=== PATIENT | female | born 2000 | race Caucasian/White ===

== ENCOUNTER 2019-06-23 12:50 | Emergency (ER) | payer OTHER, SELFPAY ==
[2019-06-23] MEDS ORDERED: dexAMETHasone 10 MG/ML VIAL ONE (13:22)
[2019-06-23] MEDS ORDERED: IPRATROPIUM BROM 0.5MG/2.5ML ONE (13:23)
[2019-06-23] MEDS ORDERED: ALBUTEROL 2.5 MG/3 ML NEB SOL ONE (13:23)
[2019-06-23] MEDS ORDERED: ONDANSETRON 4 MG (ODT) TAB ONE (15:37)
--- NOTE | 2019-06-23 15:46 | EDPHYS ---
Physician Documentation [facility] Name: Shannon Mcduffie Age: 19 yrs Sex: Female : 2000 Arrival Date: 06/23/2019 Time: 12:52 Bed 4 Private MD: ED Physician Ean Betancourt HPI: 06/23 13:04 This 19 yrs old Female presents to ER via Ambulatory with complaints of Chest jmm Pain, Breathing Difficulty. 13:04 The patient presents to the emergency department with wheezing, Current therapy: jmm albuterol inhaler. Onset: The symptoms/episode began/occurred gradually, 2 day(s) ago. Modifying factors: The symptoms are alleviated by inhaler, the symptoms are aggravated by damp environment. Associated signs and symptoms: Pertinent positives: chest pain, Pertinent negatives: fever. The patient has experienced similar episodes in the past. This is a 19 year old female with a history of asthma that presents to the ED with complaints of cough, wheezing, chest pain worsening over the past 2 days. Denies fever or chills. . 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 - Social history:: Smoking status: . - Ebola Screening: : Patient denies travel to an Ebola-affected area in the 21 days before illness onset. ROS: 13:04 Constitutional: Negative for fever, chills, and weight loss. jmm 13:04 Abdomen/GI: Negative for abdominal pain, nausea, vomiting, diarrhea, and constipation, Back: Negative for injury and pain, Neuro: Negative for headache, weakness, numbness, tingling, and seizure. 13:04 Cardiovascular: Positive for chest pain, with cough. 13:04 Respiratory: Positive for wheezing. 13:04 All other systems are negative. Exam: 13:04 Constitutional: This is a well developed, well nourished patient who is awake, alert, jmm and in no acute distress. Head/Face: atraumatic. Eyes: EOMI, no conjunctival erythema appreciated ENT: Moist Mucus Membranes Neck: Trachea midline, Supple Chest/axilla: Normal chest wall appearance and motion. 13:04 Abdomen/GI: Non distended, soft Back: Normal ROM Skin: General appearance color normal MS/ Extremity: Moves all extremities, no obvious deformities appreciated, no edema noted to the lower extremities Neuro: Awake and alert, normal gait Psych: Behavior is normal, Mood is normal, Patient is cooperative and pleasant 13:04 Cardiovascular: Rate: tachycardic, Rhythm: regular. 13:04 Respiratory: the patient does not display signs of respiratory distress, Respirations: normal, Breath sounds: wheezing: that is moderate, is heard diffusely. Vital Signs: 12:57 BP 132 / 84; Pulse 111; Resp 26; Temp 98.2; Pulse Ox 99% ; Weight 65.77 kg; Height 5 sv ft. 0 in. (152.40 cm); 13:47 BP 124 / 76; Pulse 122; Resp 20; Pulse Ox 100% on Nebulizer Mask; tw2 14:50 BP 130 / 83; Pulse 108; Resp 19; Pulse Ox 100% on R/A; tw2 15:29 BP 125 / 66; Pulse 111; Resp 19; Pulse Ox 100% on R/A; tw2 12:57 Body Mass Index 28.32 (65.77 kg, 152.40 cm) sv MDM: 13:04 Patient medically screened. [facility] 15:44 Data reviewed: vital signs, nurses notes. Counseling: I had a detailed discussion with abel the patient and/or guardian regarding: the historical points, exam findings, and any diagnostic results supporting the discharge/admit diagnosis, lab results, the need for outpatient follow up, to return to the emergency department if symptoms worsen or persist or if there are any questions or concerns that arise at home. ED course: Patient is alert and non toxic in appearance in the ED. Patient states she feels much better. Decreased wheezing on auscultation. Patient was otherwise given strict return precautions. Patient understood and agrees with the plan of care. . 06/23 15:26 Order name: Vital Signs; Complete Time: 15:29 abel Administered Medications: 13:30 Not Given (ordered po): Decadron - Dexamethasone 10 mg IVP once tw2 13:30 CANCELLED (Duplicate Order): Decadron - Dexamethasone 10 mg IVP once tw2 13:31 Drug: DuoNeb (3:1) (2.5 mg - 0.5 mg) 3 ml Route: Nebulizer; tw2 15:34 Follow up: Response: No adverse reaction tw2 13:31 Drug: Decadron 10 mg Route: PO; tw2 15:34 Follow up: Response: No adverse reaction tw2 15:36 Drug: Zofran 4 mg Route: PO; tw2 15:52 Follow up: Response: No adverse reaction tw2 Disposition: 17:06 Co-signature as Attending Physician, Ean Betancourt MD. rn Disposition: 06/23/19 15:45 Discharged to Home. Impression: Unspecified asthma with (acute) exacerbation. - Condition is Stable. - Discharge Instructions: Bronchospasm, Adult. - Prescriptions for Prednisone 20 mg Oral Tablet - take 3 tablet by ORAL route once daily for 5 days; 15 tablet. Albuterol Sulfate 90 mcg/actuation - inhale 1-2 puff by INHALATION route every 4-6 hours; 1 Inhaler. - Medication Reconciliation Form, Thank You Letter, Antibiotic Education, Prescription Opioid Use, Work release form, Family Work Release form. - Follow up: Private Physician; When: 2 - 3 days; Reason: Recheck today's complaints, Continuance of care, Re-evaluation by your physician. Signatures: Dena Cameron RN RN Cl Root PA PA [facility] Ean Betancourt MD MD rn Wise, Tara, RN RN tw2 Corrections: (The following items were deleted from the chart) 13:30 13:30 Decadron - Dexamethasone 10 mg IVP once ordered. tw2 tw2 13:47 13:11 IV Saline Lock ordered. [facility] tw2 15:51 15:45 06/23/2019 15:45 Discharged to Home. Impression: Palpitations; Drug Abuse. [facility] Condition is Stable. Forms are Work release form, Family Work Release, Medication Reconciliation Form, Thank You Letter, Antibiotic Education, Prescription Opioid Use. Follow up: Private Physician; When: 2 - 3 days; Reason: Recheck today's complaints, Continuance of care, Re-evaluation by your physician. [facility] 15:52 15:44 ED course: Patient is alert and non toxic in appearance in the ED. Patient states jmm he feels much better. Advised to d/c cocaine use. Patient otherwise given strict return precautions. Patient understood and agrees with the plan of care. . [facility] 16:02 15:51 06/23/2019 15:45 Discharged to Home. Impression: Unspecified asthma with (acute) tw2 exacerbation. Condition is Stable. Discharge Instructions: Stimulant Use Disorder-Cocaine, Palpitations. Forms are Work release form, Family Work Release, Medication Reconciliation Form, Thank You Letter, Antibiotic Education, Prescription Opioid Use. Follow up: Private Physician; When: 2 - 3 days; Reason: Recheck today's complaints, Continuance of care, Re-evaluation by your physician. abel
--- NOTE | 2019-06-23 15:46 | ER ---
Nurse's Notes [facility] Name: Shannon Mcduffie Age: 19 yrs Sex: Female : 2000 Arrival Date: 06/23/2019 Time: 12:52 Bed 4 Private MD: Diagnosis: Unspecified asthma with (acute) exacerbation Presentation: 06/23 12:57 Presenting complaint: Patient states: SOB with wheezing x 2 days, inhalers are not sv helping. c/o chest pain. Transition of care: patient was not received from another setting of care. Onset of symptoms was June 21, 2019. Risk Assessment: Do you want to hurt yourself or someone else? Patient reports no desire to harm self or others. Care prior to arrival: None. 12:57 Method Of Arrival: Ambulatory sv 12:57 Acuity: CLAIRE 2 sv 12:59 Initial Sepsis Screen: Does the patient meet any 2 criteria? RR > 20 per min. HR > 90 tw2 bpm. Yes Does the patient have a suspected source of infection? Yes: Productive cough/pneumonia. 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 - Social history:: Smoking status: . - Ebola Screening: : Patient denies travel to an Ebola-affected area in the 21 days before illness onset. Screenin:58 Abuse screen: Denies threats or abuse. Nutritional screening: No deficits noted. tw2 Tuberculosis screening: No symptoms or risk factors identified. Fall Risk None identified. Assessment: 13:00 Pain: Pain does not radiate. Pain began 2-3 days ago. Cardiovascular: Reports chest tw2 pain. 13:07 General: Appears in no apparent distress. Behavior is calm, cooperative, appropriate tw2 for age. Neuro: Level of Consciousness is awake, alert, obeys commands, Oriented to person, place, time, situation. Cardiovascular: Heart tones S1 S2 Capillary refill < 3 seconds Patient's skin is warm and dry. Respiratory: Reports shortness of breath at rest on exertion cough that is pain with respiration Airway is patent Respiratory effort is even, unlabored, Respiratory pattern is regular, tachypnea Breath sounds with wheezes in left posterior upper lobe and left posterior lower lobe. GI: No signs and/or symptoms were reported involving the gastrointestinal system. Abdomen is flat, Bowel sounds present X 4 quads. : No signs and/or symptoms were reported regarding the genitourinary system. EENT: No signs and/or symptoms were reported regarding the EENT system. Derm: No signs and/or symptoms reported regarding the dermatologic system. Musculoskeletal: Range of motion: intact in all extremities. 13:47 Reassessment: Patient appears in no apparent distress at this time. Patient and/or tw2 family updated on plan of care and expected duration. Pain level reassessed. Patient is alert, oriented x 3, equal unlabored respirations, skin warm/dry/pink. 14:08 Reassessment: Patient appears in no apparent distress at this time. Patient and/or tw2 family updated on plan of care and expected duration. Pain level reassessed. Patient is alert, oriented x 3, equal unlabored respirations, skin warm/dry/pink. Patient states feeling better. 14:50 Reassessment: Patient appears in no apparent distress at this time. Patient and/or tw2 family updated on plan of care and expected duration. Pain level reassessed. Patient is alert, oriented x 3, equal unlabored respirations, skin warm/dry/pink. Patient states feeling better. Vital Signs: 12:57 BP 132 / 84; Pulse 111; Resp 26; Temp 98.2; Pulse Ox 99% ; Weight 65.77 kg; Height 5 sv ft. 0 in. (152.40 cm); 13:47 BP 124 / 76; Pulse 122; Resp 20; Pulse Ox 100% on Nebulizer Mask; tw2 14:50 BP 130 / 83; Pulse 108; Resp 19; Pulse Ox 100% on R/A; tw2 15:29 BP 125 / 66; Pulse 111; Resp 19; Pulse Ox 100% on R/A; tw2 12:57 Body Mass Index 28.32 (65.77 kg, 152.40 cm) sv ED Course: 12:52 Patient arrived in ED. as 12:57 Triage completed. sv 12:58 Arm band placed on. sv 12:59 Patient maintains SpO2 saturation greater than 95% on room air. tw2 13:00 Bed in low position. Call light in reach. cardiac monitor on. Pulse ox on. NIBP on. tw2 13:01 Verenice Young RN is Primary Nurse. tw2 13:02 [facility] 13:02 Ean Betancourt MD is Attending Physician. [facility] 13:12 EKG done, by ED staff, reviewed by Ean Betancourt MD. kj1 13:28 Missed attempt(s): 22 gauge in left antecubital area. Bleeding controlled, band aid tw2 applied, catheter tip intact. Missed attempt(s): 22 gauge in right antecubital area. per Tech. Patricia Bleeding controlled, band aid applied, catheter tip intact. 16:02 No provider procedures requiring assistance completed. Patient did not have IV access tw2 during this emergency room visit. Administered Medications: 13:30 Not Given (ordered po): Decadron - Dexamethasone 10 mg IVP once tw2 13:30 CANCELLED (Duplicate Order): Decadron - Dexamethasone 10 mg IVP once tw2 13:31 Drug: DuoNeb (3:1) (2.5 mg - 0.5 mg) 3 ml Route: Nebulizer; tw2 15:34 Follow up: Response: No adverse reaction tw2 13:31 Drug: Decadron 10 mg Route: PO; tw2 15:34 Follow up: Response: No adverse reaction tw2 15:36 Drug: Zofran 4 mg Route: PO; tw2 15:52 Follow up: Response: No adverse reaction tw2 Outcome: 15:45 Discharge ordered by MD. [facility] 16:02 Discharged to home ambulatory, with significant other. tw2 16:02 Condition: stable 16:02 Discharge instructions given to patient, significant other, Instructed on discharge instructions, follow up and referral plans. medication usage, Demonstrated understanding of instructions, follow-up care, medications, Prescriptions given X 2. 16:02 Patient left the ED. tw2 Signatures: Dena Cameron RN RN Cl Root PA PA Ginna Colon as Verenice Young RN RN tw2 Britney Garland [email or web address] Corrections: (The following items were deleted from the chart) 12:58 12:57 Temp 98.2F; sv sv
[2019-06-23 16:07] VITALS: TEMP 98.2
[2019-06-23 16:08] VITALS: O2SAT 100
[2019-06-23 16:11] VITALS: BP 125/66
--- NOTE | 2019-06-25 05:30 | EKG ---
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
== END 2019-06-23 16:02 | disposition home or self-care (01) ==
LOC: ER 12:50
DX: J45.901 Unspecified asthma with (acute) exacerbation (principal)
CPT/HCPCS: 93005; 94640; 99285; J1100

== ENCOUNTER 2022-06-30 22:39 | Emergency (ER) | payer SELFPAY ==
--- OUTSIDE RECORDS SUMMARY | 2022-06-30 22:43 | XMS REPORT | Continuity of Care Document ---
:2000 Author Organization [facility] t Address [address] [place] [address] Care Team Providers Name Role Phone LoKirilljoana Boo Primary Care Physician Alex Lo Attending Clinician Unavailable Gerard Attending Clinician Unavailable DIPTI NEAL Attending Clinician Unavailable Pippa Attending Clinician Unavailable Doctor Unassigned, [place] Attending Clinician Unavailable QUENTIN Attending Clinician Unavailable ROQUE JERNIGAN Attending Clinician Unavailable ROQUE JERNIGAN Attending Clinician Unavailable Roque Jernigan MD Attending Clinician Gerard Admitting Clinician Unavailable Pippa Admitting Clinician Unavailable QUNETIN Admitting Clinician Unavailable Payers Payer Name Policy Type Policy Number Effective Date Expiration Date S lakhwinder ALLIED BENEFIT [id number] [facility] [id number] 2016 [employer] 00:00:00 (MEDICAID HMO) ALLIED BENEFIT 53 [id number] [facility] Problems Condition Condition Condition Status Onset Resolution Last Treating Co mments Source Name Details Category Date Date Treatment Clinician Date 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 Anxiety 2-14 da and and 00:00: Medical depressive Depressive 00 Gr oup disorder Disorder Problem Active 2021-06 [facility] 2-14 da 00:00: Medical 00 Group History of History of Problem Active 2021-06 M [facility] pre-eclamp Pre-eclamp 2-14 da renetta renetta 00:00: Medical 00 Group Rubella Rubella Problem Active 2021-06 [place] non-immune Non-immune 2-14 da 00:00: Medical 00 Group Removal of Removal of Problem Active M [facility] intrauteri Intrauteri 7-19 da ne device ne Device 00:00: [facility] rachel 00 Group Menorrhagi Menorrhagi Problem Active M [facility] a a 6-07 da 00:00: Medical 00 Group IUD IUD Problem Active [place] contracept Contracept 6-07 da ion ion 00:00: Medical 00 Group Insertion Insertion Problem Active [place] of of 3-08 da intrauteri Intrauteri 00:00: Me dical ne ne 00 Group contracept Contracept thalia device thalia Device Sore Sore Problem Active [place] throat Throat 2-23 da symptom Symptom 00:00: Medical 00 Group Acute Acute Problem Active [place] cystitis Cystitis 2-23 da 00:00: Medical 00 Group Infection Infection Problem Active [place] of of 2-23 da 00:00: Medica l section Section 00 Group AND/OR AND/OR perineal Perineal wound Wound Leukocytes Leukocytes Problem Active M [facility] in urine in Urine 2-15 da 00:00: Medical 00 Group Candidiasi Candidiasi Problem Active M [facility] s of s of 2-15 da vagina Vagina 00:00: Medical 00 Group Problem Active 2017- M [facility] depression Depression 2-08 da 00:00: Medical 00 Group Episiotomy Episiotomy Problem Active [facility] infection Infection 2-08 da 00:00: Medical 00 Group Problem Active [facility] care Care 2-08 da 00:00: Medical 00 Group Mild Mild Problem Active [place] pre-eclamp Pre-eclamp 1-11 da renetta renetta 00:00: Medical 00 Group Back pain Back Pain Problem Active 2016-06 [facility] complicati Complicati 2-11 da ng ng 00:00: Medical 00 Grou p Problem Active 2016-06 [facility] screening Screening 1-13 da 00:00: Medical 00 Group Gastroesop Gastroesop Problem Active 2016-06 [facility] hageal hageal 0-16 da reflux Reflux 00:00: Medical disease Disease 00 Group without without esophagiti Esophagiti s s Asthma Asthma Problem Active [place] 8-21 da 00:00: Medical 00 Group RhD RhD Problem Active [place] negative Negative 8 da 00:00: Medical 00 Group [id number] PTSD Problem Common (post-trau Spirit matic [facility] stress [facility] disorder) [facility] [id number] Moderate Problem Comm on persistent Spirit asthma - [facility] without [facility] complicati [facility] Metallic Metallic Problem Commo n taste taste [facility] - [facility] [id number] Unable to Problem Comm on concentrat Spirit e - [facility] [id number] Migraine Problem Comm on without Spirit aura and - [facility] without [facility] migrainosu Medica l s, not Center intractabl e [id number] Other Problem Common chronic Spirit pain - [facility] [id number] Memory Problem Common change Spirit - [facility] No known No known Disease Unive rs active active ity of problems problems [place] [facility] Allergies, Adverse Reactions, Alerts This patient has no known allergies or adverse reactions. Social History Social Habit Start Date Stop Date Quantity Comments Source History of Tobacco Common [facility] - [facility] Use [facility] Sex Assigned At Common Sp aicha - [facility] Exposure to 2021-12-05 2021-12-15 Not sure [facility] SARS-CoV-2 (event) 00:00:00 08:32:00 [facility] Smoking Status Start Date Stop Date Source Tobacco smoking consumption [facility] Branch Never Smoker Common [facility] Medications Ordered Filled Start Stop Current Ordering Indication Dosage Frequency Signature Comments Components Source Medication Medication Date Date Medication? Clinician (SIG) Name Name Symbicort Symbicort 2021-06- No 2{puffs BID Symbicort 80-4.5 80-4.5 06-2816 } 80-4.5 MCG/ACT MCG/ACT 00:00: 00:00 MCG/ACT 00 :00 Symbicort Symbicort 2021-06- No 2{puffs BID Symbicort 80-4.5 80-4.5 06-2816 } 80-4.5 MCG/ACT MCG/ACT 00:00: 00:00 MCG/ACT 00 :00 busPIRone busPIRone 2021-06 No 1{table BID busPIRone HCl 10 MG HCl 10 MG 0-12 t} HCl 10 MG 00:00: 00 ProAir HFA ProAir HFA 2021-06 No 2{puffs ProAir HFA 108 (90 108 (90 0-12 _as_nee 108 (90 Base) Base) 00:00: ded} Base) MCG/ACT MCG/ACT 00 MCG/ACT Topiramate Topiramate 2021-06 No QD Topiramate 25 MG 25 MG 0-12 25 MG 00:00: 00 busPIRone busPIRone 2021-06 No 1{table BID busPIRone HCl 10 MG HCl 10 MG 0-12 t} HCl 10 MG 00:00: 00 ProAir HFA ProAir HFA 2021-06 No 2{puffs ProAir HFA 108 (90 108 (90 0-12 _as_nee 108 (90 Base) Base) 00:00: ded} Base) MCG/ACT MCG/ACT 00 MCG/ACT Topiramate Topiramate 2021-06 No QD Topiramate 25 MG 25 MG 0-12 25 MG 00:00: 00 Fluticasone Fluticasone No 1{puff} BID Fluticason -Salmeterol -Salmeterol 02-17 e-Salmeter 232-14 232-14 00:00: ol 232-14 MCG/ACT MCG/ACT 00 MCG/ACT buPROPion buPROPion No 1{table QD buPROPion HCl ER (SR) HCl ER (SR) 02-17 t_in_th HCl ER 150 MG 150 MG 00:00: e_morni (SR) 150 00 ng} MG Fluticasone Fluticasone No 1{puff} BID Fluticason -Salmeterol -Salmeterol 02-17 e-Salmeter 232-14 232-14 00:00: ol 232-14 MCG/ACT MCG/ACT 00 MCG/ACT buPROPion buPROPion 0 No 1{table QD buPROPion HCl ER (SR) HCl ER (SR) 02-17 t_in_th HCl ER 150 MG 150 MG 00:00: e_morni (SR) 150 00 ng} MG Fluticasone Fluticasone No 1{puff} BID Fluticason -Salmeterol -Salmeterol 02-17 e-Salmeter 232-14 232-14 00:00: ol 232-14 MCG/ACT MCG/ACT 00 MCG/ACT buPROPion buPROPion 0 No 1{table QD buPROPion HCl ER (SR) HCl ER (SR) 02-17 t_in_th HCl ER 150 MG 150 MG 00:00: e_morni (SR) 150 00 ng} MG Fluticasone Fluticasone No 1{puff} BID Fluticason -Salmeterol -Salmeterol 02-17 e-Salmeter 232-14 232-14 00:00: ol 232-14 MCG/ACT MCG/ACT 00 MCG/ACT buPROPion buPROPion 0 No 1{table QD buPROPion HCl ER (SR) HCl ER (SR) 02-17 t_in_th HCl ER 150 MG 150 MG 00:00: e_morni (SR) 150 00 ng} MG Fluticasone Fluticasone 0 No 1{puff} BID Fluticason -Salmeterol -Salmeterol 02-17 e-Salmeter 232-14 232-14 00:00: ol 232-14 MCG/ACT MCG/ACT 00 MCG/ACT buPROPion buPROPion 2021-0 No 1{table QD buPROPion HCl ER (SR) HCl ER (SR) 02-17 t_in_th HCl ER 150 MG 150 MG 00:00: e_morni (SR) 150 00 ng} MG Amitriptyli Amitriptyli No QD Amitriptyl ne HCl 25 ne HCl 25 8-08 ine HCl 25 MG MG 00:00: MG 00 Amitriptyli Amitriptyli No QD Amitriptyl ne HCl 25 ne HCl 25 8-08 ine HCl 25 MG MG 00:00: MG 00 Amitriptyli Amitriptyli No QD Amitriptyl ne HCl 25 ne HCl 25 8-08 ine HCl 25 MG MG 00:00: MG 00 Symbicort Symbicort 2021- No 2{puffs BID Symbicort 80-4.5 80-4.5 01-18 } 80-4.5 MCG/ACT MCG/ACT 00:00: 00:00 MCG/ACT 00 :00 Symbicort Symbicort 2021- No 2{puffs BID Symbicort 80-4.5 80-4.5 01-18 } 80-4.5 MCG/ACT MCG/ACT 00:00: 00:00 MCG/ACT 00 :00 Symbicort Symbicort 2021- No 2{puffs BID Symbicort 80-4.5 80-4.5 01-18 } 80-4.5 MCG/ACT MCG/ACT 00:00: 00:00 MCG/ACT 00 :00 rho,D, Yes rho(D) Univers immune 12-11 immune ity of globulin 09:23: globulin [place] 1,500 unit 31 1,500 unit Med ical (300 mcg) (300 mcg) [facility] syringe intramuscu lar syringe Inject 300 micrograms by intramuscu lar route. acetaminoph Yes Tylenol-Co Univers en-codeine 12-11 deine #3 ity o f (TYLENOL-CO 09:23: 300 mg-30 [place] DEINE #3) 31 mg tablet Medic al 300-30 mg Take 1 Branch tablet tablet every 6 hours by oral route. cephALEXin Yes cephalexin U nivers 500 mg 12-11 500 mg ity of capsule 09:23: capsule [address] Branch citalopram Yes citalopram U nivers 20 mg 12-11 20 mg ity of tablet 09:23: tablet [address] Ferrous Yes ferrous Univers Gluconate 12-11 gluconate ity o f 240 mg (27 09:23: 240 mg (27 [place] mg iron) 31 mg iron) Medical tablet tablet Branch Take 1 tablet every day by oral route. ibuprofen Yes ibuprofen Uni vers 800 mg 12-11 800 mg ity of tablet 09:23: tablet [place] [address] Take 1 Medical tablet 3 Branch times a day by oral route as needed. metoclopram Yes metoclopra Univers jim HCl 10 12-11 mide 10 mg ity of mg tablet 09:23: tablet [address] omeprazole Yes omeprazole U nivers 20 mg 12-11 20 mg ity of capsule 09:23: [place] [facility] Branch rho,D, Yes rho(D) Univers immune 12-11 immune ity of globulin 09:23: globulin [place] 1,500 unit 1,500 unit Med ical (300 mcg) (300 mcg) [facility] h syringe intramuscu lar syringe Inject 300 micrograms by intramuscu lar route. acetaminoph Yes Tylenol-Co Univers en-codeine 12-11 deine #3 ity o f (TYLENOL-CO 09:23: 300 mg-30 [place] DEINE #3) 31 mg tablet Medic al 300-30 mg Take 1 Branch tablet tablet every 6 hours by oral route. cephALEXin Yes cephalexin U nivers 500 mg 12-11 500 mg ity of capsule 09:23: capsule [address] citalopram Yes citalopram U nivers 20 mg 12-11 20 mg ity of tablet 09:23: tablet [address] Ferrous Yes ferrous Univers Gluconate 12-11 gluconate ity o f 240 mg (27 09:23: 240 mg (27 [place] mg iron) 31 mg iron) Medical tablet tablet Branch Take 1 tablet every day by oral route. ibuprofen Yes ibuprofen Uni vers 800 mg 12-11 800 mg ity of tablet 09:23: tablet [place] [address] Take 1 Medical tablet 3 Branch times a day by oral route as needed. metoclopram Yes metoclopra Univers jim HCl 10 12-11 mide 10 mg ity of mg tablet 09:23: tablet [place] [address] Medical Branch omeprazole Yes omeprazole U nivers 20 mg 12-11 20 mg ity of capsule 09:23: capsule,[place] [facility] Branch escitalopra Yes Ángel s m oxalate 6-20 ity of 10 mg 00:00: [place] tablet 00 Medical Branch escitalopra Yes Abbyer s m oxalate 6-20 ity of 10 mg 00:00: [place] tablet 00 [facility] Branch albuterol albuterol No albuterol [place] sulfate HFA sulfate HFA sulfate da 90 90 HFA 90 Medical mcg/actuati mcg/actuati mcg/actuat Group on aerosol on aerosol ion inhaler inhaler aerosol inhaler buspirone 5 buspirone 5 No 1 BID buspirone [place] mg tablet mg tablet 5 mg da Take 1 Take 1 tablet Medical tablet tablet Take 1 Group twice a day twice a day tablet by oral by oral twice a route. route. day by oral route. fluticasone fluticasone No fluticason [place] 232 232 e 232 da mcg-salmete mcg-salmete mcg-salmet Medical rol 14 rol 14 maria luisa 14 Group mcg/actuati mcg/actuati mcg/actuat on breath on breath ion breath activated activated activated powdr powdr powdr Symbicort Symbicort No Symbicort [place] 160 mcg-4.5 160 mcg-4.5 160 d a mcg/actuati mcg/actuati mcg-4.5 Medical on HFA on HFA mcg/actuat Group aerosol aerosol ion HFA inhaler inhaler aerosol inhaler Symbicort Symbicort No Symbicort [place] 80 mcg-4.5 80 mcg-4.5 80 mcg-4.5 da mcg/actuati mcg/actuati mcg/actuat Medical on HFA on HFA ion HFA Group aerosol aerosol aerosol inhaler inhaler inhaler albuterol albuterol No albuterol [place] sulfate HFA sulfate HFA sulfate da 90 90 HFA 90 Medical mcg/actuati mcg/actuati mcg/actuat Group on aerosol on aerosol ion inhaler inhaler aerosol inhaler buspirone 5 buspirone 5 No buspirone [place] mg tablet mg tablet 5 mg da Take 1 Take 1 tablet Medical tablet tablet Take 1 Group twice a day twice a day tablet by oral by oral twice a route. route. day by oral route. Wellbutrin Wellbutrin No 1 BID Wellbutrin [place] SR 150 mg SR 150 mg SR 150 mg da tablet, 12 tablet, 12 tablet, 12 Medical hr hr hr Group sustained-r sustained-r sustained- elease Take elease Take release 1 tablet 1 tablet Take 1 twice a day twice a day tablet by oral by oral twice a route as route as day by directed directed oral route for 30 for 30 as days. days. directed for 30 days. Tri-Lo-Spri Tri-Lo-Spri No 1{table QD Tri-Lo-Spr ntec ntec t} intec 0.18/0.215/ 0.18/0.215/ 0.18/0.215 0.25 MG-25 0.25 MG-25 /0.25 MCG MCG MG-25 MCG Spironolact Spironolact No 1{table QD Spironolac one 50 MG one 50 MG t} tone 50 MG Tri-Lo-Spri Tri-Lo-Spri No 1{table QD Tri-Lo-Spr ntec ntec t} intec 0.18/0.215/ 0.18/0.215/ 0.18/0.215 0.25 MG-25 0.25 MG-25 /0.25 MCG MCG MG-25 MCG Spironolact Spironolact No 1{table QD Spironolac one 50 MG one 50 MG t} tone 50 MG Tri-Lo-Spri Tri-Lo-Spri No 1{table QD Tri-Lo-Spr ntec ntec t} intec 0.18/0.215/ 0.18/0.215/ 0.18/0.215 0.25 MG-25 0.25 MG-25 /0.25 MCG MCG MG-25 MCG Spironolact Spironolact No 1{table QD Spironolac one 50 MG one 50 MG t} tone 50 MG Tri-Lo-Spri Tri-Lo-Spri No 1{table QD Tri-Lo-Spr ntec ntec t} intec 0.18/0.215/ 0.18/0.215/ 0.18/0.215 0.25 MG-25 0.25 MG-25 /0.25 MCG MCG MG-25 MCG Spironolact Spironolact No 1{table QD Spironolac one 50 MG one 50 MG t} tone 50 MG Tri-Lo-Spri Tri-Lo-Spri No 1{table QD Tri-Lo-Spr ntec ntec t} intec 0.18/0.215/ 0.18/0.215/ 0.18/0.215 0.25 MG-25 0.25 MG-25 /0.25 MCG MCG MG-25 MCG Spironolact Spironolact No 1{table QD Spironolac one 50 MG one 50 MG t} tone 50 MG Spironolact Spironolact No 1{table QD Spironolac one 50 MG one 50 MG t} tone 50 MG Tri-Lo-Spri Tri-Lo-Spri No 1{table QD Tri-Lo-Spr ntec ntec t} intec 0.18/0.215/ 0.18/0.215/ 0.18/0.215 0.25 MG-25 0.25 MG-25 /0.25 MCG MCG MG-25 MCG Escitalopra Escitalopra No 1{table QD Escitalopr m Oxalate m Oxalate t} am Oxalate 10 MG 10 MG 10 MG Atomoxetine Atomoxetine No 1{capsu QD Atomoxetin HCl 40 MG HCl 40 MG le_in_t e HCl 40 he_morn MG ing} Spironolact Spironolact No 1{table QD Spironolac one 50 MG one 50 MG t} tone 50 MG Tri-Lo-Spri Tri-Lo-Spri No 1{table QD Tri-Lo-Spr ntec ntec t} intec 0.18/0.215/ 0.18/0.215/ 0.18/0.215 0.25 MG-25 0.25 MG-25 /0.25 MCG MCG MG-25 MCG Atomoxetine Atomoxetine No 1{capsu QD Atomoxetin HCl 80 MG HCl 80 MG le_in_t e HCl 80 he_morn MG ing} Spironolact Spironolact No 1{table QD Spironolac one 50 MG one 50 MG t} tone 50 MG Tri-Lo-Spri Tri-Lo-Spri No 1{table QD Tri-Lo-Spr ntec ntec t} intec 0.18/0.215/ 0.18/0.215/ 0.18/0.215 0.25 MG-25 0.25 MG-25 /0.25 MCG MCG MG-25 MCG Atomoxetine Atomoxetine No 1{capsu QD Atomoxetin HCl 80 MG HCl 80 MG le_in_t e HCl 80 he_morn MG ing} Spironolact Spironolact No 1{table QD Spironolac one 50 MG one 50 MG t} tone 50 MG Tri-Lo-Spri Tri-Lo-Spri No 1{table QD Tri-Lo-Spr ntec ntec t} intec 0.18/0.215/ 0.18/0.215/ 0.18/0.215 0.25 MG-25 0.25 MG-25 /0.25 MCG MCG MG-25 MCG Atomoxetine Atomoxetine No 1{capsu QD Atomoxetin HCl 80 MG HCl 80 MG le_in_t e HCl 80 he_morn MG ing} Spironolact Spironolact No 1{table QD Spironolac one 50 MG one 50 MG t} tone 50 MG Atomoxetine Atomoxetine No 1{capsu QD Atomoxetin HCl 80 MG HCl 80 MG le_in_t e HCl 80 he_morn MG ing} Tri-Lo-Spri Tri-Lo-Spri No 1{table QD Tri-Lo-Spr ntec ntec t} intec 0.18/0.215/ 0.18/0.215/ 0.18/0.215 0.25 MG-25 0.25 MG-25 /0.25 MCG MCG MG-25 MCG Amitriptyli Amitriptyli No 1{table QD Amitriptyl ne HCl 25 ne HCl 25 t_at_be ine HCl 25 MG MG dtime} MG Spironolact Spironolact No 1{table QD Spironolac one 50 MG one 50 MG t} tone 50 MG Atomoxetine Atomoxetine No 1{capsu QD Atomoxetin HCl 80 MG HCl 80 MG le_in_t e HCl 80 he_morn MG ing} Tri-Lo-Spri Tri-Lo-Spri No 1{table QD Tri-Lo-Spr ntec ntec t} intec 0.18/0.215/ 0.18/0.215/ 0.18/0.215 0.25 MG-25 0.25 MG-25 /0.25 MCG MCG MG-25 MCG Amitriptyli Amitriptyli No 1{table QD Amitriptyl ne HCl 25 ne HCl 25 t_at_be ine HCl 25 MG MG dtime} MG Spironolact Spironolact No 1{table QD Spironolac one 50 MG one 50 MG t} tone 50 MG Atomoxetine Atomoxetine No 1{capsu QD Atomoxetin HCl 80 MG HCl 80 MG le_in_t e HCl 80 he_morn MG ing} Tri-Lo-Spri Tri-Lo-Spri No 1{table QD Tri-Lo-Spr ntec ntec t} intec 0.18/0.215/ 0.18/0.215/ 0.18/0.215 0.25 MG-25 0.25 MG-25 /0.25 MCG MCG MG-25 MCG Amitriptyli Amitriptyli No 1{table QD Amitriptyl ne HCl 25 ne HCl 25 t_at_be ine HCl 25 MG MG dtime} MG Spironolact Spironolact No 1{table QD Spironolac one 50 MG one 50 MG t} tone 50 MG Tri-Lo-Spri Tri-Lo-Spri No 1{table QD Tri-Lo-Spr ntec ntec t} intec 0.18/0.215/ 0.18/0.215/ 0.18/0.215 0.25 MG-25 0.25 MG-25 /0.25 MCG MCG MG-25 MCG Atomoxetine Atomoxetine No 1{capsu QD Atomoxetin HCl 80 MG HCl 80 MG le_in_t e HCl 80 he_morn MG ing} Fluticasone Fluticasone No 1{puff} BID Fluticason -Salmeterol -Salmeterol e-Salmeter 232-14 232-14 ol 232-14 MCG/ACT MCG/ACT MCG/ACT ProAir HFA ProAir HFA No 2{puffs ProAir HFA 108 (90 108 (90 _as_nee 108 (90 Base) Base) ded} Base) MCG/ACT MCG/ACT MCG/ACT Tri-Lo-Spri Tri-Lo-Spri No 1{table QD Tri-Lo-Spr ntec ntec t} intec 0.18/0.215/ 0.18/0.215/ 0.18/0.215 0.25 MG-25 0.25 MG-25 /0.25 MCG MCG MG-25 MCG Spironolact Spironolact No 1{table QD Spironolac one 50 MG one 50 MG t} tone 50 MG ProAir HFA ProAir HFA No 2{puffs ProAir HFA 108 (90 108 (90 _as_nee 108 (90 Base) Base) ded} Base) MCG/ACT MCG/ACT MCG/ACT Tri-Lo-Spri Tri-Lo-Spri No 1{table QD Tri-Lo-Spr ntec ntec t} intec 0.18/0.215/ 0.18/0.215/ 0.18/0.215 0.25 MG-25 0.25 MG-25 /0.25 MCG MCG MG-25 MCG Spironolact Spironolact No 1{table QD Spironolac one 50 MG one 50 MG t} tone 50 MG Spironolact Spironolact No 1{table QD Spironolac one 50 MG one 50 MG t} tone 50 MG Atomoxetine Atomoxetine No 1{capsu QD Atomoxetin HCl 80 MG HCl 80 MG le_in_t e HCl 80 he_morn MG ing} Tri-Lo-Spri Tri-Lo-Spri No 1{table QD Tri-Lo-Spr ntec ntec t} intec 0.18/0.215/ 0.18/0.215/ 0.18/0.215 0.25 MG-25 0.25 MG-25 /0.25 MCG MCG MG-25 MCG Amitriptyli Amitriptyli No 1{table QD Amitriptyl ne HCl 25 ne HCl 25 t_at_be ine HCl 25 MG MG dtime} MG Spironolact Spironolact No 1{table QD Spironolac one 50 MG one 50 MG t} tone 50 MG Atomoxetine Atomoxetine No 1{capsu QD Atomoxetin HCl 80 MG HCl 80 MG le_in_t e HCl 80 he_morn MG ing} Tri-Lo-Spri Tri-Lo-Spri No 1{table QD Tri-Lo-Spr ntec ntec t} intec 0.18/0.215/ 0.18/0.215/ 0.18/0.215 0.25 MG-25 0.25 MG-25 /0.25 MCG MCG MG-25 MCG Amitriptyli Amitriptyli No 1{table QD Amitriptyl ne HCl 25 ne HCl 25 t_at_be ine HCl 25 MG MG dtime} MG Spironolact Spironolact No 1{table QD Spironolac one 50 MG one 50 MG t} tone 50 MG Tri-Lo-Spri Tri-Lo-Spri No 1{table QD Tri-Lo-Spr ntec ntec t} intec 0.18/0.215/ 0.18/0.215/ 0.18/0.215 0.25 MG-25 0.25 MG-25 /0.25 MCG MCG MG-25 MCG Atomoxetine Atomoxetine No 1{capsu QD Atomoxetin HCl 80 MG HCl 80 MG le_in_t e HCl 80 he_morn MG ing} Fluticasone Fluticasone No 1{puff} BID Fluticason -Salmeterol -Salmeterol e-Salmeter 232-14 232-14 ol 232-14 MCG/ACT MCG/ACT MCG/ACT Tri-Lo-Spri Tri-Lo-Spri No 1{table QD Tri-Lo-Spr ntec ntec t} intec 0.18/0.215/ 0.18/0.215/ 0.18/0.215 0.25 MG-25 0.25 MG-25 /0.25 MCG MCG MG-25 MCG Spironolact Spironolact No 1{table QD Spironolac one 50 MG one 50 MG t} tone 50 MG Vital Signs Vital Name Observation Time Observation Value Comments Source BP Systolic 2022-06-23 00:00:00 120 mm[Hg] [facility] Body Weight 2022-06-23 00:00:00 151.5 [lb_av] [facility] BP Diastolic 2022-06-23 00:00:00 87 mm[Hg] [facility] Height 2022-06-23 00:00:00 60 [in_i] [facility] BMI (Body Mass 2022-06-23 00:00:00 29.6 kg/m2 [facility]) Group BP Diastolic 2022-05-26 00:00:00 75 mm[Hg] [facility] Height 2022-05-26 00:00:00 60 [facility] BMI (Body Mass 2022-05-26 00:00:00 29.9 kg/m2 [facility] Index) Group BP Systolic 2022-05-26 00:00:00 122 mm[Hg] [facility] Body Weight 2022-05-26 00:00:00 153.1 [lb_av[facility] height 2022-04-28 14:00:00 61 [in_i] [facility] weight 2022-04-28 14:00:00 151 [lb_av] [facility] temperature 2022-04-28 14:00:00 97.5 [degF] [facility] bmi 2022-04-28 14:00:00 28.53 kg/m2 [facility] oximetry 2022-04-28 14:00:00 100 % [facility] respiratory rate 2022-04-28 14:00:00 18 /min Comm on [facility] blood pressure 2022-04-28 14:00:00 134 mm[Hg] Common [facility] - systolic [facility] blood pressure 2022-04-28 14:00:00 81 mm[Hg] Common [facility] - diastolic [facility] height 2022-03-24 15:50:00 61 [in_i] Common [facility] weight 2022-03-24 15:50:00 150.7 [lb_av] [facility] temperature 2022-03-24 15:50:00 97.2 [degF] [facility] bmi 2022-03-24 15:50:00 28.47 kg/m2 [facility] oximetry 2022-03-24 15:50:00 99 % Common [facility] respiratory rate 2022-03-24 15:50:00 18 /min Comm on [facility] blood pressure 2022-03-24 15:50:00 117 mm[Hg] Common [facility] - systolic [facility] blood pressure 2022-03-24 15:50:00 71 mm[Hg] Common [facility] - diastolic [facility] height 2022-02-17 16:00:00 61 [in_i] Common [facility] weight 2022-02-17 16:00:00 148.1 [lb_av] [facility] temperature 2022-02-17 16:00:00 97.9 [degF] [facility] bmi 2022-02-17 16:00:00 27.98 kg/m2 [facility] oximetry 2022-02-17 16:00:00 96 % [facility] respiratory rate 2022-02-17 16:00:00 17 /min Comm on [facility] blood pressure 2022-02-17 16:00:00 121 mm[Hg] [facility] systolic [facility] blood pressure 2022-02-17 16:00:00 67 mm[Hg] Common [facility] - diastolic [facility] height 2022-01-18 16:10:00 61 [in_i] [facility] weight 2022-01-18 16:10:00 143.4 [lb_av] [facility] temperature 2022-01-18 16:10:00 97.9 [degF] Common [facility] bmi 2022-01-18 16:10:00 27.09 kg/m2 [facility] oximetry 2022-01-18 16:10:00 100 % Common [facility] respiratory rate 2022-01-18 16:10:00 18 /min Comm on [facility] blood pressure 2022-01-18 16:10:00 129 mm[Hg] Common [facility] - systolic [facility] blood pressure 2022-01-18 16:10:00 71 mm[Hg] Common [facility] - diastolic [facility] height 2021-12-21 13:50:00 61 [in_i] Common [facility] weight 2021-12-21 13:50:00 138 [lb_av] Common [facility] temperature 2021-12-21 13:50:00 98.0 [degF] [facility] bmi 2021-12-21 13:50:00 26.07 kg/m2 [facility] oximetry 2021-12-21 13:50:00 100 % [facility] respiratory rate 2021-12-21 13:50:00 16 /min Comm on [facility] - [facility] blood pressure 2021-12-21 13:50:00 121 mm[Hg] Common [facility] - systolic [facility] blood pressure 2021-12-21 13:50:00 74 mm[Hg] Common [facility] - diastolic [facility] Systolic blood 2021-12-11 14:27:00 120 mm[Hg] Univer sity of pressure [facility] Diastolic blood 2021-12-11 14:27:00 83 mm[Hg] Unive rsity of pressure [facility] Heart rate 2021-12-11 14:27:00 76 /min [facility] Body height 2021-12-11 14:27:00 152.4 cm [facility] Body weight 2021-12-11 14:27:00 63.957 kg [facility] BMI 2021-12-11 14:27:00 27.54 kg/m2 [facility] Oxygen saturation in 2021-12-11 14:27:00 98 /min [facility] Arterial blood by [facility] Pulse oximetry Branch blood pressure 2021-11-12 13:40:00 58 mm[Hg] [facility] - diastolic [facility] height 2021-11-12 13:40:00 60 [in_i] [facility] weight 2021-11-12 13:40:00 141.4 [lb_av] [facility] temperature 2021-11-12 13:40:00 98.1 [degF] [facility] bmi 2021-11-12 13:40:00 27.61 kg/m2 [facility] oximetry 2021-11-12 13:40:00 100 % [facility] respiratory rate 2021-11-12 13:40:00 18 /min Comm on [facility] blood pressure 2021-11-12 13:40:00 121 mm[Hg] [facility] systolic [facility] Procedures Procedure Date / Time Performed Performing Clinician [facility] e US, obstetric, 2022-06-23 00:00:00 [facility] US, obstetric, 2022-05-26 00:00:00 [facility] EXTERNAL PROVIDER 2022-01-19 05:01:00 Doctor Unassigned, No [facility] RECORDS Name Medical Branch Plan of Care Planned Activity Planned Date Details Comments Source Diagnostic Test 2022-06-23 urinalysis, dipstick Luis valadez [facility] Pending 00:00:00 [code = urinalysis, Group dipstick] Diagnostic Test 2022-06-23 aneuploidy risk, Ismael hernandez [facility] Pending 00:00:00 chromosome specific Group circulating cell free (ccf) DNA, maternal serum [code = aneuploidy risk, chromosome specific circulating cell free (ccf) DNA, maternal serum] Diagnostic Test 2022-06-23 genetic screen, Melida [facility] Pending 00:00:00 unspecified specimen Group [code = genetic screen, unspecified specimen] Future Appointment 2022-07-21 [facility] 11:15:00 [address] [facility] [address]; , [place] [address] Future Appointment 2022-07-21 [facility] [address] [facility] 11:00:00 [facility] [address]; , [place] [address] Instructions [facility] Group Encounters Start End Encounter Admission Attending Care Care Encounter Source Date/Time Date/Time Type Type Clinicians Facility Department ID 2021-12-18 Outpatient WINSOME Lo [facility] [id number] Common 14:13:01 [facility] 2021-11-12 Outpatient WINSOME Lo [facility] [id number] Common 13:07:03 [facility] 2022-06-23 2022-06-23 Outpatient White_M MMG MMG [id number] [place] 00:00:00 00:00:00 0111 Medical [facility] 2022-06-23 2022-06-23 Rabia MM [place] - [id number] M at[place]or 00:00:00 00:00:00 Aziza Hermosillo MD: [address] [place] [address] , Ph. [phone] 2022-06-17 2022-06-17 Outpatient White_M MMG MMG [id number] [place] 00:00:00 00:00:00 0105 Medical Group 2022-05-26 2022-05-26 Outpatient [facility] [id number] [place] 10:55:00 10:55:00 DIPTI [id number] [facility] 2022-05-26 2022-05-26 Outpatient White_M MMG MMG [id number] [place] 00:00:00 00:00:00 1214 Medical Group 2022-05-26 2022-05-26 Dipti [facility] [place] - [id number] M at[place]or 00:00:00 00:00:00 Discovery Kayla Neal-BC: Medical Medical [address] [place] [address], [place] [address] , Ph. [phone] 2022-04-30 2022-04-30 ([facility]) [facility] [id number] Co mmon 00:00:00 00:00:00 [facility] 2022-04-28 2022-04-28 OFFICE STLMLC STLMLC [id number] Co mmon 00:00:00 00:00:00 VISIT Spirit ESTAB PT - CHI LEVEL 4 [facility] 2022-04-26 2022-04-26 Outpatient Shield MMG MMG [id number] [place] 00:00:00 00:00:00 1114 [facility] 2022-03-24 2022-03-24 OFFICE STLMLC STLMLC [id number] Co mmon 00:00:00 00:00:00 VISIT Spirit ESTAB PT - CHI LEVEL [address] [place] [address] 2022-03-04 2022-03-04 (WEB) STLMLC STLMLC [id number] Co mmon 00:00:00 00:00:00 [facility] 2022-03-04 2022-03-04 (WEB) STLMLC STLMLC [id number] Co mmon 00:00:00 00:00:00 [facility] 2022-02-17 2022-02-17 OFFICE STLMLC STLMLC [id number] Co mmon 00:00:00 00:00:00 VISIT Spirit ESTAB PT - CHI LEVEL [address] [place] [address] 2022-02-11 2022-02-11 (WEB) STLMLC STLMLC [id number] Co mmon 00:00:00 00:00:00 [facility] 2022-01-20 2022-01-20 (WEB) STLMLC STLMLC [id number] Co mmon 00:00:00 00:00:00 [facility] 2022-01-19 2022-01-19 Orders Doctor ROSALINA [id number] Univers 00:00:00 00:00:00 Only Unassigned, MARGO [id number] ity of [place] [facility] [id number] Toby as [phone] [facility] rachel 009 Branch 2022-01-18 2022-01-18 OFFICE STLMLC STLMLC [id number] Co mmon 00:00:00 00:00:00 VISIT Spirit ESTAB PT - CHI LEVEL 4 [facility] 2022-01-07 2022-01-07 Outpatient WILFRED CORDERO [facility] [id number] [place] 00:00:00 00:00:00 SSA 0728 da [facility] 2021-12-21 2021-12-21 [facility] [id number] Co mmon 00:00:00 00:00:00 VISIT Darrin ARGUELLES PT - CHI LEVEL 4 [facility] 2021-12-15 2021-12-15 Outpatient ROQUE KRAFT [facility] [id number] Univers 08:40:00 09:22:31 ROQUE JERNIGAN [facility] 2021-12-15 2021-12-15 Office Rere [facility] [id number] Univers 08:40:00 09:22:31 Visit [facility] [id number] ity [facility] [id number] Toby as SAMUEL?BLEA [phone] [address] OFFICE [facility] 2021-12-15 2021-12-15 Outpatient ROQUE KRAFT [facility] [id number] Univers 08:40:00 09:22:31 ROQUE JERNIGAN [facility] 2021-12-11 2021-12-11 Office Rere MOTRISTIN [id number] Univers 09:00:00 09:40:00 Visit [facility] [id number] ity leonides [place] [id number] Toby as SAMUEL?BLEA [phone] [address] MEDICAL OFFICE BUILDING 2021-12-11 2021-12-11 Outpatient ROQUE KRAFT [facility] [id number] Univers 09:00:00 09:00:00 ROQUE JERNIGAN rashaad [facility] 2021-12-11 2021-12-11 Outpatient ROQUE KRAFT [facility] [id number] Univers 09:00:00 09:00:00 ROQUE JERNIGAN [facility] 2021-12-11 2021-12-11 Orders Doctor ROSALINA [id number] Univers 00:00:00 00:00:00 Only Unassigned, MARGO [id number] ity of [place] [facility] [id number] Toby as [phone] [place] [address] Branch 2021-11-16 2021-11-16 (WEB) STLMLC STLMLC [id number] Co mmon 00:00:00 00:00:00 [facility] 2021-11-13 2021-11-13 (WEB) STLMLC STLMLC [id number] Co mmon 00:00:00 00:00:00 [facility] 2021-11-13 2021-11-13 (WEB) STLMLC STLMLC [id number] Co mmon 00:00:00 00:00:00 [facility] 2021-11-13 2021-11-13 (WEB) STLMLC STLMLC [id number] Co mmon 00:00:00 00:00:00 [facility] 2021-11-13 2021-11-13 (WEB) STLMLC STLMLC [id number] Co mmon 00:00:00 00:00:00 [facility] 2021-11-12 2021-11-12 OFFICE STLMLC STLMLC [id number] Co mmon 00:00:00 00:00:00 VISIT NEW [facility] it PT LEVEL 3 [facility] 2020-04-30 2020-04-30 Outpatient Shield MMG [facility] [id number] [place] 02:24:00 02:24:00 1118 [facility] Results Test Description Test Time Test Comments Results Result Comments Source Urinalysis macro (dipstick) panel - Urine 2022-06-23 15:10:2 2 Test Item Value Reference Range Interpretation Comme nts Leukocytes (test code = Leukocytes) Trace Nitrite (test code = Nitrite) negative Urobilinogen (test code = Urobilinogen) .2 Protein (test code = Protein) Negative pH (test code = pH) 7.0 Blood (test code = Blood) Negative Specific [place] (test code = Specific [place]) 1.025 Ketone (test code = Ketone) Negative Bilirubin (test code = Bilirubin) Negative Glucose (test code = Glucose) Negative Appearance (test code = Appearance) Clear Color (test code = Color) Yellow [facility],urine pres id [id number] 08:42:00 Test Item Value Reference Range Interpretation Comments culture,urine (test scant skin christina code = culture,urine) present. pathogen not present at 2 days. [facility]/NG/TV + reflex HR [id number] 00:00:00 Test Item Value Reference Range Interpretation Comments TP reflex HPV ASCUS,CT/NG/TV (test normal code = TP reflex HPV ASCUS,CT/NG/TV) CT/NG (test code = CT/NG) normal trichomonas vaginalis addon - swab normal (test code = trichomonas vaginalis addon - swab) [facility] pres id [id number] 09:20:00 Test Item Value Reference Range Interpretation Comments culture,urine (test no growth after 1 day code = culture,urine) [facility] virus surface Ag [Presence] in Serum 2022-05-27 08:15:00 Test Item Value Reference Range Interpretation Comments .hepatitis B surface antigen (test negative negative code = .hepatitis B surface antigen) [facility] Ab [Presence] in Serum by [id number] 13:50:00 Test Item Value Reference Range Interpretation Comments RPR (test code = RPR) nonreactive nonreactive [facility]+2 Ab [Presence] in [id number] 12:43:00 Test Item Value Reference Range Interpretation Comments HIV P24 Ag (test code = HIV P24 non-reactive nonreactive Ag) HIV-1/2 Ab (test code = HIV-1/2 non-reactive nonreactive Ab) [facility] ([facility]-house)2022-05-26 12:43:00 Test Item Value Reference Range Interpretation Comments HIV P24 Ag (test code = HIV P24 non-reactive nonreactive Ag) HIV-1/2 Ab (test code = HIV-1/2 non-reactive nonreactive Ab) [facility] virus Ab [Titer] in [id number] 12:21:00 Test Item Value Reference Range Interpretation Comments rubella IgG (test code = rubella 7.49 IU/mL IgG) [facility] HospitalDrugs identified in Urine by Screen [id number] 11:55:00 Test Item Value Reference Range Interpretation Comments amphetamines screen urine (test code negative negative = amphetamines screen urine) barbiturates, urine quant. (test negative negative code = barbiturates, urine quant.) benzodiazepines screen urine (test negative negative code = benzodiazepines screen urine) cannabinoids (test code = negative negative cannabinoids) cocaine (test code = cocaine) negative negative opiates (test code = opiates) negative negative phencyclidine (test code = negative negative phencyclidine) methadone (test code = methadone) negative negative propoxyphene (test code = negative negative propoxyphene) oxycodone (test code = oxycodone) negative negative drug screen note (test code = drug . screen note) [place] [address] panel drug [id number] 11:41:00 Test Item Value Reference Range Interpretation Comments drug screen note (test code = drug . screen note) [facility] pres id [id number] 11:41:00 Test Item Value Reference Range Interpretation Comments culture,urine (test specimen has been code = culture,urine) received in lab and IS in progress. [place] [address] panel drug [id number] 11:41:00 Test Item Value Reference Range Interpretation Comments drug screen note (test code = drug . screen note) [facility] Hospitalcuure,urine pres id [id number] 11:41:00 Test Item Value Reference Range Interpretation Comments culture,urine (test specimen has been code = culture,urine) received in lab and IS in progress. [facility] W Auto Differential panel - [id number] 11:40:00 Test Item Value Reference Range Interpretation Comments white blood count (test code = 8.7 K/uL 4.0-11.5 white blood count) red blood count (test code = red 4.47 M/uL 3.80-5.20 blood count) hemoglobin (test code = 12.8 g/dL 10.5-15.7 hemoglobin) hematocrit (test code = 40.2 % 34.0-50.0 hematocrit) mean corpuscular volume (test code 89.9 fL 86.0-100.0 = mean corpuscular volume) mean corpuscular hemoglobin (test 28.6 pg 26.2-33.4 code = mean corpuscular hemoglobin) mean corpuscular HGB conc (test 31.8 g/dL 30.0-34.0 code = mean corpuscular HGB conc) red cell distribution width (test 12.1 % 12.0-15.5 code = red cell distribution width) platelet count (test code = 323 K/uL 165-450 platelet count) mean platelet volume (test code = 8.6 fL 9.4-12.6 L mean platelet volume) neutrophils % (test code = 68.0 % 44.4-80.1 neutrophils %) Ig% (test code = Ig%) 0.5 % 0.0-0.4 H lymphocyte% (test code = 21.6 % 10.0-50.0 lymphocyte%) mono % (test code = mono %) 6.9 % 3.6-12.0 eos % (test code = eos %) 2.5 % 0.0-5.4 basophil % (test code = basophil 0.5 % 0.1-1.2 %) absolute neutrophil count (test 5.90 K/uL 1.56-6.13 code = absolute neutrophil count) Ig# (test code = Ig#) 0.04 K/uL 0.00-0.03 H lymph # (test code = lymph #) 1.87 K/uL 1.18-3.74 mono # (test code = mono #) 0.60 K/uL 0.24-0.86 eos # (test code = eos #) 0.22 K/uL 0.04-0.36 basophil # (test code = basophil 0.04 K/uL 0.01-0.08 #) NRBC% (test code = NRBC%) 0 /100 WBC 0-0.2 NRBC# (test code = NRBC#) 0 K/uL [facility] HospitalUrinalysis macro (dipstick) panel - [id number] 09:33:13 Test Item Value Reference Range Interpretation Comments Leukocytes (test code = Small Leukocytes) Nitrite (test code = negative Nitrite) Urobilinogen (test code = .2 Urobilinogen) Protein (test code = Negative Protein) pH (test code = pH) 6.0 Blood (test code = Blood) Non-Hemolyzed: Trace Specific [place] (test 1.025 code = Specific [place]) Ketone (test code = Negative Ketone) Bilirubin (test code = Negative Bilirubin) Glucose (test code = Negative Glucose) Appearance (test code = Clear Appearance) Color (test code = Color) Yellow [facility] HospitalUrinalysis macro (dipstick) panel - [id number] 09:33:13 Test Item Value Reference Range Interpretation Comments Leukocytes (test code = Small Leukocytes) Nitrite (test code = negative Nitrite) Urobilinogen (test code = .2 Urobilinogen) Protein (test code = Negative Protein) pH (test code = pH) 6.0 Blood (test code = Blood) Non-Hemolyzed: Trace Specific [place] (test 1.025 code = Specific [place]) Ketone (test code = Negative Ketone) Bilirubin (test code = Negative Bilirubin) Glucose (test code = Negative Glucose) Appearance (test code = Clear Appearance) Color (test code = Color) Yellow [facility] Hospitalpregnancy test, [id number] 09:32:49 Test Item Value Reference Range Interpretation Comments Test (test code = positive Test) [facility] test, [id number] 09:32:49 Test Item Value Reference Range Interpretation Comments Test (test code = positive Test) [facility]
[2022-06-30 23:02] LABS: Urine Blood 1+ (Negative); Urine Glucose Negative (Negative); Urine Protein Trace (Negative); Urine Specific Gravity >=1.030 (1.005-1.030); Urine pH 5.5 (5.0-7.0)
[2022-06-30] MEDS ORDERED: NA CHLORIDE 0.9% 1,000 ML ONE (23:06)
[2022-06-30 23:56] LABS: SARS-COV-2 RT PCR POSITIVE (NEGATIVE)
[2022-06-30 23:59] LABS: Potassium 3.1 mmol/L (3.5-5.1)
[2022-07-01 00:01] LABS: Absolute Lymphocytes (CBC) 0.3 K/uL (0.7-4.9); Hematocrit 34.9 % (36.0-45.0); Lymphocytes % 5.6 % (15.3-44.8); MCV 87.9 fL (80-100); RBC Red Blood Cell Count 3.97 M/uL (3.86-4.86)
--- NOTE | 2022-07-01 00:20 | EDPHYS ---
Physician Documentation [facility] Name: Shannon Mcduffie Age: 22 yrs Sex: Female : 2000 Arrival Date: 06/30/2022 Time: 22:40 Bed 13 Private MD: ED Physician German Jolley HPI: 07/01 00:05 This 22 yrs old Female presents to ER via Ambulatory with complaints of [facility] Abdominal Cramping, Hip Pain, Vomiting, Fever. 00:05 The patient presents to the emergency department with malaise. The estimated [facility] gestational age is 133 weeks. course: care: private OB physician, Dr. varela. Associated signs and symptoms: The patient has no apparent associated signs or symptoms. The patient has not experienced similar symptoms in the past. 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 - Social history:: Smoking status: Patient denies any tobacco usage or history of. - Family history:: not pertinent. ROS: 07/01 00:05 Constitutional: Negative for fever, chills, and weight loss, Eyes: Negative for injury, juan pain, redness, and discharge, ENT: Negative for injury, pain, and discharge, Neck: Negative for injury, pain, and swelling, Cardiovascular: Negative for chest pain, palpitations, and edema, Respiratory: Negative for shortness of breath, cough, wheezing, and pleuritic chest pain, Abdomen/GI: Negative for abdominal pain, nausea, vomiting, diarrhea, and constipation, Back: Negative for injury and pain, : Negative for injury, bleeding, discharge, and swelling, Skin: Negative for injury, rash, and discoloration, Neuro: Negative for headache, weakness, numbness, tingling, and seizure, Psych: Negative for depression, anxiety, suicide ideation, homicidal ideation, and hallucinations, Allergy/Immunology: Negative for hives, rash, and allergies, Endocrine: Negative for neck swelling, polydipsia, polyuria, polyphagia, and marked weight changes, Hematologic/Lymphatic: Negative for swollen nodes, abnormal bleeding, and unusual bruising. MS/extremity: Positive for of the left hip and right hip. Exam: 00:05 Constitutional: This is a well developed, well nourished patient who is awake, alert, juan and in no acute distress. Head/Face: Normocephalic, atraumatic. Eyes: Pupils equal round and reactive to light, extra-ocular motions intact. Lids and lashes normal. Conjunctiva and sclera are non-icteric and not injected. Cornea within normal limits. Periorbital areas with no swelling, redness, or edema. ENT: Nares patent. No nasal discharge, no septal abnormalities noted. Tympanic membranes are normal and external auditory canals are clear. Oropharynx with no redness, swelling, or masses, exudates, or evidence of obstruction, uvula midline. Mucous membranes moist. Neck: Trachea midline, no thyromegaly or masses palpated, and no cervical lymphadenopathy. Supple, full range of motion without nuchal rigidity, or vertebral point tenderness. No Meningismus. Chest/axilla: Normal chest wall appearance and motion. Nontender with no deformity. No lesions are appreciated. Cardiovascular: Regular rate and rhythm with a normal S1 and S2. No gallops, murmurs, or rubs. Normal PMI, no JVD. No pulse deficits. Respiratory: Lungs have equal breath sounds bilaterally, clear to auscultation and percussion. No rales, rhonchi or wheezes noted. No increased work of breathing, no retractions or nasal flaring. Back: No spinal tenderness. No costovertebral tenderness. Full range of motion. Female : Normal external genitalia. Skin: Warm, dry with normal turgor. Normal color with no rashes, no lesions, and no evidence of cellulitis. MS/ Extremity: Pulses equal, no cyanosis. Neurovascular intact. Full, normal range of motion. Neuro: Awake and alert, GCS 15, oriented to person, place, time, and situation. Cranial nerves II-XII grossly intact. Motor strength 5/5 in all extremities. Sensory grossly intact. Cerebellar exam normal. Normal gait. Psych: Awake, alert, with orientation to person, place and time. Behavior, mood, and affect are within normal limits. 00:05 Abdomen/GI: Inspection: gravid appearance, is noted. Vital Signs: 06/30 22:41 BP 114 / 64; Pulse 104; Resp 16; Temp 98.6(O); Pulse Ox 99% ; Weight 68.04 kg; Height 5 kd3 ft. (152.40 cm); Pain 6/10; 07/01 00:15 BP 108 / 72; Pulse 114; Resp 16; Temp 99.1(O); Pulse Ox 100% on R/A; jb4 06/30 22:41 Body Mass Index 29.29 (68.04 kg, 152.40 cm) kd3 MDM: 06/30 22:51 Patient medically screened. juan 23:54 Patient medically screened. [facility] 07/01 00:13 Differential diagnosis: flu/covid. Data reviewed: vital signs, nurses notes, lab test juan result(s), radiologic studies, ultrasound. Consideration of Admission/Observation Patient was admitted/placed on observation. Escalation of care including admission/observation considered. I considered the following discharge prescriptions or medication management in the emergency department Medications were administered in the Emergency Department. See MAR. Test considered but Not performed: X-ray: cxr. Care significantly affected by the following chronic conditions: asthma. 06/30 22:54 Order name: Abo/rh Typing; Complete Time: 00:20 [facility] 06/30 22:54 Order name: Basic Metabolic Panel; Complete Time: 00:20 [facility] 06/30 22:54 Order name: CBC with Diff; Complete Time: 00:20 [facility] 06/30 22:54 Order name: Urine Culture [facility] 06/30 22:54 Order name: Blood Culture Adult (2) [facility] 06/30 22:57 Order name: Lactate w/ 2H reflex if indic.; Complete Time: 00:20 [facility] 06/30 22:54 Order name: IV Saline Lock; Complete Time: 23:23 [facility] 06/30 22:54 Order name: US Rp Exam Complete 06/30 22:54 Order name: US OB Limited [facility] 06/30 22:57 Order name: COVID-19/FLU A+B; Complete Time: 23:59 juan 06/30 23:02 Order name: Urine Dipstick-Ancillary; Complete Time: 23:59 EDMS 06/30 22:54 Order name: Labs collected and sent; Complete Time: 23:23 [facility] 06/30 22:54 Order name: NPO; Complete Time: 22:57 [facility] 06/30 22:54 Order name: Urine Dipstick-Ancillary (obtain specimen); Complete Time: 22:57 [facility] Administered Medications: 06/30 23:46 Drug: NS 0.9% 1000 ml Route: IV; Rate: 1 bolus; Site: left antecubital; jb4 07/01 00:41 Drug: Potassium Effervescent Tablet 50 mEq Route: PO; jb4 Disposition Summary: 07/01/22 00:19 Discharge Ordered Location: Home [facility] Problem: [facility] Symptoms: have improved juan Condition: Stable [facility] Diagnosis - 13 weeks gestation of juan - Coronavirus infection, unspecified juan - SARS-associated coronavirus as the cause of diseases classified elsewhere juan - Hypokalemia juan Followup: [facility] - With: Private Physician - When: 2 - 3 days - Reason: Recheck today's complaints, Continuance of care, Re-evaluation by your physician Discharge Instructions: - Discharge Summary Sheet [facility] - Potassium Content of Foods juan - Care juan - Upper Respiratory Infection, Adult juan - COVID-19 [facility] - 10 Things You Can Do to Manage Your COVID-19 Symptoms at Home - [facility] - COVID-19: Quarantine vs. Isolation - [facility] - Prevent the Spread of COVID-19 if You Are Sick - [facility] Forms: - Medication Reconciliation Form [facility] - Thank You Letter juan - Antibiotic Education juan - Prescription Opioid Use [facility] Prescriptions: - budesonide 180 mcg/actuation Inhalation aerosol powdr breath activated - inhale 2 puff by INHALATION route 2 times per day; 1 Pump; Refills: 0, Product juan Selection Permitted - Zithromax Z-Mikie 250 mg Oral Tablet - take 1 tablet by ORAL route as directed for 5 days Day 1 - take two (2) tablets [facility] one time. Day 2, 3, 4 , 5 take one (1) tablet once daily.; 6 tablet; Refills: 0, Product Selection Permitted Signatures: Dispatcher [employer] German Briceño MD MD cha Bryson, James, RN RN jb4 Maryan Holland RN RN kd3
--- NOTE | 2022-07-01 00:20 | ER ---
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 My hips also hurt that is dull and achy. the cramping and pain started around 4:30 this afternoon and I started vomiting this morning around 6:30. I am worried about pre term labor. Chief complaint:. Coronavirus screen: Vaccine status:. Coronavirus screen: Vaccine status: Patient reports being unvaccinated. Ebola Screen: No symptoms or risks identified at this time. Initial Sepsis Screen: Does the patient meet any 2 criteria? No. Patient's initial sepsis screen is negative. Does the patient have a suspected source of infection? No. Patient's initial sepsis screen is negative. Risk Assessment: Do you want to hurt yourself or someone else? Patient reports no desire to harm self or others. Onset of symptoms was June 30, 2022. 22:41 Method Of Arrival: Ambulatory kd3 22:41 Acuity: CLAIRE 3 kd3 Triage Assessment: 22:50 General: Appears in no apparent distress. Behavior is calm, cooperative. Pain: kd3 Complains of pain in left lower quadrant. Neuro: Level of Consciousness is awake, alert, obeys commands, Oriented to person, place, time, situation. Respiratory: Airway is patent Trachea midline Respiratory effort is even, unlabored, Respiratory pattern is regular, symmetrical. GI: Reports lower abdominal pain, nausea, vomiting. 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 - Social history:: Smoking status: Patient denies any tobacco usage or history of. - Family history:: not pertinent. Screenin/19 00:52 [facility] ED Fall Risk Assessment (Adult) History of falling in the last 3 months, jb4 including since admission No falls in past 3 months (0 pts) Confusion or Disorientation No (0 pts) Intoxicated or Sedated No (0 pts) Impaired Gait No (0 pts) Mobility Assist Device Used No (0 pt) Altered Elimination No (0 pt) Score/Fall Risk Level 0 - 2 = Low Risk Oriented to surroundings, Maintained a safe environment. Abuse screen: Denies threats or abuse. Nutritional screening: No deficits noted. Tuberculosis screening: No symptoms or risk factors identified. Assessment: 06/30 23:00 Reassessment: see triage note. jb4 07/01 00:15 Reassessment: Patient appears in no apparent distress at this time. Patient and/or jb4 family updated on plan of care and expected duration. Pain level reassessed. Patient is alert, oriented x 3, equal unlabored respirations, skin warm/dry/pink. 00:52 Reassessment: Patient appears in no apparent distress at this time. Patient and/or jb4 family updated on plan of care and expected duration. Pain level reassessed. Patient is alert, oriented x 3, equal unlabored respirations, skin warm/dry/pink. Vital Signs: 06/30 22:41 BP 114 / 64; Pulse 104; Resp 16; Temp 98.6(O); Pulse Ox 99% ; Weight 68.04 kg; Height 5 kd3 ft. (152.40 cm); Pain 6/10; 07/01 00:15 BP 108 / 72; Pulse 114; Resp 16; Temp 99.1(O); Pulse Ox 100% on R/A; jb4 06/30 22:41 Body Mass Index 29.29 (68.04 kg, 152.40 cm) kd3 ED Course: 06/30 22:40 Patient arrived in ED. ja2 22:50 Triage completed. kd3 22:50 German Jolley MD is Attending Physician. [facility] 22:50 Arm band placed on right wrist. kd3 22:56 Ramón Carter, RN is Primary Nurse. jb4 23:23 Inserted saline lock: 20 gauge in left antecubital area, using aseptic technique. Blood ds4 collected. 23:51 US Rp Exam Complete In Process Unspecified. EDMS 23:51 US OB Limited In Process Unspecified. EDMS 07/01 00:52 Patient has correct armband on for positive identification. Bed in low position. Call jb4 light in reach. Side rails up X 1. 00:52 No provider procedures requiring assistance completed. IV discontinued, intact, jb4 bleeding controlled, No redness/swelling at site. Pressure dressing applied. Administered Medications: 06/30 23:46 Drug: NS 0.9% 1000 ml Route: IV; Rate: 1 bolus; Site: left antecubital; jb4 07/01 00:41 Drug: Potassium Effervescent Tablet 50 mEq Route: PO; jb4 Medication: 00:52 VIS not applicable for this client. jb4 Outcome: 00:19 Discharge ordered by . [facility] 00:52 Discharged to home ambulatory. jb4 00:52 Condition: stable 00:52 Discharge instructions given to patient, Instructed on discharge instructions, follow up and referral plans. medication usage, Demonstrated understanding of instructions, follow-up care, medications, Prescriptions given X 3. 00:53 Patient left the ED. jb4 Signatures: Dispatcher [employer] [facility] German Jolley MD MD cha Swanson, Donovan ds4 Ramón Carter, RN RN jb4 Tawana Allen Kyli RN RN kd3
[2022-07-01] MEDS ORDERED: POTASSIUM 25 MEQ EFFERV TAB ONE (00:31)
[2022-07-01 01:49] VITALS: BP 108/72; TEMP 99.1; O2SAT 100
--- NOTE | 2022-07-01 10:02 | RAD REPORT ---
EXAM DESCRIPTION: US - OB Limited - 06/30/2022 11:49 pm CLINICAL HISTORY: 22 years Female ABD CRAMPING, COMPARISON: None. TECHNIQUE: Real-time, knox scale, and Doppler transabdominal sonographic imaging was performed to ev aluate the gravid uterus. Transvaginal images were acquired to better evaluate the fetus. FINDINGS: There is a single live intrauterine gestation in breech presentation with a heart ra te of 157 bpm. The placenta is fundal and anterior in position without placenta previa or sub-placent al collection. The cervix is closed, measuring 4.0 cm. Various biometric measurements reveal an estim ated gestational age of 13 weeks. There is a subjectively normal amount of amniotic fluid. The maternal left ovary is normal. The right ovary is not seen. IMPRESSION: Normal-appearing single live intrauterine gestation of approximately 13 weeks. 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 The interpreting radiologist is fully responsible for the content of the report.
--- NOTE | 2022-07-01 10:12 | RAD REPORT ---
EXAM DESCRIPTION: US - Renal Ultrasound-Complete - 06/30/2022 11:49 pm CLINICAL HISTORY: 22 years Female PAIN COMPARISON: No prior exams provided for comparison. TECHNIQUE: Real-time and knox scale sonographic imaging of the kidneys and urinary bladder was perfo rmed. FINDINGS: The right kidney measures 10.5 x 4.8 x 4.7 cm without visualized focal renal lesion, shado wing calculus, hydronephrosis, or perinephric fluid collection. The left kidney measures 10.5 x 5.4 x 4.3 cm without visualized focal renal lesion, shadowing calculu s, hydronephrosis, or perinephric fluid collection. The urinary bladder appears normal. Gravid uterus noted. IMPRESSION: Normal renal ultrasound. No hydronephrosis. 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 The interpreting radiologist is fully responsible for the content of the report.
== END 2022-07-01 00:53 | disposition home or self-care (01) ==
LOC: ER 22:39
DX: O98.511 Other viral diseases complicating pregnancy, first trimester (principal); U07.1 COVID-19; R50.9 Fever, unspecified; J45.909 Unspecified asthma, uncomplicated; F41.9 Anxiety disorder, unspecified; F32.A Depression, unspecified
CPT/HCPCS: 0240U; 36415; 76770; 76815; 80048; 81003; 83605; 85025; 86900; 86901; 87040; 87086; 87088; J7030

== ENCOUNTER 2024-07-24 10:47 | Emergency (ER) | payer OTHER ==
--- OUTSIDE RECORDS SUMMARY | 2024-07-24 10:53 | XMS REPORT | Continuity of Care Document ---
Author Name Unknown Address [address] [facility] [address] [place] [address] [facility] Address [address] [facility] [address] [place] [address] Care Team Providers Care Bean Weigher Name Role Phone Wally Alex M Primary Care Physician [phone] Alex Lo Attending Clinician Unavailable Val_Rajeev Attending Clinician Unavailable GC_GCBZW_Cresencioa_S Attending Clinician Unavaila ROSALBA Cardenas Attending Clinician Unavaila RA Wayne Attending Clinician UnavailDIPTI Faria Attending Clinician Unavailable Pippa Attending Clinician Unavailable Doctor Unassigned, Landa Attending Clinician U navailable STEVO_ANNELISE Attending Clinician Unavailable ROQUE JERNIGAN Attending Clinician Unavail able ROQUE JERNIGAN Attending Clinician Unavail able Roque Jernigan MD Attending Clinician QUINTIN DAVILA Attending Clinician Unavailable MARYAM ARNOLD Attending Clinician Unavailable JOSE E SIBLEY Attending Clinician Unavailable ANNELISE WHITESIDE Attending Clinician Unavailable White_M Admitting Clinician Unavailable GC_GCBZW_Kadiyala_S Admitting Clinician Unavaila ROSALBA Cardenas Admitting Clinician Unavaila edel Arnold Admitting Clinician Unavailable STEVO_ANNELISE Admitting Clinician Unavailable RA BARRIOS Admitting Clinician Unavailabl e Payers Payer Name Policy Type Policy Number Effective Date Expirati on Date Source [facility] (MEDICAID HMO) [id number] 2016 00:00:00 [facility] [id number] [employer] [id number] ALL[employer] [id number] [facility] Problems Condition Name Condition Details Condition Category Status Onset Date Resolution Date Last Treatment Date Treating Clinician Comments Source Mixed anxiety and depressive disorder Mixed Anxiety and Depressive Disorder Problem Active 2021-06 00:00: 00 [facility] History of pre-eclamp renetta History of Pre-eclamp renetta Problem Active 2021-06 00:00: 00 [facility] Rubella non-immune Rubella Non-immune Problem Active 2021-06 00:00: 00 [facility] Removal of intrauteri ne device Removal of Intrauteri ne Device Problem Active 12-29 00:00: 00 [facility] Menorrhagi a Menorrhagi a Problem Active 11-17 00:00: 00 [facility] Uses IUD (intrauter ine device) contracept ion Uses IUD (Intrauter ine Device) Contracept ion Problem Active 11-17 00:00: 00 [facility] Insertion of intrauteri ne contracept thalia device Insertion of Intrauteri ne Contracept thalia Device Problem Active 08 00:00: 00 [facility] Sore throat Sore Throat Problem Active 08-05 00:00: 00 [facility] Acute cystitis Acute Cystitis Problem Active 08-05 00:00: 00 [facility] Infection of section AND/OR perineal wound Infection of Section AND/OR Perineal Wound Problem Active 08-05 00:00: 00 [facility] Leukocytes in urine Leukocytes in Urine Problem Active 07-28 00:00: 00 [facility] Candidiasi s of vagina Candidiasi s of Vagina Problem Active 07-28 00:00: 00 [facility] depression Depression Problem Active 07-21 00:00: 00 [facility] Episiotomy infection Episiotomy Infection Problem Active 07-21 00:00: 00 [facility] care Care Problem Active 07-21 00:00: 00 [facility] Mild pre-eclamp renetta Mild Pre-eclamp renetta Problem Active 06-23 00:00: 00 [facility] Back pain complicati ng Back Pain Complicati ng Problem Active 2016-06 00:00: 00 [facility] screening Screening Problem Active 2016-06 00:00: 00 [facility] Gastroesop hageal reflux disease without esophagiti s Gastroesop hageal Reflux Disease without Esophagiti s Problem Active 2016-06 00:00: 00 [facility] Asthma Asthma Problem Active 01-31 00:00: 00 [facility] RhD negative RhD Negative Problem Active 01-31 00:00: 00 [facility] [id number] PTSD (post-trau matic stress disorder) Problem [facility] [id number] Moderate persistent asthma without complicati on Problem [facility] Metallic taste Metallic taste Problem [facility] [id number] Mood disorder Problem [facility] [id number] Bipolar [address] [facility] [id number] Unable to concentrat e Problem [facility] [id number] Migraine without aura and without status migrainosu s, not intractabl e Problem [facility] [id number] Other chronic pain Problem [facility] [id number] Memory change Problem [facility] No known active problems No known active problems Disease [facility] Social History Social Habit Start Date Stop Date Quantity Comments Source History of Tobacco Use [facility] Sex Assigned At [facility] Exposure to SARS-CoV-2 (event) 2021-12-05 00:00:00 2021-12-15 08:32:00 Not sure [facility] Smoking Status Start Date Stop Date Source Tobacco smoking consumption unknown [facility] Never Smoker [facility] Medications Ordered Medication Name Filled Medication Name Start Date Stop Date Current Medication? Ordering Clinician Indication Dosage Frequency Signature (SIG) Comments Components Source Albuterol Sulfate HFA 108 (90 Base) MCG/ACT Albuterol Sulfate HFA 108 (90 Base) MCG/ACT 2- 00:00: 00 No 2{puff_ as_need ed} QID Albuterol Sulfate HFA 108 (90 Base) MCG/ACT rho,D, immune globulin 1,500 unit (300 mcg) syringe 12-11 09:23: 31 Yes rho(D) immune globulin 1,500 unit (300 mcg) intramuscu lar syringe Inject 300 micrograms by intramuscu lar route. [facility] cephALEXin 500 mg capsule 12-11 09:23: 31 Yes cephalexin 500 mg capsule [facility] citalopram 20 mg tablet 12-11 09:23: 31 Yes citalopram 20 mg tablet [facility] Ferrous Gluconate 240 mg (27 mg iron) tablet 12-11 09:23: 31 Yes ferrous gluconate 240 mg (27 mg iron) tablet Take 1 tablet every day by oral route. [facility] ibuprofen 800 mg tablet 12-11 09:23: 31 Yes ibuprofen 800 mg tablet Take 1 tablet 3 times a day by oral route as needed. [facility] metoclopram jim HCl 10 mg tablet 12-11 09:23: 31 Yes metoclopra mide 10 mg tablet [facility] omeprazole 20 mg capsule 12-11 09:23: 31 Yes omeprazole 20 mg capsule,de layed release [facility] escitalopra m oxalate 10 mg tablet 11-30 00:00: 00 Yes [facility] Atomoxetine HCl 40 MG Atomoxetine HCl 40 MG No 1{joselin le_in_t he_ana m ing} QD Atomoxetin e HCl 40 MG albuterol sulfate HFA 90 mcg/actuati on aerosol inhaler albuterol sulfate HFA 90 mcg/actuati on aerosol inhaler No albuterol sulfate HFA 90 mcg/actuat ion aerosol inhaler [facility] buspirone 5 mg tablet Take 1 tablet twice a day by oral route. buspirone 5 mg tablet Take 1 tablet twice a day by oral route. No buspirone 5 mg tablet Take 1 tablet twice a day by oral route. [facility] propranolol 20 mg tablet Take 1 tablet twice a day by oral route as directed for 30 days. propranolol 20 mg tablet Take 1 tablet twice a day by oral route as directed for 30 days. No 1 BID propranolo l 20 mg tablet Take 1 tablet twice a day by oral route as directed for 30 days. [facility] Wellbutrin SR 150 mg tablet, 12 hr sustained-r elease Take 1 tablet twice a day by oral route as directed for 30 days. Wellbutrin SR 150 mg tablet, 12 hr sustained-r elease Take 1 tablet twice a day by oral route as directed for 30 days. No 1 BID Wellbutrin SR 150 mg tablet, 12 hr sustained- release Take 1 tablet twice a day by oral route as directed for 30 days. [facility] albuterol sulfate HFA 90 mcg/actuati on aerosol inhaler Inhale 2 puffs every 4 hours by inhalation route as needed. albuterol sulfate HFA 90 mcg/actuati on aerosol inhaler Inhale 2 puffs every 4 hours by inhalation route as needed. No 2puff(s ) Q4H albuterol sulfate HFA 90 mcg/actuat ion aerosol inhaler Inhale 2 puffs every 4 hours by inhalation route as needed. [facility] buspirone 5 mg tablet Take 1 tablet twice a day by oral route. buspirone 5 mg tablet Take 1 tablet twice a day by oral route. No buspirone 5 mg tablet Take 1 tablet twice a day by oral route. [facility] propranolol 20 mg tablet Take 1 tablet twice a day by oral route as directed for 30 days. propranolol 20 mg tablet Take 1 tablet twice a day by oral route as directed for 30 days. No propranolo l 20 mg tablet Take 1 tablet twice a day by oral route as directed for 30 days. [facility] Singulair 10 mg tablet Take 1 tablet every day by oral route as directed for 30 days. Singulair 10 mg tablet Take 1 tablet every day by oral route as directed for 30 days. No 1 Q1D Singulair 10 mg tablet Take 1 tablet every day by oral route as directed for [address] [facility] Symbicort 160 mcg-4.5 mcg/actuati on HFA aerosol inhaler Inhale 2 puffs twice a day by inhalation route as directed. Symbicort 160 mcg-4.5 mcg/actuati on HFA aerosol inhaler Inhale 2 puffs twice a day by inhalation route as directed. No 2puff(s ) BID Symbicort 160 mcg-4.5 mcg/actuat ion HFA aerosol inhaler Inhale 2 puffs twice a day by inhalation route as directed. [facility] Wellbutrin SR 150 mg tablet, 12 hr sustained-r elease Take 1 tablet twice a day by oral route as directed for 30 days. Wellbutrin SR 150 mg tablet, 12 hr sustained-r elease Take 1 tablet twice a day by oral route as directed for 30 days. No 1 BID Wellbutrin SR 150 mg tablet, 12 hr sustained- release Take 1 tablet twice a day by oral route as directed for 30 days. [facility] albuterol sulfate HFA 90 mcg/actuati on aerosol inhaler Inhale 2 puffs every 4 hours by inhalation route as needed. albuterol sulfate HFA 90 mcg/actuati on aerosol inhaler Inhale 2 puffs every 4 hours by inhalation route as needed. No albuterol sulfate HFA 90 mcg/actuat ion aerosol inhaler Inhale 2 puffs every 4 hours by inhalation route as needed. [facility] bupropion HCl SR 150 mg tablet,12 hr sustained-r elease Take 1 tablet twice a day by oral route as directed for 30 days. bupropion HCl SR 150 mg tablet,12 hr sustained-r elease Take 1 tablet twice a day by oral route as directed for 30 days. No bupropion HCl SR 150 mg tablet,12 hr sustained- release Take 1 tablet twice a day by oral route as directed for 30 days. [facility] buspirone 5 mg tablet Take 1 tablet twice a day by oral route. buspirone 5 mg tablet Take 1 tablet twice a day by oral route. No buspirone 5 mg tablet Take 1 tablet twice a day by oral route. [facility] montelukast 10 mg tablet Take 1 tablet every day by oral route as directed for 30 days. montelukast 10 mg tablet Take 1 tablet every day by oral route as directed for 30 days. No montelukas t 10 mg tablet Take 1 tablet every day by oral route as directed for 30 days. [facility] propranolol 20 mg tablet Take 1 tablet twice a day by oral route as directed for 30 days. propranolol 20 mg tablet Take 1 tablet twice a day by oral route as directed for 30 days. No propranolo l 20 mg tablet Take 1 tablet twice a day by oral route as directed for 30 days. [facility] Symbicort 160 mcg-4.5 mcg/actuati on HFA aerosol inhaler Inhale 2 puffs twice a day by inhalation route as directed. Symbicort 160 mcg-4.5 mcg/actuati on HFA aerosol inhaler Inhale 2 puffs twice a day by inhalation route as directed. No Symbicort 160 mcg-4.5 mcg/actuat ion HFA aerosol inhaler Inhale 2 puffs twice a day by inhalation route as directed. [facility] albuterol sulfate HFA 90 mcg/actuati on aerosol inhaler Inhale 2 puffs every 4 hours by inhalation route as needed. albuterol sulfate HFA 90 mcg/actuati on aerosol inhaler Inhale 2 puffs every 4 hours by inhalation route as needed. No albuterol sulfate HFA 90 mcg/actuat ion aerosol inhaler Inhale 2 puffs every 4 hours by inhalation route as needed. [facility] buspirone 5 mg tablet Take 1 tablet twice a day by oral route. buspirone 5 mg tablet Take 1 tablet twice a day by oral route. No buspirone 5 mg tablet Take 1 tablet twice a day by oral route. [facility] montelukast 10 mg tablet Take 1 tablet every day by oral route as directed for 30 days. montelukast 10 mg tablet Take 1 tablet every day by oral route as directed for 30 days. No montelukas t 10 mg tablet Take 1 tablet every day by oral route as directed for 30 days. [facility] propranolol 20 mg tablet Take 1 tablet twice a day by oral route as directed for 30 days. propranolol 20 mg tablet Take 1 tablet twice a day by oral route as directed for 30 days. No propranolo l 20 mg tablet Take 1 tablet twice a day by oral route as directed for [address] [facility] RhoGAM Ultra-Filte red PLUS 1,500 unit (300 mcg) intramuscul ar syringe Inject 1 unit by intramuscul ar route. RhoGAM Ultra-Filte red PLUS 1,500 unit (300 mcg) intramuscul ar syringe Inject 1 unit by intramuscul ar route. No 1unit(s ) RhoGAM Ultra-Filt ered PLUS 1,500 unit (300 mcg) intramuscu lar syringe Inject 1 unit by intramuscu lar route. [facility] Symbicort 160 mcg-4.5 mcg/actuati on HFA aerosol inhaler Inhale 2 puffs twice a day by inhalation route as directed. Symbicort 160 mcg-4.5 mcg/actuati on HFA aerosol inhaler Inhale 2 puffs twice a day by inhalation route as directed. No Symbicort 160 mcg-4.5 mcg/actuat ion HFA aerosol inhaler Inhale 2 puffs twice a day by inhalation route as directed. [facility] Wellbutrin SR 150 mg tablet, 12 hr sustained-r elease Take 1 tablet twice a day by oral route as directed for 30 days. Wellbutrin SR 150 mg tablet, 12 hr sustained-r elease Take 1 tablet twice a day by oral route as directed for 30 days. No 1 BID Wellbutrin SR 150 mg tablet, 12 hr sustained- release Take 1 tablet twice a day by oral route as directed for 30 days. [facility] albuterol sulfate HFA 90 mcg/actuati on aerosol inhaler Inhale 2 puffs every 4 hours by inhalation route as needed. albuterol sulfate HFA 90 mcg/actuati on aerosol inhaler Inhale 2 puffs every 4 hours by inhalation route as needed. No albuterol sulfate HFA 90 mcg/actuat ion aerosol inhaler Inhale 2 puffs every 4 hours by inhalation route as needed. [facility] bupropion HCl SR 150 mg tablet,12 hr sustained-r elease Take 1 tablet twice a day by oral route as directed for 30 days. bupropion HCl SR 150 mg tablet,12 hr sustained-r elease Take 1 tablet twice a day by oral route as directed for 30 days. No bupropion HCl SR 150 mg tablet,12 hr sustained- release Take 1 tablet twice a day by oral route as directed for 30 days. [facility] buspirone 5 mg tablet Take 1 tablet twice a day by oral route. buspirone 5 mg tablet Take 1 tablet twice a day by oral route. No buspirone 5 mg tablet Take 1 tablet twice a day by oral route. [facility] montelukast 10 mg tablet Take 1 tablet every day by oral route as directed for 30 days. montelukast 10 mg tablet Take 1 tablet every day by oral route as directed for 30 days. No montelukas t 10 mg tablet Take 1 tablet every day by oral route as directed for 30 days. [facility] propranolol 20 mg tablet Take 1 tablet twice a day by oral route as directed for 30 days. propranolol 20 mg tablet Take 1 tablet twice a day by oral route as directed for 30 days. No propranolo l 20 mg tablet Take 1 tablet twice a day by oral route as directed for 30 days. [facility] RhoGAM Ultra-Filte red PLUS 1,500 unit (300 mcg) intramuscul ar syringe Inject 1 unit by intramuscul ar route. RhoGAM Ultra-Filte red PLUS 1,500 unit (300 mcg) intramuscul ar syringe Inject 1 unit by intramuscul ar route. No 1unit(s ) RhoGAM Ultra-Filt ered PLUS 1,500 unit (300 mcg) intramuscu lar syringe Inject 1 unit by intramuscu lar route. [facility] Symbicort 160 mcg-4.5 mcg/actuati on HFA aerosol inhaler Inhale 2 puffs twice a day by inhalation route as directed. Symbicort 160 mcg-4.5 mcg/actuati on HFA aerosol inhaler Inhale 2 puffs twice a day by inhalation route as directed. No Symbicort 160 mcg-4.5 mcg/actuat ion HFA aerosol inhaler Inhale 2 puffs twice a day by inhalation route as directed. [facility] albuterol sulfate HFA 90 mcg/actuati on aerosol inhaler Inhale 2 puffs every 4 hours by inhalation route as needed. albuterol sulfate HFA 90 mcg/actuati on aerosol inhaler Inhale 2 puffs every 4 hours by inhalation route as needed. No albuterol sulfate HFA 90 mcg/actuat ion aerosol inhaler Inhale 2 puffs every 4 hours by inhalation route as needed. [facility] buspirone 5 mg tablet Take 1 tablet twice a day by oral route. buspirone 5 mg tablet Take 1 tablet twice a day by oral route. No buspirone 5 mg tablet Take 1 tablet twice a day by oral route. [facility] montelukast 10 mg tablet Take 1 tablet every day by oral route as directed for 30 days. montelukast 10 mg tablet Take 1 tablet every day by oral route as directed for 30 days. No montelukas t 10 mg tablet Take 1 tablet every day by oral route as directed for [address] [facility] omeprazole 40 mg capsule,del ayed release Take 1 capsule every day by oral route as directed for 30 days. omeprazole 40 mg capsule,del ayed release Take 1 capsule every day by oral route as directed for 30 days. No 1capsul e(s) Q1D omeprazole 40 mg capsule,de layed release Take 1 capsule every day by oral route as directed for 30 days. [facility] propranolol 20 mg tablet Take 1 tablet twice a day by oral route as directed for 30 days. propranolol 20 mg tablet Take 1 tablet twice a day by oral route as directed for 30 days. No propranolo l 20 mg tablet Take 1 tablet twice a day by oral route as directed for 30 days. [facility] RhoGAM Ultra-Filte red PLUS 1,500 unit (300 mcg) intramuscul ar syringe Inject 1 unit by intramuscul ar route. RhoGAM Ultra-Filte red PLUS 1,500 unit (300 mcg) intramuscul ar syringe Inject 1 unit by intramuscul ar route. No 1unit(s ) RhoGAM Ultra-Filt ered PLUS 1,500 unit (300 mcg) intramuscu lar syringe Inject 1 unit by intramuscu lar route. [facility] Symbicort 160 mcg-4.5 mcg/actuati on HFA aerosol inhaler Inhale 2 puffs twice a day by inhalation route as directed. Symbicort 160 mcg-4.5 mcg/actuati on HFA aerosol inhaler Inhale 2 puffs twice a day by inhalation route as directed. No Symbicort 160 mcg-4.5 mcg/actuat ion HFA aerosol inhaler Inhale 2 puffs twice a day by inhalation route as directed. [facility] Wellbutrin SR 150 mg tablet, 12 hr sustained-r elease Take 1 tablet twice a day by oral route as directed for 30 days. Wellbutrin SR 150 mg tablet, 12 hr sustained-r elease Take 1 tablet twice a day by oral route as directed for 30 days. No 1 BID Wellbutrin SR 150 mg tablet, 12 hr sustained- release Take 1 tablet twice a day by oral route as directed for 30 days. [facility] albuterol sulfate HFA 90 mcg/actuati on aerosol inhaler albuterol sulfate HFA 90 mcg/actuati on aerosol inhaler No albuterol sulfate HFA 90 mcg/actuat ion aerosol inhaler [facility] buspirone 5 mg tablet Take 1 tablet twice a day by oral route. buspirone 5 mg tablet Take 1 tablet twice a day by oral route. No 1 BID buspirone 5 mg tablet Take 1 tablet twice a day by oral route. [facility] fluticasone 232 mcg-salmete rol 14 mcg/actuati on breath activated powdr fluticasone 232 mcg-salmete rol 14 mcg/actuati on breath activated powdr No fluticason e 232 mcg-salmet maria luisa 14 mcg/actuat ion breath activated powdr [facility] albuterol sulfate HFA 90 mcg/actuati on aerosol inhaler Inhale 2 puffs every 4 hours by inhalation route as needed. albuterol sulfate HFA 90 mcg/actuati on aerosol inhaler Inhale 2 puffs every 4 hours by inhalation route as needed. No albuterol sulfate HFA 90 mcg/actuat ion aerosol inhaler Inhale 2 puffs every 4 hours by inhalation route as needed. [facility] bupropion HCl SR 150 mg tablet,12 hr sustained-r elease Take 1 tablet twice a day by oral route as directed for 30 days. bupropion HCl SR 150 mg tablet,12 hr sustained-r elease Take 1 tablet twice a day by oral route as directed for 30 days. No bupropion HCl SR 150 mg tablet,12 hr sustained- release Take 1 tablet twice a day by oral route as directed for 30 days. [facility] buspirone 5 mg tablet Take 1 tablet twice a day by oral route. buspirone 5 mg tablet Take 1 tablet twice a day by oral route. No buspirone 5 mg tablet Take 1 tablet twice a day by oral route. [facility] montelukast 10 mg tablet Take 1 tablet every day by oral route as directed for 30 days. montelukast 10 mg tablet Take 1 tablet every day by oral route as directed for 30 days. No montelukas t 10 mg tablet Take 1 tablet every day by oral route as directed for 30 days. [facility] omeprazole 40 mg capsule,del ayed release Take 1 capsule every day by oral route as directed for 30 days. omeprazole 40 mg capsule,del ayed release Take 1 capsule every day by oral route as directed for 30 days. No omeprazole 40 mg capsule,de layed release Take 1 capsule every day by oral route as directed for 30 days. [facility] propranolol 20 mg tablet Take 1 tablet twice a day by oral route as directed for 30 days. propranolol 20 mg tablet Take 1 tablet twice a day by oral route as directed for 30 days. No propranolo l 20 mg tablet Take 1 tablet twice a day by oral route as directed for 30 days. [facility] RhoGAM Ultra-Filte red PLUS 1,500 unit (300 mcg) intramuscul ar syringe Inject 1 unit by intramuscul ar route. RhoGAM Ultra-Filte red PLUS 1,500 unit (300 mcg) intramuscul ar syringe Inject 1 unit by intramuscul ar route. No 1unit(s ) RhoGAM Ultra-Filt ered PLUS 1,500 unit (300 mcg) intramuscu lar syringe Inject 1 unit by intramuscu lar route. [facility] Symbicort 160 mcg-4.5 mcg/actuati on HFA aerosol inhaler Symbicort 160 mcg-4.5 mcg/actuati on HFA aerosol inhaler No Symbicort 160 mcg-4.5 mcg/actuat ion HFA aerosol inhaler [facility] Symbicort 160 mcg-4.5 mcg/actuati on HFA aerosol inhaler Inhale 2 puffs twice a day by inhalation route as directed. Symbicort 160 mcg-4.5 mcg/actuati on HFA aerosol inhaler Inhale 2 puffs twice a day by inhalation route as directed. No Symbicort 160 mcg-4.5 mcg/actuat ion HFA aerosol inhaler Inhale 2 puffs twice a day by inhalation route as directed. [facility] Symbicort 80 mcg-4.5 mcg/actuati on HFA aerosol inhaler Symbicort 80 mcg-4.5 mcg/actuati on HFA aerosol inhaler No Symbicort 80 mcg-4.5 mcg/actuat ion HFA aerosol inhaler [facility] albuterol sulfate HFA 90 mcg/actuati on aerosol inhaler Inhale 2 puffs every 4 hours by inhalation route as needed. albuterol sulfate HFA 90 mcg/actuati on aerosol inhaler Inhale 2 puffs every 4 hours by inhalation route as needed. No albuterol sulfate HFA 90 mcg/actuat ion aerosol inhaler Inhale 2 puffs every 4 hours by inhalation route as needed. [facility] bupropion HCl SR 150 mg tablet,12 hr sustained-r elease Take 1 tablet twice a day by oral route as directed for 30 days. bupropion HCl SR 150 mg tablet,12 hr sustained-r elease Take 1 tablet twice a day by oral route as directed for 30 days. No bupropion HCl SR 150 mg tablet,12 hr sustained- release Take 1 tablet twice a day by oral route as directed for 30 days. [facility] buspirone 5 mg tablet Take 1 tablet twice a day by oral route. buspirone 5 mg tablet Take 1 tablet twice a day by oral route. No buspirone 5 mg tablet Take 1 tablet twice a day by oral route. [facility] montelukast 10 mg tablet Take 1 tablet every day by oral route as directed for 30 days. montelukast 10 mg tablet Take 1 tablet every day by oral route as directed for 30 days. No montelukas t 10 mg tablet Take 1 tablet every day by oral route as directed for [address] [facility] omeprazole 40 mg capsule,del ayed release Take 1 capsule every day by oral route as directed for 30 days. omeprazole 40 mg capsule,del ayed release Take 1 capsule every day by oral route as directed for 30 days. No omeprazole 40 mg capsule,de layed release Take 1 capsule every day by oral route as directed for [address] [facility] propranolol 20 mg tablet Take 1 tablet twice a day by oral route as directed for 30 days. propranolol 20 mg tablet Take 1 tablet twice a day by oral route as directed for 30 days. No propranolo l 20 mg tablet Take 1 tablet twice a day by oral route as directed for 30 days. [facility] RhoGAM Ultra-Filte red PLUS 1,500 unit (300 mcg) intramuscul ar syringe Inject 1 unit by intramuscul ar route. RhoGAM Ultra-Filte red PLUS 1,500 unit (300 mcg) intramuscul ar syringe Inject 1 unit by intramuscul ar route. No 1unit(s ) RhoGAM Ultra-Filt ered PLUS 1,500 unit (300 mcg) intramuscu lar syringe Inject 1 unit by intramuscu lar route. [facility] Symbicort 160 mcg-4.5 mcg/actuati on HFA aerosol inhaler Inhale 2 puffs twice a day by inhalation route as directed. Symbicort 160 mcg-4.5 mcg/actuati on HFA aerosol inhaler Inhale 2 puffs twice a day by inhalation route as directed. No Symbicort 160 mcg-4.5 mcg/actuat ion HFA aerosol inhaler Inhale 2 puffs twice a day by inhalation route as directed. [facility] acetaminoph en 300 mg-codeine 30 mg tablet PLEASE SEE ATTACHED FOR DETAILED DIRECTIONS acetaminoph en 300 mg-codeine 30 mg tablet PLEASE SEE ATTACHED FOR DETAILED DIRECTIONS No acetaminop hen 300 mg-codeine 30 mg tablet PLEASE SEE ATTACHED FOR DETAILED DIRECTIONS [facility] montelukast 10 mg tablet Take 1 tablet every day by oral route as directed for 30 days. montelukast 10 mg tablet Take 1 tablet every day by oral route as directed for 30 days. No montelukas t 10 mg tablet Take 1 tablet every day by oral route as directed for 30 days. [facility] propranolol 20 mg tablet Take 1 tablet twice a day by oral route as directed for 30 days. propranolol 20 mg tablet Take 1 tablet twice a day by oral route as directed for 30 days. No propranolo l 20 mg tablet Take 1 tablet twice a day by oral route as directed for [address] [facility] spironolact one 50 mg tablet Take 1 tablet every day by oral route for 30 days. spironolact one 50 mg tablet Take 1 tablet every day by oral route for 30 days. No 1 Q1D spironolac tone 50 mg tablet Take 1 tablet every day by oral route for 30 days. [facility] Tri-Sprinte c (28) 0.18 mg(7)/0.215 mg(7)/0.25 mg(7)-35 mcg tablet Take 1 tablet every day by oral route. Tri-Sprinte c (28) 0.18 mg(7)/0.215 mg(7)/0.25 mg(7)-35 mcg tablet Take 1 tablet every day by oral route. No 1 Q1D Tri-Sprint ec (28) 0.18 mg(7)/0.21 5 mg(7)/0.25 mg(7)-35 mcg tablet Take 1 tablet every day by oral route. [facility] acetaminoph en 300 mg-codeine 30 mg tablet PLEASE SEE ATTACHED FOR DETAILED DIRECTIONS acetaminoph en 300 mg-codeine 30 mg tablet PLEASE SEE ATTACHED FOR DETAILED DIRECTIONS No acetaminop hen 300 mg-codeine 30 mg tablet PLEASE SEE ATTACHED FOR DETAILED DIRECTIONS [facility] montelukast 10 mg tablet Take 1 tablet every day by oral route as directed for 30 days. montelukast 10 mg tablet Take 1 tablet every day by oral route as directed for 30 days. No montelukas t 10 mg tablet Take 1 tablet every day by oral route as directed for 30 days. [facility] norgestimat e-ethinyl estradiol 0.18 mg/0.215mg/ 0.25mg-35 mcg(28)tabl et TAKE 1 TABLET BY MOUTH EVERY DAY norgestimat e-ethinyl estradiol 0.18 mg/0.215mg/ 0.25mg-35 mcg(28)tabl et TAKE 1 TABLET BY MOUTH EVERY DAY No norgestima te-ethinyl estradiol 0.18 mg/0.215mg /0.25mg-35 mcg(28)tab let TAKE 1 TABLET BY MOUTH EVERY DAY [facility] propranolol 20 mg tablet Take 1 tablet twice a day by oral route as directed for 30 days. propranolol 20 mg tablet Take 1 tablet twice a day by oral route as directed for 30 days. No propranolo l 20 mg tablet Take 1 tablet twice a day by oral route as directed for 30 days. [facility] spironolact one 50 mg tablet TAKE 1 TABLET BY MOUTH EVERY DAY spironolact one 50 mg tablet TAKE 1 TABLET BY MOUTH EVERY DAY No spironolac tone 50 mg tablet TAKE 1 TABLET BY MOUTH EVERY DAY [facility] Symbicort 160 mcg-4.5 mcg/actuati on HFA aerosol inhaler Symbicort 160 mcg-4.5 mcg/actuati on HFA aerosol inhaler No Symbicort 160 mcg-4.5 mcg/actuat ion HFA aerosol inhaler [facility] acetaminoph en 300 mg-codeine 30 mg tablet PLEASE SEE ATTACHED FOR DETAILED DIRECTIONS acetaminoph en 300 mg-codeine 30 mg tablet PLEASE SEE ATTACHED FOR DETAILED DIRECTIONS No acetaminop hen 300 mg-codeine 30 mg tablet PLEASE SEE ATTACHED FOR DETAILED DIRECTIONS [facility] montelukast 10 mg tablet Take 1 tablet every day by oral route as directed for 30 days. montelukast 10 mg tablet Take 1 tablet every day by oral route as directed for 30 days. No montelukas t 10 mg tablet Take 1 tablet every day by oral route as directed for 30 days. [facility] phentermine 37.5 mg tablet Take 1 tablet every day by oral route for 30 days. phentermine 37.5 mg tablet Take 1 tablet every day by oral route for 30 days. No 1 Q1D phentermin e 37.5 mg tablet Take 1 tablet every day by oral route for 30 days. [facility] propranolol 20 mg tablet Take 1 tablet twice a day by oral route as directed for 30 days. propranolol 20 mg tablet Take 1 tablet twice a day by oral route as directed for 30 days. No propranolo l 20 mg tablet Take 1 tablet twice a day by oral route as directed for 30 days. [facility] spironolact one 50 mg tablet TAKE 1 TABLET BY MOUTH EVERY DAY spironolact one 50 mg tablet TAKE 1 TABLET BY MOUTH EVERY DAY No spironolac tone 50 mg tablet TAKE 1 TABLET BY MOUTH EVERY DAY [facility] Symbicort 160 mcg-4.5 mcg/actuati on HFA aerosol inhaler INHALE 2 PUFFS BY MOUTH TWICE A DAY Symbicort 160 mcg-4.5 mcg/actuati on HFA aerosol inhaler INHALE 2 PUFFS BY MOUTH TWICE A DAY No Symbicort 160 mcg-4.5 mcg/actuat ion HFA aerosol inhaler INHALE 2 PUFFS BY MOUTH TWICE A DAY [facility] Tri-Sprinte c (28) 0.18 mg(7)/0.215 mg(7)/0.25 mg(7)-35 mcg tablet Take 1 tablet every day by oral route. Tri-Sprinte c (28) 0.18 mg(7)/0.215 mg(7)/0.25 mg(7)-35 mcg tablet Take 1 tablet every day by oral route. No 1 Q1D Tri-Sprint ec (28) 0.18 mg(7)/0.21 5 mg(7)/0.25 mg(7)-35 mcg tablet Take 1 tablet every day by oral route. [facility] bupropion HCl SR 150 mg tablet,12 hr sustained-r elease TAKE 1 TABLET BY MOUTH TWICE DAILY DIRECTED bupropion HCl SR 150 mg tablet,12 hr sustained-r elease TAKE 1 TABLET BY MOUTH TWICE DAILY DIRECTED No bupropion HCl SR 150 mg tablet,12 hr sustained- release TAKE 1 TABLET BY MOUTH TWICE DAILY DIRECTED [facility] montelukast 10 mg tablet Take 1 tablet every day by oral route as directed for 30 days. montelukast 10 mg tablet Take 1 tablet every day by oral route as directed for 30 days. No montelukas t 10 mg tablet Take 1 tablet every day by oral route as directed for 30 days. [facility] norgestimat e-ethinyl estradiol 0.18 mg/0.215mg/ 0.25mg-35 mcg(28)tabl et TAKE 1 TABLET BY MOUTH EVERY DAY norgestimat e-ethinyl estradiol 0.18 mg/0.215mg/ 0.25mg-35 mcg(28)tabl et TAKE 1 TABLET BY MOUTH EVERY DAY No norgestima te-ethinyl estradiol 0.18 mg/0.215mg /0.25mg-35 mcg(28)tab let TAKE 1 TABLET BY MOUTH EVERY DAY [facility] phentermine 37.5 mg tablet TAKE 1 TABLET BY MOUTH EVERY DAY phentermine 37.5 mg tablet TAKE 1 TABLET BY MOUTH EVERY DAY No phentermin e 37.5 mg tablet TAKE 1 TABLET BY MOUTH EVERY DAY [facility] spironolact one 50 mg tablet TAKE 1 TABLET BY MOUTH EVERY DAY spironolact one 50 mg tablet TAKE 1 TABLET BY MOUTH EVERY DAY No spironolac tone 50 mg tablet TAKE 1 TABLET BY MOUTH EVERY DAY [facility] Symbicort 160 mcg-4.5 mcg/actuati on HFA aerosol inhaler INHALE 2 PUFFS BY MOUTH TWICE A DAY Symbicort 160 mcg-4.5 mcg/actuati on HFA aerosol inhaler INHALE 2 PUFFS BY MOUTH TWICE A DAY No Symbicort 160 mcg-4.5 mcg/actuat ion HFA aerosol inhaler INHALE 2 PUFFS BY MOUTH TWICE A DAY [facility] albuterol sulfate HFA 90 mcg/actuati on aerosol inhaler albuterol sulfate HFA 90 mcg/actuati on aerosol inhaler No albuterol sulfate HFA 90 mcg/actuat ion aerosol inhaler [facility] buspirone 5 mg tablet Take 1 tablet twice a day by oral route. buspirone 5 mg tablet Take 1 tablet twice a day by oral route. No buspirone 5 mg tablet Take 1 tablet twice a day by oral route. [facility] Wellbutrin SR 150 mg tablet, 12 hr sustained-r elease Take 1 tablet twice a day by oral route as directed for 30 days. Wellbutrin SR 150 mg tablet, 12 hr sustained-r elease Take 1 tablet twice a day by oral route as directed for 30 days. No 1 BID Wellbutrin SR 150 mg tablet, 12 hr sustained- release Take 1 tablet twice a day by oral route as directed for 30 days. [facility] Immunizations Ordered Immunization Name Filled Immunization Name Date Status Comments Source meningococcal MCV4P - ML meningococcal MCV4P - ML 2018-03-07 00:00:00 Completed [facility] meningococcal MCV4P - ML meningococcal MCV4P - ML 2018-03-07 00:00:00 Completed [facility] meningococcal MCV4P - ML meningococcal MCV4P - ML 2018-03-07 00:00:00 Completed [facility] meningococcal MCV4P - ML meningococcal MCV4P - ML 2018-03-07 00:00:00 Completed [facility] meningococcal MCV4P - ML meningococcal MCV4P - ML 2018-03-07 00:00:00 Completed [facility] meningococcal MCV4P - ML meningococcal MCV4P - ML 2018-03-07 00:00:00 Completed [facility] meningococcal MCV4P - ML meningococcal MCV4P - ML 2018-03-07 00:00:00 Completed [facility] meningococcal MCV4P - ML meningococcal MCV4P - ML 2018-03-07 00:00:00 Completed [facility] meningococcal MCV4P - ML meningococcal MCV4P - ML 2018-03-07 00:00:00 Completed [facility] meningococcal MCV4P - ML meningococcal MCV4P - ML 2018-03-07 00:00:00 Completed [facility] meningococcal MCV4P - ML meningococcal MCV4P - ML 2018-03-07 00:00:00 Completed [facility] meningococcal MCV4P - ML meningococcal MCV4P - ML 2015-12-17 00:00:00 Completed [facility] meningococcal MCV4P - ML meningococcal MCV4P - ML 2015-12-17 00:00:00 Completed [facility] meningococcal MCV4P - ML meningococcal MCV4P - ML 2015-12-17 00:00:00 Completed [facility] meningococcal MCV4P - ML meningococcal MCV4P - ML 2015-12-17 00:00:00 Completed [facility] meningococcal MCV4P - ML meningococcal MCV4P - ML 2015-12-17 00:00:00 Completed [facility] meningococcal MCV4P - ML meningococcal MCV4P - ML 2015-12-17 00:00:00 Completed [facility] meningococcal MCV4P - ML meningococcal MCV4P - ML 2015-12-17 00:00:00 Completed [facility] meningococcal MCV4P - ML meningococcal MCV4P - ML 2015-12-17 00:00:00 Completed [facility] meningococcal MCV4P - ML meningococcal MCV4P - ML 2015-12-17 00:00:00 Completed [facility] meningococcal MCV4P - ML meningococcal MCV4P - ML 2015-12-17 00:00:00 Completed [facility] meningococcal MCV4P - ML meningococcal MCV4P - ML 2015-12-17 00:00:00 Completed [facility] meningococcal MCV4P - ML meningococcal MCV4P - ML 2010-03-09 00:00:00 Completed [facility] Hep A, ped/adol, 2 dose - ML Hep A, ped/adol, 2 dose - ML 2010-03-09 00:00:00 Completed [facility] Tdap - ML Tdap - ML 2010-03-09 00:00:00 Completed [facility] meningococcal MCV4P - ML meningococcal MCV4P - ML 2010-03-09 00:00:00 Completed [facility] Hep A, ped/adol, 2 dose - ML Hep A, ped/adol, 2 dose - ML 2010-03-09 00:00:00 Completed [facility] Tdap - ML Tdap - ML 2010-03-09 00:00:00 Completed [facility] meningococcal MCV4P - ML meningococcal MCV4P - ML 2010-03-09 00:00:00 Completed [facility] Hep A, ped/adol, 2 dose - ML Hep A, ped/adol, 2 dose - ML 2010-03-09 00:00:00 Completed [facility] Tdap - ML Tdap - ML 2010-03-09 00:00:00 Completed [facility] meningococcal MCV4P - ML meningococcal MCV4P - ML 2010-03-09 00:00:00 Completed [facility] Hep A, ped/adol, 2 dose - ML Hep A, ped/adol, 2 dose - ML 2010-03-09 00:00:00 Completed [facility] Tdap - ML Tdap - ML 2010-03-09 00:00:00 Completed [facility] meningococcal MCV4P - ML meningococcal MCV4P - ML 2010-03-09 00:00:00 Completed [facility] Hep A, ped/adol, 2 dose - ML Hep A, ped/adol, 2 dose - ML 2010-03-09 00:00:00 Completed [facility] Tdap - ML Tdap - ML 2010-03-09 00:00:00 Completed [facility] meningococcal MCV4P - ML meningococcal MCV4P - ML 2010-03-09 00:00:00 Completed [facility] Hep A, ped/adol, 2 dose - ML Hep A, ped/adol, 2 dose - ML 2010-03-09 00:00:00 Completed [facility] Tdap - ML Tdap - ML 2010-03-09 00:00:00 Completed [facility] meningococcal MCV4P - ML meningococcal MCV4P - ML 2010-03-09 00:00:00 Completed [facility] Hep A, ped/adol, 2 dose - ML Hep A, ped/adol, 2 dose - ML 2010-03-09 00:00:00 Completed [facility] Tdap - ML Tdap - ML 2010-03-09 00:00:00 Completed [facility] meningococcal MCV4P - ML meningococcal MCV4P - ML 2010-03-09 00:00:00 Completed [facility] Hep A, ped/adol, 2 dose - ML Hep A, ped/adol, 2 dose - ML 2010-03-09 00:00:00 Completed [facility] Tdap - ML Tdap - ML 2010-03-09 00:00:00 Completed [facility] meningococcal MCV4P - ML meningococcal MCV4P - ML 2010-03-09 00:00:00 Completed [facility] Hep A, ped/adol, 2 dose - ML Hep A, ped/adol, 2 dose - ML 2010-03-09 00:00:00 Completed [facility] Tdap - ML Tdap - ML 2010-03-09 00:00:00 Completed [facility] meningococcal MCV4P - ML meningococcal MCV4P - ML 2010-03-09 00:00:00 Completed [facility] Hep A, ped/adol, 2 dose - ML Hep A, ped/adol, 2 dose - ML 2010-03-09 00:00:00 Completed [facility] Tdap - ML Tdap - ML 2010-03-09 00:00:00 Completed [facility] meningococcal MCV4P - ML meningococcal MCV4P - ML 2010-03-09 00:00:00 Completed [facility] Hep A, ped/adol, 2 dose - ML Hep A, ped/adol, 2 dose - ML 2010-03-09 00:00:00 Completed [facility] Tdap - ML Tdap - ML 2010-03-09 00:00:00 Completed [facility] Hep A, ped/adol, 2 dose - ML Hep A, ped/adol, 2 dose - ML 2008-11-18 00:00:00 Completed [facility] varicella - ML varicella - ML 2008-11-18 00:00:00 Completed [facility] Hep A, ped/adol, 2 dose - ML Hep A, ped/adol, 2 dose - ML 2008-11-18 00:00:00 Completed [facility] varicella - ML varicella - ML 2008-11-18 00:00:00 Completed [facility] Hep A, ped/adol, 2 dose - ML Hep A, ped/adol, 2 dose - ML 2008-11-18 00:00:00 Completed [facility] varicella - ML varicella - ML 2008-11-18 00:00:00 Completed [facility] Hep A, ped/adol, 2 dose - ML Hep A, ped/adol, 2 dose - ML 2008-11-18 00:00:00 Completed [facility] varicella - ML varicella - ML 2008-11-18 00:00:00 Completed [facility] Hep A, ped/adol, 2 dose - ML Hep A, ped/adol, 2 dose - ML 2008-11-18 00:00:00 Completed [facility] varicella - ML varicella - ML 2008-11-18 00:00:00 Completed [facility] Hep A, ped/adol, 2 dose - ML Hep A, ped/adol, 2 dose - ML 2008-11-18 00:00:00 Completed [facility] varicella - ML varicella - ML 2008-11-18 00:00:00 Completed [facility] Hep A, ped/adol, 2 dose - ML Hep A, ped/adol, 2 dose - ML 2008-11-18 00:00:00 Completed [facility] varicella - ML varicella - ML 2008-11-18 00:00:00 Completed [facility] Hep A, ped/adol, 2 dose - ML Hep A, ped/adol, 2 dose - ML 2008-11-18 00:00:00 Completed [facility] varicella - ML varicella - ML 2008-11-18 00:00:00 Completed [facility] Hep A, ped/adol, 2 dose - ML Hep A, ped/adol, 2 dose - ML 2008-11-18 00:00:00 Completed [facility] varicella - ML varicella - ML 2008-11-18 00:00:00 Completed [facility] Hep A, ped/adol, 2 dose - ML Hep A, ped/adol, 2 dose - ML 2008-11-18 00:00:00 Completed [facility] varicella - ML varicella - ML 2008-11-18 00:00:00 Completed [facility] Hep A, ped/adol, 2 dose - ML Hep A, ped/adol, 2 dose - ML 2008-11-18 00:00:00 Completed [facility] varicella - ML varicella - ML 2008-11-18 00:00:00 Completed [facility] varicella - ML varicella - ML 2000 00:00:00 Completed [facility] pneumococcal conjugate PCV 7 - ML pneumococcal conjugate PCV 7 - ML 2000 00:00:00 Completed [facility] varicella - ML varicella - ML 2000 00:00:00 Completed [facility] pneumococcal conjugate PCV 7 - ML pneumococcal conjugate PCV 7 - ML 2000 00:00:00 Completed [facility] varicella - ML varicella - ML 2000 00:00:00 Completed [facility] pneumococcal conjugate PCV 7 - ML pneumococcal conjugate PCV 7 - ML 2000 00:00:00 Completed [facility] varicella - ML varicella - ML 2000 00:00:00 Completed [facility] pneumococcal conjugate PCV 7 - ML pneumococcal conjugate PCV 7 - ML 2000 00:00:00 Completed [facility] varicella - ML varicella - ML 2000 00:00:00 Completed [facility] pneumococcal conjugate PCV 7 - ML pneumococcal conjugate PCV 7 - ML 2000 00:00:00 Completed [facility] varicella - ML varicella - ML 2000 00:00:00 Completed [facility] pneumococcal conjugate PCV 7 - ML pneumococcal conjugate PCV 7 - ML 2000 00:00:00 Completed [facility] varicella - ML varicella - ML 2000 00:00:00 Completed [facility] pneumococcal conjugate PCV 7 - ML pneumococcal conjugate PCV 7 - ML 2000 00:00:00 Completed [facility] varicella - ML varicella - ML 2000 00:00:00 Completed [facility] pneumococcal conjugate PCV 7 - ML pneumococcal conjugate PCV 7 - ML 2000 00:00:00 Completed [facility] varicella - ML varicella - ML 2000 00:00:00 Completed [facility] pneumococcal conjugate PCV 7 - ML pneumococcal conjugate PCV 7 - ML 2000 00:00:00 Completed [facility] varicella - ML varicella - ML 2000 00:00:00 Completed [facility] pneumococcal conjugate PCV 7 - ML pneumococcal conjugate PCV 7 - ML 2000 00:00:00 Completed [facility] varicella - ML varicella - ML 2000 00:00:00 Completed [facility] pneumococcal conjugate PCV 7 - ML pneumococcal conjugate PCV 7 - ML 2000 00:00:00 Completed [facility] meningococcal MCV4P - ML meningococcal MCV4P - ML Unknown Completed [facility] Hep A, ped/adol, 2 dose - ML Hep A, ped/adol, 2 dose - ML Unknown Completed [facility] Tdap - ML Tdap - ML Unknown Completed [facility] varicella - ML varicella - ML Unknown Completed [facility] pneumococcal conjugate PCV 7 - ML pneumococcal conjugate PCV 7 - ML Unknown Completed [facility] Vital Signs Vital Name Observation Time Observation Value Comments Merlin keane height 2023-06-20 16:20:00 61 [in_i] Commo n [facility] weight 2023-06-20 16:20:00 155 [lb_av] Comm on [facility] bmi 2023-06-20 16:20:00 29.28 kg/m2 Comm on [facility] BP Diastolic 2023-05-20 00:00:00 85 mm[Hg] [facility] Height 2023-05-20 00:00:00 60 [in_i] [facility] BP Systolic 2023-05-20 00:00:00 130 mm[Hg] [facility] BMI (Body Mass Index) 2023-05-20 00:00:00 31.2 kg/m2 [facility] Body Weight 2023-05-20 00:00:00 159.8 [lb_av] [facility] Diastolic 2023-02-18 00:00:00 84 mm[Hg] [facility] Height 2023-02-18 00:00:00 60 [in_i] [facility] Body Weight 2023-02-18 00:00:00 161 [lb_av] [facility] BP Systolic 2023-02-18 00:00:00 135 mm[Hg] [facility] BMI (Body Mass Index) 2023-02-18 00:00:00 31.4 kg/m2 [facility] BMI (Body Mass Index) 2023-01-19 00:00:00 31.2 kg/m2 [facility] Body Weight 2023-01-19 00:00:00 159.9 [lb_av] [facility] BP Systolic 2023-01-19 00:00:00 124 mm[Hg] [facility] BP Diastolic 2023-01-19 00:00:00 81 mm[Hg] [facility] Height 2023-01-19 00:00:00 60 [in_i] [facility] Body Weight 2022-12-22 00:00:00 174.4 [lb_av] [facility] BMI (Body Mass Index) 2022-12-22 00:00:00 34.1 kg/m2 [facility] BP Systolic 2022-12-22 00:00:00 134 mm[Hg] [facility] BP Diastolic 2022-12-22 00:00:00 85 mm[Hg] [facility] Height 2022-12-22 00:00:00 60 [in_i] [facility] BP Diastolic 2022-12-15 00:00:00 79 mm[Hg] [facility] Height 2022-12-15 00:00:00 60 [in_i] [facility] BMI (Body Mass Index) 2022-12-15 00:00:00 33.6 kg/m2 [facility] BP Systolic 2022-12-15 00:00:00 116 mm[Hg] [facility] Body Weight 2022-12-15 00:00:00 172 [lb_av] [facility] BP Diastolic 2022-12-08 00:00:00 84 mm[Hg] [facility] Height 2022-12-08 00:00:00 60 [in_i] [facility] BMI (Body Mass Index) 2022-12-08 00:00:00 33.5 kg/m2 [facility] BP Systolic 2022-12-08 00:00:00 125 mm[Hg] [facility] Body Weight 2022-12-08 00:00:00 171.7 [lb_av] [facility] BP Diastolic 2022-12-01 00:00:00 85 mm[Hg] [facility] Height 2022-12-01 00:00:00 60 [in_i] [facility] BMI (Body Mass Index) 2022-12-01 00:00:00 33.7 kg/m2 [facility] BP Systolic 2022-12-01 00:00:00 131 mm[Hg] [facility] Body Weight 2022-12-01 00:00:00 172.6 [lb_av] [facility] BP Diastolic 2022-11-10 00:00:00 76 mm[Hg] [facility] Height 2022-11-10 00:00:00 60 [in_i] [facility] BMI (Body Mass Index) 2022-11-10 00:00:00 32 kg/m2 [facility] BP Systolic 2022-11-10 00:00:00 121 mm[Hg] [facility] Body Weight 2022-11-10 00:00:00 164 [lb_av] [facility] BP Diastolic 2022-10-13 00:00:00 69 mm[Hg] [facility] Height 2022-10-13 00:00:00 60 [in_i] [facility] BMI (Body Mass Index) 2022-10-13 00:00:00 31.3 kg/m2 [facility] BP Systolic 2022-10-13 00:00:00 106 mm[Hg] [facility] Body Weight 2022-10-13 00:00:00 160.2 [lb_av] [facility] BP Diastolic 2022-09-15 00:00:00 73 mm[Hg] [facility] Height 2022-09-15 00:00:00 60 [in_i] [facility] BMI (Body Mass Index) 2022-09-15 00:00:00 30.8 kg/m2 [facility] BP Systolic 2022-09-15 00:00:00 113 mm[Hg] [facility] Body Weight 2022-09-15 00:00:00 157.9 [lb_av] [facility] BP Diastolic 2022-08-18 00:00:00 75 mm[Hg] [facility] Height 2022-08-18 00:00:00 60 [in_i] [facility] BMI (Body Mass Index) 2022-08-18 00:00:00 29.5 kg/m2 [facility] BP Systolic 2022-08-18 00:00:00 115 mm[Hg] [facility] Body Weight 2022-08-18 00:00:00 151 [lb_av] [facility] BP Diastolic 2022-07-21 00:00:00 76 mm[Hg] [facility] Height 2022-07-21 00:00:00 60 [in_i] [facility] BMI (Body Mass Index) 2022-07-21 00:00:00 28.4 kg/m2 [facility] BP Systolic 2022-07-21 00:00:00 129 mm[Hg] [facility] Body Weight 2022-07-21 00:00:00 145.5 [lb_av] [facility] BP Systolic 2022-06-23 00:00:00 120 mm[Hg] [facility] Body Weight 2022-06-23 00:00:00 151.5 [lb_av] [facility] BP Diastolic 2022-06-23 00:00:00 87 mm[Hg] [facility] Height 2022-06-23 00:00:00 60 [in_i] [facility] BMI (Body Mass Index) 2022-06-23 00:00:00 29.6 kg/m2 [facility] BP Diastolic 2022-05-26 00:00:00 75 mm[Hg] [facility] Height 2022-05-26 00:00:00 60 [in_i] [facility] BMI (Body Mass Index) 2022-05-26 00:00:00 29.9 kg/m2 [facility] BP Systolic 2022-05-26 00:00:00 122 mm[Hg] [facility] Body Weight 2022-05-26 00:00:00 153.1 [lb_av] [facility] height 2022-04-28 14:00:00 61 [in_i] [facility] weight 2022-04-28 14:00:00 151 [lb_av] Comm on [facility] temperature 2022-04-28 14:00:00 97.5 [degF] Com [facility] bmi 2022-04-28 14:00:00 28.53 kg/m2 Comm [facility] oximetry 2022-04-28 14:00:00 100 % Commo [facility] respiratory rate 2022-04-28 14:00:00 18 /min [facility] blood pressure systolic 2022-04-28 14:00:00 134 mm[Hg] [facility] blood pressure diastolic 2022-04-28 14:00:00 81 mm[Hg] Common [facility] height 2022-03-24 15:50:00 61 [in_i] Commo n [facility] weight 2022-03-24 15:50:00 150.7 [lb_av] Co mmon [facility] temperature 2022-03-24 15:50:00 97.2 [degF] Com [facility] bmi 2022-03-24 15:50:00 28.47 kg/m2 Comm on [facility] oximetry 2022-03-24 15:50:00 99 % Commo [facility] respiratory rate 2022-03-24 15:50:00 18 /min [facility] blood pressure systolic 2022-03-24 15:50:00 117 mm[Hg] [facility] blood pressure diastolic 2022-03-24 15:50:00 71 mm[Hg] [facility] height 2022-02-17 16:00:00 61 [in_i] Commo n [facility] weight 2022-02-17 16:00:00 148.1 [lb_av] Co m[facility] temperature 2022-02-17 16:00:00 97.9 [degF] Com mon [facility] bmi 2022-02-17 16:00:00 27.98 kg/m2 Comm [facility] oximetry 2022-02-17 16:00:00 96 % Commo n [facility] respiratory rate 2022-02-17 16:00:00 17 /min [facility] blood pressure systolic 2022-02-17 16:00:00 121 mm[Hg] [facility] blood pressure diastolic 2022-02-17 16:00:00 67 mm[Hg] [facility] height 2022-01-18 16:10:00 61 [in_i] Commo n [facility] weight 2022-01-18 16:10:00 143.4 [lb_av] [facility] mmon [facility] temperature 2022-01-18 16:10:00 97.9 [degF] Com [facility] bmi 2022-01-18 16:10:00 27.09 kg/m2 Comm [facility] oximetry 2022-01-18 16:10:00 100 % Commo n [facility] respiratory rate 2022-01-18 16:10:00 18 /min [facility] blood pressure systolic 2022-01-18 16:10:00 129 mm[Hg] [facility] blood pressure diastolic 2022-01-18 16:10:00 71 mm[Hg] [facility] height 2021-12-21 13:50:00 61 [in_i] Commo n [facility] weight 2021-12-21 13:50:00 138 [lb_av] Comm on [facility] temperature 2021-12-21 13:50:00 98.0 [degF] Com [facility] bmi 2021-12-21 13:50:00 26.07 kg/m2 Comm on [facility] oximetry 2021-12-21 13:50:00 100 % Commo n [facility] respiratory rate 2021-12-21 13:50:00 16 /min [facility] blood pressure systolic 2021-12-21 13:50:00 121 mm[Hg] [facility] blood pressure diastolic 2021-12-21 13:50:00 74 mm[Hg] [facility] Systolic blood pressure 2021-12-11 14:27:00 120 mm[Hg] [facility] Diastolic blood pressure 2021-12-11 14:27:00 83 mm[Hg] [facility] Heart rate 2021-12-11 14:27:00 76 /min [facility] Body height 2021-12-11 14:27:00 152.4 cm [facility] Body weight 2021-12-11 14:27:00 63.957 kg [facility] BMI 2021-12-11 14:27:00 27.54 kg/m2 [facility] Oxygen saturation in Arterial blood by Pulse oximetry 2021-12-11 14:27:00 98 /min [facility] blood pressure diastolic 2021-11-12 13:40:00 58 mm[Hg] [facility] height 2021-11-12 13:40:00 60 [in_i] Commo n [facility] weight 2021-11-12 13:40:00 141.4 [lb_av] Co mmon [facility] temperature 2021-11-12 13:40:00 98.1 [degF] Com mon [facility] bmi 2021-11-12 13:40:00 27.61 kg/m2 Comm on [facility] oximetry 2021-11-12 13:40:00 100 % Commo n [facility] respiratory rate 2021-11-12 13:40:00 18 /min [facility] blood pressure systolic 2021-11-12 13:40:00 121 mm[Hg] [facility] Procedures Procedure Date / Time Performed Performing Clinician Source US, obstetric, limited 2022-12-08 00:00:00 [facility] US, obstetric, limited 2022-11-10 00:00:00 [facility] ULTRASOUND REPEAT 2022-10-13 00:00:00 [facility] ULTRASOUND, UTERUS REAL TIME WITH IMAGE DOC, AND MATERNAL EVAL PLUS DETAILED ANATOMIC EXAMINATION, TRANSABDOMINAL APPROACH; SINGLE OR FIRST GESTATION 2022-07-21 00:00:00 [facility] US, obstetric, limited 2022-07-21 00:00:00 [facility] US, obstetric, limited 2022-06-23 00:00:00 [facility] US, obstetric, limited 2022-05-26 00:00:00 [facility] EXTERNAL PROVIDER RECORDS 2022-01-19 05:01:00 Do ctor Unassigned, Landa [facility] Plan of Care Planned Activity Planned Date Details Comments Source Diagnostic Test Pending 2023-02-18 00:00:00 urinalysis, dipstick [code = urinalysis, dipstick] [facility] Instructions [facility] Encounters Start Date/Time End Date/Time Encounter Type Admission Type Attending Clinicians Care Facility Care Department Encounter ID Source 2023-10-06 14:03:00 Outpatient Lo, [facility] [id number] [facility] 2023-07-21 11:19:00 Outpatient Lo, [facility] [id number] [facility] 2023-05-31 14:48:00 Outpatient Lo, [facility] [id number] [facility] 2021-12-18 14:13:01 Outpatient Lo, [facility] [id number] [facility] 2021-11-12 13:07:03 Outpatient Lo, [facility] [id number] [facility] 2023-12-22 00:00:00 2023-12-22 00:00:00 (WEB) STLMLC STLMLC [id number] [facility] 2023-10-06 00:00:00 2023-10-06 00:00:00 (TEL) STLMLC STLMLC [id number] [facility] 2023-08-27 00:00:00 2023-08-27 00:00:00 Outpatient White_M MMG MMG [id number] [facility] 2023-07-28 00:00:00 2023-07-28 00:00:00 (TEL) STLMLC STLMLC [id number] [facility] 2023-07-25 00:00:00 2023-07-25 00:00:00 (WEB) STLMLC STLMLC [id number] [facility] 2023-07-23 00:00:00 2023-07-23 00:00:00 Outpatient White_M MMG MMG [id number] [facility] 2023-07-14 00:00:00 2023-07-14 00:00:00 (TEL) STLMLC STLMLC [id number] [facility] 2023-06-29 00:00:00 2023-06-29 00:00:00 (WEB) STLMLC STLMLC [id number] [facility] 2023-06-20 00:00:00 2023-06-20 00:00:00 (WEB) STLMLC STLMLC [id number] [facility] 2023-06-20 00:00:00 2023-06-20 00:00:00 OFFICE VISIT ESTAB PT LEVEL 4 STLMLC STLMLC [id number] [facility] 2023-06-18 00:00:00 2023-06-18 00:00:00 Outpatient White_M MMG MMG [id number] [facility] 2023-06-10 00:00:00 2023-06-10 00:00:00 Outpatient White_M MMG MMG [id number] [facility] 2023-05-31 00:00:00 2023-05-31 00:00:00 (TEL) STLMLC STLMLC [id number] [facility] 2023-05-20 00:00:00 2023-05-20 00:00:00 Rosalba Gonzalez MD: [address], [address], [place] [address] , Ph. [phone] MMG [facility]in - OBGYN [id number] [facility] 2023-04-11 00:00:00 2023-04-11 00:00:00 Outpatient GC_GCBZW_Ka diyala_S PRIV PRIV [id number] [facility] 2023-04-10 00:00:00 2023-04-10 00:00:00 Outpatient GC_GCBZW_Ka diyala_S PRIV PRIV [id number] [facility] 2023-03-29 00:00:00 2023-03-29 00:00:00 Outpatient White_M MMG MMG [id number] [facility] 2023-02-18 00:00:00 2023-02-18 00:00:00 Outpatient White_M MMG MMG [id number] [facility] 2023-02-18 00:00:00 2023-02-18 00:00:00 Outpatient White_M MMG MMG [id number] [facility] 2023-02-18 00:00:00 2023-02-18 00:00:00 Rosalba Gonzalez MD: [address], [address], [place] [address] , Ph. [phone] MMG [facility] - OBGYN [id number] [facility] 2023-02-02 00:00:00 2023-02-02 00:00:00 Outpatient White_M MMG MMG [id number] [facility] 2023-01-20 00:00:00 2023-01-20 00:00:00 Outpatient White_M MMG MMG [id number] [facility] 2023-01-19 00:00:00 2023-01-19 00:00:00 Outpatient White_M MMG MMG [id number] [facility] 2023-01-19 00:00:00 2023-01-19 00:00:00 Rosalba Gonzalez MD: [address], [address], [place] [address] , Ph. [phone] MM[facility] [id number] [facility] 2023-01-13 00:00:00 2023-01-13 00:00:00 Outpatient White_M MMG MMG [id number] [facility] 2022-12-30 00:00:00 2022-12-30 00:00:00 Outpatient White_M MMG MMG [id number] [facility] 2022-12-27 23:56:00 2022-12-29 10:25:00 Inpatient ROSALBA [facility] [id number] [facility] 2022-12-22 00:00:00 2022-12-22 00:00:00 Outpatient White_M MMG MMG [id number] [facility] 2022-12-22 00:00:00 2022-12-22 00:00:00 Rosalba Gonzalez MD: [address], [address], [place] [address] , Ph. [phone] MM[facility] [id number] [facility] 2022-12-16 21:33:00 2022-12-16 23:25:00 Emergency ER RA BARRIOS [facility] [id number] [facility] 2022-12-15 15:09:00 2022-12-15 16:45:00 Emergency ER ROSALBA GONZALEZ [facility] [id number] [facility] 2022-12-15 00:00:00 2022-12-15 00:00:00 Outpatient White_M MMG MMG [id number] [facility] 2022-12-15 00:00:00 2022-12-15 00:00:00 Rosalba Gonzalez MD: [address], [address], [place] [address] , Ph. [phone] [facility] [id number] [facility] 2022-12-09 00:00:00 2022-12-09 00:00:00 Outpatient White_M MMG MMG [id number] [facility] 2022-12-08 00:00:00 2022-12-08 00:00:00 Rosalba Gonzalez MD: [address], [address], [place] [address] , Ph. [phone] [facility] [id number] 2022-12-01 00:00:00 2022-12-01 00:00:00 Outpatient White_M MMG MMG [id number] [facility] 2022-12-01 00:00:00 2022-12-01 00:00:00 Outpatient White_M MMG MMG [id number] [facility] 2022-12-01 00:00:00 2022-12-01 00:00:00 Rosalba Gonzalez MD: [address], [address], [place] [address] , Ph. [phone] [facility] [id number] [facility] 2022-11-10 15:05:00 2022-11-10 15:05:00 Outpatient DIPTI POSEY [facility] [id number] [facility] 2022-11-10 00:00:00 2022-11-10 00:00:00 Outpatient White_M MMG MMG [id number] [facility] 2022-11-10 00:00:00 2022-11-10 00:00:00 [facility] [address], [place] [address] , Ph. [phone] MMG [facility] [id number] [facility] 2022-11-04 00:00:00 2022-11-04 00:00:00 Outpatient White_M MMG MMG [id number] [facility] 2022-10-13 09:09:00 2022-10-13 09:09:00 Outpatient DIPTI POSEY [facility] [id number] [facility] 2022-10-13 00:00:00 2022-10-13 00:00:00 Dipti Neal [facility]: [address], [place] [address] , Ph. [phone] MMG [facility] [id number] [facility] 2022-10-12 00:00:00 2022-10-12 00:00:00 Outpatient White_M MMG MMG [id number] [facility] 2022-10-01 00:00:00 2022-10-01 00:00:00 Outpatient White_M MMG MMG [id number] [facility] 2022-09-24 00:00:00 2022-09-24 00:00:00 Outpatient White_M MMG MMG [id number] [facility] 2022-09-15 00:00:00 2022-09-15 00:00:00 Outpatient White_M MMG MMG [id number] [facility] 2022-09-15 00:00:00 2022-09-15 00:00:00 Outpatient White_M MMG MMG [id number] [facility] 2022-09-15 00:00:00 2022-09-15 00:00:00 Rosalba Gonzalez MD: [address], [address], [place] [address] , Ph. [phone] [facility] [id number] [facility] 2022-08-18 00:00:00 2022-08-18 00:00:00 Outpatient White_M MMG MMG [id number] [facility] 2022-08-18 00:00:00 2022-08-18 00:00:00 Outpatient White_M MMG MMG [id number] [facility] 2022-08-18 00:00:00 2022-08-18 00:00:00 Rosalba Gonzalez MD: [address], [address], [place] [address] , Ph. [phone] MMG [facility] - OBGYN [id number] [facility] 2022-08-16 09:16:00 2022-08-16 09:16:00 Outpatient ROSALBA SNOW [facility] [id number] [facility] 2022-08-12 00:00:00 2022-08-12 00:00:00 Outpatient White_M MMG MMG [id number] [facility] 2022-07-21 00:00:00 2022-07-21 00:00:00 Outpatient White_M MMG MMG [id number] [facility] 2022-07-21 00:00:00 2022-07-21 00:00:00 Rosalba Gonzalez MD: [address], [address], [place] [address] , Ph. [phone] [facility] [id number] [facility] 2022-07-01 00:00:00 2022-07-01 00:00:00 Outpatient White_M MMG MMG [id number] [facility] 2022-06-23 00:00:00 2022-06-23 00:00:00 Outpatient White_M MMG MMG [id number] [facility] 2022-06-23 00:00:00 2022-06-23 00:00:00 Rosalba Gonzalez MD: [address], [place] [address] , Ph. [phone] MMG [facility] - OBGYN [id number] [facility] 2022-06-17 00:00:00 2022-06-17 00:00:00 Outpatient White_M MMG MMG [id number] [facility] 2022-05-26 10:55:00 2022-05-26 10:55:00 Outpatient DIPTI POSEY [facility] [id number] [facility] 2022-05-26 00:00:00 2022-05-26 00:00:00 Outpatient White_M MMG MMG [id number] [facility] 2022-05-26 00:00:00 2022-05-26 00:00:00 KARIS Gunderson-: [address] [place] [address] , Ph. [phone] MMG [facility] - OBGYN [id number] [facility] 2022-04-30 00:00:00 2022-04-30 00:00:00 [facility] [id number] 2022-04-28 00:00:00 2022-04-28 00:00:00 OFFICE VISIT ESTAB PT LEVEL 4 [facility] [id number] [facility] 2022-04-26 00:00:00 2022-04-26 00:00:00 Outpatient Shield MMG MMG [id number] [facility] 2022-03-24 00:00:00 2022-03-24 00:00:00 OFFICE VISIT ESTAB PT LEVEL 4 STLMLC STLMLC [id number] [facility] 2022-03-04 00:00:00 2022-03-04 00:00:00 (WEB) STLMLC STLMLC [id number] [facility] 2022-03-04 00:00:00 2022-03-04 00:00:00 (WEB) STLMLC STLMLC [id number] [facility] 2022-02-17 00:00:00 2022-02-17 00:00:00 OFFICE VISIT ESTAB PT LEVEL 4 STLMLC STLMLC [id number] [facility] 2022-02-11 00:00:00 2022-02-11 00:00:00 (WEB) STLMLC STLMLC [id number] [facility] 2022-01-20 00:00:00 2022-01-20 00:00:00 (WEB) STLMLC STLMLC [id number] [facility] 2022-01-19 00:00:00 2022-01-19 00:00:00 Orders Only Doctor Unassigned, Landa [facility] [id number] [facility] 2022-01-18 00:00:00 2022-01-18 00:00:00 OFFICE VISIT ESTAB PT LEVEL 4 STLMLC STLMLC [id number] [facility] 2022-01-07 00:00:00 2022-01-07 00:00:00 Outpatient STEVO_ANNAI INESSA CORDERO [id number] Katina sinha [facility] 2021-12-21 00:00:00 2021-12-21 00:00:00 OFFICE VISIT ESTAB PT LEVEL 4 STLMLC STLMLC [id number] [facility] 2021-12-15 08:40:00 2021-12-15 09:22:31 Outpatient ROQUE KRAFT [facility] [id number] [facility] 2021-12-15 08:40:00 2021-12-15 09:22:31 Office Visit [facility]que [facility] SAMUEL[facility] [id number] [facility] 2021-12-15 08:40:00 2021-12-15 09:22:31 Outpatient ROQUE KRAFT [facility] [id number] [facility] 2021-12-11 09:00:00 2021-12-11 09:40:00 Office Visit Roque Jernigan [facility] SAMUEL?[facility] [id number] [facility] 2021-12-11 09:00:00 2021-12-11 09:00:00 Outpatient ROUQE KRAFT [facility] [id number] [facility] 2021-12-11 09:00:00 2021-12-11 09:00:00 Outpatient ROQUE KRAFT [facility] [id number] [facility] 2021-12-11 00:00:00 2021-12-11 00:00:00 Orders Only Doctor Unassigned, Landa [facility] [id number] [facility] 2021-11-16 00:00:00 2021-11-16 00:00:00 (WEB) STLMLC STLMLC [id number] [facility] 2021-11-13 00:00:00 2021-11-13 00:00:00 (WEB) STLMLC STLMLC [id number] [facility] 2021-11-13 00:00:00 2021-11-13 00:00:00 (WEB) STLMLC STLMLC [id number] [facility] 2021-11-13 00:00:00 2021-11-13 00:00:00 (WEB) STLMLC STLMLC [id number] [facility] 2021-11-13 00:00:00 2021-11-13 00:00:00 (WEB) STLMLC STLMLC [id number] [facility] 2021-11-12 00:00:00 2021-11-12 00:00:00 OFFICE VISIT NEW PT LEVEL 3 STLMLC STLMLC [id number] [facility] 2020-07-13 15:28:00 2020-07-13 17:25:00 Emergency TR QUINTIN DAVILA [facility] [id number] [facility] 2020-04-30 02:24:00 2020-04-30 02:24:00 Outpatient Shield MMG MMG [id number] [facility] 2017-10-17 15:25:00 2017-10-17 15:25:00 Outpatient DESIREE ARNOLD MARYAM [facility] [id number] [facility] 2017-07-28 13:24:00 2017-07-28 13:24:00 Outpatient JOSE E PINEDA [facility] [id number] [facility] 2017-07-21 13:19:00 2017-07-21 13:19:00 Outpatient JOSE E PINEDA [facility] [id number] [facility] 2017-06-29 17:59:00 2017-07-01 10:00:00 Inpatient RA ALAS [facility] [id number] [facility] 2017-06-24 16:55:00 2017-06-25 17:05:00 Inpatient RA ALAS [facility] [id number] [facility] 2017-06-23 10:59:00 2017-06-23 10:59:00 Outpatient RA ALAS [facility] [id number] [facility] 2017-06-02 10:26:00 2017-06-02 10:26:00 Outpatient RA ALAS [facility] [id number] [facility] 2017-04-25 09:16:00 2017-04-25 09:16:00 Outpatient RA ALAS [facility] [id number] [facility] 2017-01-31 09:51:00 2017-01-31 09:51:00 Outpatient RA ALAS [facility] [id number] [facility] 2016-12-10 10:22:00 2016-12-10 10:22:00 Outpatient ANNELISE [facility] [id number] [facility] Results Test Description Test Time Test Comments Results Result Co mments Source hepatitis B surface [id number] 07:28:00* Test Item Value Reference Range Interpretation Comme nts .hepatitis B surface antigen (test code = .hepatitis B surface antigen) negative negative [facility] W Auto Differential panel - [id number] 01:19:00 * Test Item Value Reference Range Interpretation Comme nts white blood count (test code = white blood count) 9.9 K/uL 4.0-11.5 red blood count (test code = red blood count) 3.36 M/uL 3.80-5.20 L hemoglobin (test code = hemoglobin) 10.5 g/dL 10.5-15.7 hematocrit (test code = hematocrit) 31.6 % 34.0-50.0 L mean corpuscular volume (ashwin t code = mean corpuscular volume) 94.0 fL 86.0-100.0 mean corpuscular hemoglobin (test code = mean corpuscular hemoglobin) 31.3 pg 26.2-33.4 mean corpuscular HGB conc (t est code = mean corpuscular HGB conc) 33.2 g/dL 30.0-34.0 red cell distribution width (test code = red cell distribution width) 13.7 % 12.0-15.5 platelet count (test code = platelet count) 223 K/uL 165-450 mean platelet volume (test c ode = mean platelet volume) 8.6 fL 9.4-12.6 L neutrophils % (test code = neutrophils %) 61.7 % 44.4-80.1 Ig% (test code = Ig%) 0.3 % 0.0-0.4 lymphocyte% (test code = lymphocyte%) 27.3 % 10.0-50.0 mono % (test code = mono %) 8.7 % 3.6-12.0 eos % (test code = eos %) 1.7 % 0.0-5.4 basophil % (test code = baso bjorn %) 0.3 % 0.1-1.2 absolute neutrophil count (t est code = absolute neutrophil count) 6.13 K/uL 1.56-6.13 Ig# (test code = Ig#) 0.03 K/uL 0.00-0.03 lymph # (test code = lymph #) 2.71 K/uL 1.18-3.74 mono # (test code = mono #) 0.86 K/uL 0.24-0.86 eos # (test code = eos #) 0.17 K/uL 0.04-0.36 basophil # (test code = baso bjorn #) 0.03 K/uL 0.01-0.08 NRBC% (test code = NRBC%) 0 /100 WBC 0-0.2 NRBC# (test code = NRBC#) 0 K/[facility]* Test Item Value Reference Range Interpretation Comme nts RPR (test code = RPR) nonreactive nonreactive [facility] Differential panel - [id number] 01:47:00 * Test Item Value Reference Range Interpretation Comme nts white blood count (test code = white blood count) 7.7 K/uL 4.0-11.5 red blood count (test code = red blood count) 3.92 M/uL 3.80-5.20 hemoglobin (test code = hemoglobin) 12.3 g/dL 10.5-15.7 hematocrit (test code = hematocrit) 36.2 % 34.0-50.0 mean corpuscular volume (ashwin t code = mean corpuscular volume) 92.3 fL 86.0-100.0 mean corpuscular hemoglobin (test code = mean corpuscular hemoglobin) 31.4 pg 26.2-33.4 mean corpuscular HGB conc (t est code = mean corpuscular HGB conc) 34.0 g/dL 30.0-34.0 red cell distribution width (test code = red cell distribution width) 13.7 % 12.0-15.5 platelet count (test code = platelet count) 277 K/uL 165-450 mean platelet volume (test c ode = mean platelet volume) 9.1 fL 9.4-12.6 L neutrophils % (test code = neutrophils %) 58.5 % 44.4-80.1 Ig% (test code = Ig%) 0.3 % 0.0-0.4 lymphocyte% (test code = lymphocyte%) 31.8 % 10.0-50.0 mono % (test code = mono %) 8.0 % 3.6-12.0 eos % (test code = eos %) 1.3 % 0.0-5.4 basophil % (test code = baso bjorn %) 0.1 % 0.1-1.2 absolute neutrophil count (t est code = absolute neutrophil count) 4.49 K/uL 1.56-6.13 Ig# (test code = Ig#) 0.02 K/uL 0.00-0.03 lymph # (test code = lymph #) 2.44 K/uL 1.18-3.74 mono # (test code = mono #) 0.61 K/uL 0.24-0.86 eos # (test code = eos #) 0.10 K/uL 0.04-0.36 basophil # (test code = baso bjorn #) 0.01 K/uL 0.01-0.08 NRBC% (test code = NRBC%) 0 /100 WBC 0-0.2 NRBC# (test code = NRBC#) 0 K/uL [facility] [id number] 01:05:00* Test Item Value Reference Range Interpretation Comme nts antibody screen (test code = antibody screen) positive blood type (test code = blood type) on [facility] (dipstick) panel - [id number] 10:57:00* Test Item Value Reference Range Interpretation Comme nts Leukocytes (test code = Leukocytes) Trace Nitrite (test code = Nitrite) negative Urobilinogen (test code = Urobilinogen) .2 Protein (test code = Protein) Negative pH (test code = pH) 6.0 Blood (test code = Blood) Non-Hemolyzed: Trace Specific [place] (test code = Specific [place]) 1.030 Ketone (test code = Ketone) Negative Bilirubin (test code = Bilirubin) Negative Glucose (test code = Glucose) Negative Appearance (test code = Appearance) Clear Color (test code = Color) Yellow [facility] [id number] 22:28:00* Test Item Value Reference Range Interpretation Comme nts color, urine (test code = co rosa, urine) light yellow appearance, urine (test code = appearance, urine) clear clear urine glucose (test code = u rine glucose) negative negative bilirubin, urine (test code = bilirubin, urine) negative negative ketone, urine (test code = ketone, urine) negative negative specific gravity,urine (test code = specific gravity,urine) 1.014 1.003-1.030 blood urine (test code = blo od urine) 1+ (small) negative A pH,urine (test code = pH,urine) 6.000 5-9 protein urine (UA) (test cod e = protein urine (UA)) negative negative urobilinogen, urine (test co de = urobilinogen, urine) normal 0.2-1.0 nitrate, urine (test code = nitrate, urine) negative negative urine leukocyte esterase (te st code = urine leukocyte esterase) negative negative RBC, urine (test code = RBC, urine) 6-10 0-5 A WBC, urine (test code = WBC, urine) 1-5 0-5 epithelial cell (test code = epithelial cell) 6-10 0-5 bacteria, urine (test code = bacteria, urine) small(1+) none detect casts,urine (test code = casts,urine) 2-5 none detect urine culture added? (test c ode = urine culture added?) no [facility] - [id number] 14:16:00* Test Item Value Reference Range Interpretation Comme nts Leukocytes (test code = Leukocytes) Trace Nitrite (test code = Nitrite) negative Urobilinogen (test code = Urobilinogen) .2 Protein (test code = Protein) Negative pH (test code = pH) 6.5 Blood (test code = Blood) Small Specific [place] (test code = Specific [place]) 1.025 Ketone (test code = Ketone) Negative Bilirubin (test code = Bilirubin) Negative Glucose (test code = Glucose) Negative Appearance (test code = Appearance) Clear Color (test code = Color) Yellow [facility] (dipstick) panel - [id number] 14:56:00* Test Item Value Reference Range Interpretation Comme nts Leukocytes (test code = Leukocytes) Negative Nitrite (test code = Nitrite) negative Urobilinogen (test code = Urobilinogen) .2 Protein (test code = Protein) Negative pH (test code = pH) 6.0 Blood (test code = Blood) Moderate Specific [place] (test code = Specific [place]) 1.020 Ketone (test code = Ketone) Negative Bilirubin (test code = Bilirubin) Negative Glucose (test code = Glucose) Negative Appearance (test code = Appearance) Clear Color (test code = Color) Yellow [facility] CenterChlamydia trachomatis+Neisseria gonorrhoeae DNA [Presence] in Specimen by BERTO with probe [id number] 00:00:00* Test Item Value Reference Range Interpretation Comme nts chlamydia trachomatis by ivis l-time PCR (reflex to azithromycin resistance by pyrosequencing) (test code = chlamydia trachomatis by real-time PCR (reflex to azithromycin resistance by pyrosequencing)) negative neisseria gonorrhoeae by ivis l-time PCR (reflex to antibiotic resistance by molecular analysis) (test code = neisseria gonorrhoeae by real-time PCR (reflex to antibiotic resistance by molecular analysis)) [facility] [Presence] in Vaginal fluid 2022-12-04 00:00:00* Test Item Value Reference Range Interpretation Comme nts group B streptococcus (gbs) by real-time PCR (test code = group B streptococcus (gbs) by real-time PCR) negative [facility] Center[facility] (dipstick) panel - [id number] 10:20:40* Test Item Value Reference Range Interpretation Comme nts Leukocytes (test code = Leukocytes) Negative Nitrite (test code = Nitrite) negative Urobilinogen (test code = Urobilinogen) .2 Protein (test code = Protein) Negative pH (test code = pH) 6.0 Blood (test code = Blood) Negative Specific [place] (test code = Specific [place]) 1.020 Ketone (test code = Ketone) Negative Bilirubin (test code = Bilirubin) Negative Glucose (test code = Glucose) Negative Appearance (test code = Appearance) Clear Color (test code = Color) Yellow [facility] Centerculture,urine pres id [id number] 16:29:00* Test Item Value Reference Range Interpretation Comme nts culture,urine (test code = culture,urine) specimen has been received in lab and IS in progress. [facility] CenterUrinalysis macro (dipstick) panel - [id number] 11:48:34* Test Item Value Reference Range Interpretation Comme nts Leukocytes (test code = Leukocytes) Trace Nitrite (test code = Nitrite) negative Urobilinogen (test code = Urobilinogen) .2 Protein (test code = Protein) Negative pH (test code = pH) 6.0 Blood (test code = Blood) Moderate Specific [place] (test code = Specific [place]) 1.020 Ketone (test code = Ketone) Negative Bilirubin (test code = Bilirubin) Negative Glucose (test code = Glucose) 500 Appearance (test code = Appearance) Clear Color (test code = Color) Yellow [facility] CenterGlucose [Mass/volume] in Serum or Plasma --1 hour post dose [id number] 15:14:00* Test Item Value Reference Range Interpretation Comme nts Results (test code = Results) 117 [facility]12 panel drug [id number] 13:29:00* Test Item Value Reference Range Interpretation Comme nts drug screen note (test code = drug screen note) . [facility] 12:25:00* Test Item Value Reference Range Interpretation Comme nts RPR (test code = RPR) nonreactive nonreactive [facility]HIV [facility]2022-10-13 12:23:00* Test Item Value Reference Range Interpretation Comme nts HIV P24 Ag (test code = HIV P24 Ag) non-reactive nonreactive HIV-1/2 Ab (test code = HIV- 1/2 Ab) non-reactive nonreactive [facility] Centerglucose edgar 1 HR fasting [id number] 11:43:00Glucose Edgar 1 hr [facility] - Blood 2022-10-13 11:08:00* Test Item Value Reference Range Interpretation Comme nts white blood count (test code = white blood count) 9.3 K/uL 4.0-11.5 red blood count (test code = red blood count) 4.41 M/uL 3.80-5.20 hemoglobin (test code = hemoglobin) 13.7 g/dL 10.5-15.7 hematocrit (test code = hematocrit) 41.4 % 34.0-50.0 mean corpuscular volume (ashwin t code = mean corpuscular volume) 93.9 fL 86.0-100.0 mean corpuscular hemoglobin (test code = mean corpuscular hemoglobin) 31.1 pg 26.2-33.4 mean corpuscular HGB conc (t est code = mean corpuscular HGB conc) 33.1 g/dL 30.0-34.0 red cell distribution width (test code = red cell distribution width) 13.3 % 12.0-15.5 platelet count (test code = platelet count) 294 K/uL 165-450 mean platelet volume (test c ode = mean platelet volume) 8.5 fL 9.4-12.6 L neutrophils % (test code = neutrophils %) 69.6 % 44.4-80.1 Ig% (test code = Ig%) 0.4 % 0.0-0.4 lymphocyte% (test code = lymphocyte%) 21.8 % 10.0-50.0 mono % (test code = mono %) 5.8 % 3.6-12.0 eos % (test code = eos %) 2.1 % 0.0-5.4 basophil % (test code = baso bjorn %) 0.3 % 0.1-1.2 absolute neutrophil count (t est code = absolute neutrophil count) 6.49 K/uL 1.56-6.13 H Ig# (test code = Ig#) 0.04 K/uL 0.00-0.03 H lymph # (test code = lymph #) 2.04 K/uL 1.18-3.74 mono # (test code = mono #) 0.54 K/uL 0.24-0.86 eos # (test code = eos #) 0.20 K/uL 0.04-0.36 basophil # (test code = baso bjorn #) 0.03 K/uL 0.01-0.08 NRBC% (test code = NRBC%) 0 /100 WBC 0-0.2 NRBC# (test code = NRBC#) 0 K/uL [facility] CenterIndirect antiglobulin test.unspecified reagent [Presence] in Serum or [id number] 09:29:00* Test Item Value Reference Range Interpretation Comme nts ind christian (test code = ind christian) negative [facility] CenterUrinalysis macro (dipstick) panel - [id number] 08:30:03* Test Item Value Reference Range Interpretation Comme nts Leukocytes (test code = Leukocytes) Trace Nitrite (test code = Nitrite) negative Urobilinogen (test code = Urobilinogen) .2 Protein (test code = Protein) Negative pH (test code = pH) 6.0 Blood (test code = Blood) Negative Specific [place] (test code = Specific [place]) 1.025 Ketone (test code = Ketone) Negative Bilirubin (test code = Bilirubin) Negative Glucose (test code = Glucose) Negative Appearance (test code = Appearance) Clear Color (test code = Color) Yellow [facility] CenterUrinalysis macro (dipstick) panel - [id number] 11:21:43* Test Item Value Reference Range Interpretation Comme nts Leukocytes (test code = Leukocytes) Small Nitrite (test code = Nitrite) negative Urobilinogen (test code = Urobilinogen) .2 Protein (test code = Protein) Negative pH (test code = pH) 6.5 Blood (test code = Blood) Negative Specific [place] (test code = Specific [place]) 1.015 Ketone (test code = Ketone) Negative Bilirubin (test code = Bilirubin) Negative Glucose (test code = Glucose) Negative Appearance (test code = Appearance) Clear Color (test code = Color) Yellow [facility] CenterUrinalysis macro (dipstick) panel - [id number] 15:46:20* Test Item Value Reference Range Interpretation Comme nts Leukocytes (test code = Leukocytes) Small Nitrite (test code = Nitrite) negative Urobilinogen (test code = Urobilinogen) .2 Protein (test code = Protein) Negative pH (test code = pH) 5.5 Blood (test code = Blood) Negative Specific [place] (test code = Specific [place]) 1.025 Ketone (test code = Ketone) Negative Bilirubin (test code = Bilirubin) Negative Glucose (test code = Glucose) 100 Appearance (test code = Appearance) Clear Color (test code = Color) Yellow [facility] CenterUrinalysis macro (dipstick) panel - [id number] 11:33:17* Test Item Value Reference Range Interpretation Comme nts Leukocytes (test code = Leukocytes) Negative Nitrite (test code = Nitrite) negative Urobilinogen (test code = Urobilinogen) .2 Protein (test code = Protein) Negative pH (test code = pH) 6.5 Blood (test code = Blood) Negative Specific [place] (test code = Specific [place]) 1.015 Ketone (test code = Ketone) Negative Bilirubin (test code = Bilirubin) Negative Glucose (test code = Glucose) Negative Appearance (test code = Appearance) Clear Color (test code = Color) Yellow [facility] Centeraneuploidy risk, chromosome specific circulating cell free (ccf) DNA, maternal [id number] 00:00:00* Test Item Value Reference Range Interpretation Comme nts 15Q11.2 deletion (test code = 15Q11.2 deletion) negative 1P36 deletion syndrome (test code = 1P36 deletion syndrome) negative 22Q11.2 deletion syndrome (t est code = 22Q11.2 deletion syndrome) negative 4P deletion (test code = 4P deletion) negative 5P deletion (test code = 5P deletion) negative chromosome 13 aneuploidy (te st code = chromosome 13 aneuploidy) negative chromosome 18 aneuploidy (te st code = chromosome 18 aneuploidy) negative chromosome 21 aneuploidy (te st code = chromosome 21 aneuploidy) negative sex chromosome analysis (ashwin t code = sex chromosome analysis) male [facility] GroupGenetic screen in Specimen by Molecular genetics method [id number] 00:00:00* Test Item Value Reference Range Interpretation Comme nts 1-qrqsvior-dcspatifsrnmgnzu synthase deficiency (test code = 3-fhrejkjf-aqujblexdhcqnevs synthase deficiency) negative adenosine deaminase deficien cy (test code = adenosine deaminase deficiency) negative alpha thalassemia, HbA1/HbA2 -related (test code = alpha thalassemia, HbA1/HbA2-related) negative alpha-mannosidosis (test cod e = alpha-mannosidosis) negative alpha-sarcoglycanopathy (ashwin t code = alpha-sarcoglycanopathy) negative alstrom syndrome (test code = alstrom syndrome) negative andermann syndrome (test cod e = andermann syndrome) negative argininemia (test code = argininemia) negative argininosuccinic aciduria (t est code = argininosuccinic aciduria) negative aspartylglucosaminuria (test code = aspartylglucosaminuria) negative ataxia with vitamin E defici ency (test code = ataxia with vitamin E deficiency) negative ataxia-telangiectasia (test code = ataxia-telangiectasia) negative pis3b-kdpojhz disorders (ashwin t code = jsj1i-npgltwp disorders) negative autoimmune polyglandular syn drome type 1 (test code = autoimmune polyglandular syndrome type 1) negative autosomal recessive osteopet rosis type 1 (test code = autosomal recessive osteopetrosis type 1) negative autosomal recessive polycyst ic kidney disease, pkhd1-related (test code = autosomal recessive polycystic kidney disease, pkhd1-related) negative autosomal recessive spastic ataxia of [place] (test code = autosomal recessive spastic ataxia of [place]) negative bardet-biedl syndrome, bbs1- related (test code = bardet-biedl syndrome, bbs1-related) negative bardet-biedl syndrome, bbs10 -related (test code = bardet-biedl syndrome, bsi53-gggynhh) negative bardet-biedl syndrome, bbs12 -related (test code = bardet-biedl syndrome, ild75-fbtqtqu) negative bardet-biedl syndrome, bbs2- related (test code = bardet-biedl syndrome, bbs2-related) negative ayj5z-wysfefy disorders (ashwin t code = xaa1g-pzaufaj disorders) negative beta-sarcoglycanopathy (test code = beta-sarcoglycanopathy) negative biotinidase deficiency (test code = biotinidase deficiency) negative samayoa syndrome (test code = samayoa syndrome) negative calpainopathy (test code = calpainopathy) negative shree disease (test code = shree disease) negative carbamoylphosphate synthetas e I deficiency (test code = carbamoylphosphate synthetase I deficiency) negative carnitine palmitoyltransfera se ia deficiency (test code = carnitine palmitoyltransferase ia deficiency) negative carnitine palmitoyltransfera se II deficiency (test code = carnitine palmitoyltransferase II deficiency) negative cartilage-hair hypoplasia (t est code = cartilage-hair hypoplasia) negative cerebrotendinous xanthomatos is (test code = cerebrotendinous xanthomatosis) negative citrullinemia type 1 (test c ode = citrullinemia type 1) negative cln3-related neuronal ceroid lipofuscinosis (test code = cln3-related neuronal ceroid lipofuscinosis) negative cln5-related neuronal ceroid lipofuscinosis (test code = cln5-related neuronal ceroid lipofuscinosis) negative cln8-related neuronal ceroid lipofuscinosis (test code = cln8-related neuronal ceroid lipofuscinosis) negative huber syndrome (test code = huber syndrome) negative lya7n2-uqfrswn [place] syndro me (test code = ctl8c0-prdlduz [place] syndrome) negative hai7y8-bdyixdc [place] syndro me (test code = idy2l3-cdgvivk [place] syndrome) negative combined pituitary hormone deficiency, prop1-related (test code = combined pituitary hormone deficiency, prop1-related) negative congenital adrenal hyperplas ia, [id number] (test code = congenital adrenal hyperplasia, kpg04i3-vgadkzi) negative congenital adrenal hyperplas ia, lju21m3-palwajx (test code = congenital adrenal hyperplasia, esk92a5-chmwchz) negative congenital disorder of glyco sylation type ia (test code = congenital disorder of glycosylation type ia) negative congenital disorder of glyco sylation type ic (test code = congenital disorder of glycosylation type ic) negative congenital disorder of glycosylation, mpi-related (test code = congenital disorder of glycosylation, mpi-related) negative costeff optic atrophy syndro me (test code = costeff optic atrophy syndrome) negative cystic fibrosis (test code = cystic fibrosis) negative cystinosis (test code = cystinosis) negative D-bifunctional protein defic iency (test code = D-bifunctional protein deficiency) negative delta-sarcoglycanopathy (ashwin t code = delta-sarcoglycanopathy) negative dihydrolipoamide dehydrogena se deficiency (test code = dihydrolipoamide dehydrogenase deficiency) negative dysferlinopathy (test code = dysferlinopathy) negative dystrophinopathy (including duchenne/byrd muscular dystrophy) (test code = dystrophinopathy (including duchenne/byrd muscular dystrophy)) negative ercc6-related disorders (ashwin t code = ercc6-related disorders) negative ercc8-related disorders (ashwin t code = ercc8-related disorders) negative evc-related styles-van crevel d syndrome (test code = evc-related styles-van creveld syndrome) negative evc2-related styles-van creve ld syndrome (test code = evc2-related styles-van creveld syndrome) negative fabry disease (test code = f abry disease) negative familial dysautonomia (test code = familial dysautonomia) negative familial hyperinsulinism, abcc8-related (test code = familial hyperinsulinism, abcc8-related) negative familial hyperinsulinism, zqgx40-ptvwjue (test code = familial hyperinsulinism, gyzx06-gpwvtfo) negative familial mediterranean fever (test code = familial mediterranean fever) negative fanconi anemia complementati on group A (test code = fanconi anemia complementation group A) negative fanconi anemia, fancc-relate d (test code = fanconi anemia, fancc-related) negative fkrp-related disorders (test code = fkrp-related disorders) negative fktn-related disorders (test code = fktn-related disorders) negative fragile X syndrome (test cod e = fragile X syndrome) negative free sialic acid storage dis orders (test code = free sialic acid storage disorders) negative galactokinase deficiency (te st code = galactokinase deficiency) negative galactosemia (test code = galactosemia) negative gamma-sarcoglycanopathy (ashwin t code = gamma-sarcoglycanopathy) negative gaucher disease (test code = gaucher disease) negative gjb2-related dfnb1 nonsyndro davion hearing loss and deafness (test code = gjb2-related dfnb1 nonsyndromic hearing loss and deafness) negative glb1-related disorders (test code = glb1-related disorders) negative glutaric acidemia, gcdh-rela sindy (test code = glutaric acidemia, gcdh-related) negative glycine encephalopathy, amt- related (test code = glycine encephalopathy, amt-related) negative glycine encephalopathy, gldc -related (test code = glycine encephalopathy, gldc-related) negative glycogen storage disease typ e ia (test code = glycogen storage disease type ia) negative glycogen storage disease typ e ib (test code = glycogen storage disease type ib) negative glycogen storage disease typ e III (test code = glycogen storage disease type III) negative gne myopathy (test code = gn e myopathy) negative gnptab-related disorders (te st code = gnptab-related disorders) negative hadha-related disorders (ashwin t code = hadha-related disorders) negative Hb beta chain-related hemoglobinopathy (test code = Hb beta chain-related hemoglobinopathy) negative hereditary fructose intolera nce (test code = hereditary fructose intolerance) negative hexosaminidase A deficiency (test code = hexosaminidase A deficiency) negative hmg-coa lyase deficiency (te st code = hmg-coa lyase deficiency) negative holocarboxylase synthetase deficiency (test code = holocarboxylase synthetase deficiency) negative homocystinuria, cbs-related (test code = homocystinuria, cbs-related) negative hydrolethalus syndrome (test code = hydrolethalus syndrome) negative hypophosphatasia (test code = hypophosphatasia) negative isovaleric acidemia (test co de = isovaleric acidemia) negative moises syndrome 2 (test cod e = moises syndrome 2) negative junctional epidermolysis bul losa, lama3-related (test code = junctional epidermolysis bullosa, lama3-related) negative junctional epidermolysis bul losa, lamb3-related (test code = junctional epidermolysis bullosa, lamb3-related) negative junctional epidermolysis bul losa, lamc2-related (test code = junctional epidermolysis bullosa, lamc2-related) negative krabbe disease (test code = krabbe disease) negative timoteo syndrome, samoan-canad chucky type (test code = timoteo syndrome, samoan-israeli type) negative lipoid congenital adrenal hyperplasia (test code = lipoid congenital adrenal hyperplasia) negative lysosomal acid lipase defici ency (test code = lysosomal acid lipase deficiency) negative maple syrup urine disease ty pe ia (test code = maple syrup urine disease type ia) negative maple syrup urine disease ty pe ib (test code = maple syrup urine disease type ib) negative maple syrup urine disease ty pe II (test code = maple syrup urine disease type II) negative medium chain acyl-coa dehydr ogenase deficiency (test code = medium chain acyl-coa dehydrogenase deficiency) negative megalencephalic leukoencepha lopathy with subcortical cysts (test code = megalencephalic leukoencephalopathy with subcortical cysts) negative metachromatic leukodystrophy (test code = metachromatic leukodystrophy) negative methylmalonic acidemia, cbla type (test code = methylmalonic acidemia, cbla type) negative methylmalonic acidemia, cblb type (test code = methylmalonic acidemia, cblb type) negative methylmalonic acidemia, mmut -related (test code = methylmalonic acidemia, mmut-related) negative methylmalonic aciduria and homocystinuria, cblc type (test code = methylmalonic aciduria and homocystinuria, cblc type) negative mks1-related disorders (test code = mks1-related disorders) negative mucolipidosis III gamma (ashwin t code = mucolipidosis III gamma) negative mucolipidosis IV (test code = mucolipidosis IV) negative mucopolysaccharidosis type I (test code = mucopolysaccharidosis type I) negative mucopolysaccharidosis type I I (test code = mucopolysaccharidosis type II) negative mucopolysaccharidosis type i iia (test code = mucopolysaccharidosis type iiia) negative mucopolysaccharidosis type i iib (test code = mucopolysaccharidosis type iiib) negative mucopolysaccharidosis type i iic (test code = mucopolysaccharidosis type iiic) negative muscular dystrophy, lama2-re lated (test code = muscular dystrophy, lama2-related) negative lte8k-zybyomb disorders (ashwin t code = pwx5z-tyjcqok disorders) negative neb-related nemaline myopath y (test code = neb-related nemaline myopathy) negative nephrotic syndrome, nphs1-re lated (test code = nephrotic syndrome, nphs1-related) negative nephrotic syndrome, nphs2-re lated (test code = nephrotic syndrome, nphs2-related) negative neuronal ceroid lipofuscinos is, cln6-related (test code = neuronal ceroid lipofuscinosis, cln6-related) negative ana lilia-pick disease type C1 (test code = ana lilia-pick disease type C1) negative ana lilia-pick disease type C2 (test code = ana lilia-pick disease type C2) negative ana lilia-pick disease, smpd1- related (test code = ana lilia-pick disease, smpd1-related) negative nijmegen breakage syndrome ( test code = nijmegen breakage syndrome) negative ornithine transcarbamylase deficiency (test code = ornithine transcarbamylase deficiency) negative pcca-related propionic acide katrina (test code = pcca-related propionic acidemia) negative pccb-related propionic acide katrina (test code = pccb-related propionic acidemia) negative yqww04-fsaaxhz disorders (te st code = qpae92-dkqozyf disorders) negative pendred syndrome (test code = pendred syndrome) negative peroxisome biogenesis disord er type 1 (test code = peroxisome biogenesis disorder type 1) negative peroxisome biogenesis disord er type 3 (test code = peroxisome biogenesis disorder type 3) negative peroxisome biogenesis disord er type 4 (test code = peroxisome biogenesis disorder type 4) negative peroxisome biogenesis disord er type 5 (test code = peroxisome biogenesis disorder type 5) negative peroxisome biogenesis disord er type 6 (test code = peroxisome biogenesis disorder type 6) negative phenylalanine hydroxylase de ficiency (test code = phenylalanine hydroxylase deficiency) negative pomgnt-related disorders (te st code = pomgnt-related disorders) negative pompe disease (test code = p ompe disease) negative ppt1-related neuronal ceroid lipofuscinosis (test code = ppt1-related neuronal ceroid lipofuscinosis) negative primary carnitine deficiency (test code = primary carnitine deficiency) negative primary hyperoxaluria type 1 (test code = primary hyperoxaluria type 1) negative primary hyperoxaluria type 2 (test code = primary hyperoxaluria type 2) negative primary hyperoxaluria type 3 (test code = primary hyperoxaluria type 3) negative pycnodysostosis (test code = pycnodysostosis) negative pyruvate carboxylase deficie ncy (test code = pyruvate carboxylase deficiency) negative rhizomelic chondrodysplasia punctata type 1 (test code = rhizomelic chondrodysplasia punctata type 1) negative rtel1-related disorders (ashwin t code = rtel1-related disorders) negative sandhoff disease (test code = sandhoff disease) negative short-chain acyl-coa dehydro genase deficiency (test code = short-chain acyl-coa dehydrogenase deficiency) negative sjogren-el syndrome (te st code = sjogren-el syndrome) negative jug11q1-phiobxh disorders (t est code = tsf10q0-dajveiq disorders) negative ipfwx-zlemn-xujlz syndrome ( test code = yaowh-pduav-kreim syndrome) negative spastic paraplegia type 15 ( test code = spastic paraplegia type 15) negative spinal muscular atrophy (ashwin t code = spinal muscular atrophy) negative spondylothoracic dysostosis (test code = spondylothoracic dysostosis) negative tgm1-related autosomal reces sive congenital ichthyosis (test code = tgm1-related autosomal recessive congenital ichthyosis) negative tpp1-related neuronal ceroid lipofuscinosis (test code = tpp1-related neuronal ceroid lipofuscinosis) negative tyrosine hydroxylase deficie ncy (test code = tyrosine hydroxylase deficiency) negative tyrosinemia type I (test cod e = tyrosinemia type I) negative tyrosinemia type II (test co de = tyrosinemia type II) negative hpb3l-uxfmgav disorders (ashwin t code = cup0m-eekrvsn disorders) negative vyr7v-ybirjzl disorders (ashwin t code = fxi2u-kwlghas disorders) negative usher syndrome type 3 (test code = usher syndrome type 3) negative icon-wsgk-zjstj acyl-coa dehydrogenase deficiency (test code = puay-vojc-ysbfl acyl-coa dehydrogenase deficiency) positive A raquel disease (test code = raquel disease) negative X-linked adrenal hypoplasia congenita (test code = X-linked adrenal hypoplasia congenita) negative X-linked adrenoleukodystroph y (test code = X-linked adrenoleukodystrophy) negative X-linked alport syndrome (te st code = X-linked alport syndrome) negative X-linked juvenile retinoschi sis (test code = X-linked juvenile retinoschisis) negative X-linked myotubular myopathy (test code = X-linked myotubular myopathy) negative X-linked severe combined immunodeficiency (test code = X-linked severe combined immunodeficiency) negative xeroderma pigmentosum group A (test code = xeroderma pigmentosum group A) negative xeroderma pigmentosum group C (test code = xeroderma pigmentosum group C) negative [facility] - [id number] 15:10:22* Test Item Value Reference Range Interpretation Comme nts Leukocytes (test code = Leukocytes) Trace Nitrite (test code = Nitrite) negative Urobilinogen (test code = Urobilinogen) .2 Protein (test code = Protein) Negative pH (test code = pH) 7.0 Blood (test code = Blood) Negative Specific [place] (test code = Specific [place]) 1.025 Ketone (test code = Ketone) Negative Bilirubin (test code = Bilirubin) Negative Glucose (test code = Glucose) Negative Appearance (test code = Appearance) Clear Color (test code = Color) Yellow [facility], LB + CT/NG/TV + reflex HR [id number] 00:00:00* Test Item Value Reference Range Interpretation Comme nts TP reflex HPV ASCUS,CT/NG/TV (test code = TP reflex HPV ASCUS,CT/NG/TV) normal CT/NG (test code = CT/NG) normal trichomonas vaginalis addon - swab (test code = trichomonas vaginalis addon - swab) normal [facility] Group[facility],urine pres id [id number] 09:20:00* Test Item Value Reference Range Interpretation Comme nts culture,urine (test code = culture,urine) no growth after 1 day [facility] [Presence] in Serum 2022-05-27 08:15:00* Test Item Value Reference Range Interpretation Comme nts .hepatitis B surface antigen (test code = .hepatitis B surface antigen) negative negative [facility] Group[facility] Ab [Presence] in Serum by [id number] 13:50:00* Test Item Value Reference Range Interpretation Comme nts RPR (test code = RPR) nonreactive nonreactive [facility]2 Ab [Presence] in [id number] 12:43:00* Test Item Value Reference Range Interpretation Comme nts HIV P24 Ag (test code = HIV P24 Ag) non-reactive nonreactive HIV-1/2 Ab (test code = HIV- 1/2 Ab) non-reactive nonreactive [facility]22-[facility] 12:43:00* Test Item Value Reference Range Interpretation Comme nts HIV P24 Ag (test code = HIV P24 Ag) non-reactive nonreactive HIV-1/2 Ab (test code = HIV- 1/2 Ab) non-reactive nonreactive [facility] virus Ab [Titer] in [id number] 12:21:00* Test Item Value Reference Range Interpretation Comme nts rubella IgG (test code = rub adela IgG) 7.49 IU/mL [facility] CenterDrugs identified [facility] Urine by Screen [id number] 11:55:00* Test Item Value Reference Range Interpretation Comme nts amphetamines screen urine (t est code = amphetamines screen urine) negative negative barbiturates, urine quant. ( test code = barbiturates, urine quant.) negative negative benzodiazepines screen urine (test code = benzodiazepines screen urine) negative negative cannabinoids (test code = cannabinoids) negative negative cocaine (test code = cocaine) negative negative opiates (test code = opiates) negative negative phencyclidine (test code = phencyclidine) negative negative methadone (test code = methadone) negative negative propoxyphene (test code = propoxyphene) negative negative oxycodone (test code = oxycodone) negative negative drug screen note (test code = drug screen note) . [facility] panel drug [id number] 11:41:00* Test Item Value Reference Range Interpretation Comme nts drug screen note (test code = drug screen note) . [facility] Auto Differential panel - [id number] 11:40:00 * Test Item Value Reference Range Interpretation Comme nts white blood count (test code = white blood count) 8.7 K/uL 4.0-11.5 red blood count (test code = red blood count) 4.47 M/uL 3.80-5.20 hemoglobin (test code = hemoglobin) 12.8 g/dL 10.5-15.7 hematocrit (test code = hematocrit) 40.2 % 34.0-50.0 mean corpuscular volume (ashwin t code = mean corpuscular volume) 89.9 fL 86.0-100.0 mean corpuscular hemoglobin (test code = mean corpuscular hemoglobin) 28.6 pg 26.2-33.4 mean corpuscular HGB conc (t est code = mean corpuscular HGB conc) 31.8 g/dL 30.0-34.0 red cell distribution width (test code = red cell distribution width) 12.1 % 12.0-15.5 platelet count (test code = platelet count) 323 K/uL 165-450 mean platelet volume (test c ode = mean platelet volume) 8.6 fL 9.4-12.6 L neutrophils % (test code = neutrophils %) 68.0 % 44.4-80.1 Ig% (test code = Ig%) 0.5 % 0.0-0.4 H lymphocyte% (test code = lymphocyte%) 21.6 % 10.0-50.0 mono % (test code = mono %) 6.9 % 3.6-12.0 eos % (test code = eos %) 2.5 % 0.0-5.4 basophil % (test code = baso bjorn %) 0.5 % 0.1-1.2 absolute neutrophil count (t est code = absolute neutrophil count) 5.90 K/uL 1.56-6.13 Ig# (test code = Ig#) 0.04 K/uL 0.00-0.03 H lymph # (test code = lymph #) 1.87 K/uL 1.18-3.74 mono # (test code = mono #) 0.60 K/uL 0.24-0.86 eos # (test code = eos #) 0.22 K/uL 0.04-0.36 basophil # (test code = baso bjorn #) 0.04 K/uL 0.01-0.08 NRBC% (test code = NRBC%) 0 /100 WBC 0-0.2 NRBC# (test code = NRBC#) 0 K/uL [facility] macro (dipstick) panel - [id number] 09:33:13* Test Item Value Reference Range Interpretation Comme nts Leukocytes (test code = Leukocytes) Small Nitrite (test code = Nitrite) negative Urobilinogen (test code = Urobilinogen) .2 Protein (test code = Protein) Negative pH (test code = pH) 6.0 Blood (test code = Blood) Non-Hemolyzed: Trace Specific [place] (test code = Specific [place]) 1.025 Ketone (test code = Ketone) Negative Bilirubin (test code = Bilirubin) Negative Glucose (test code = Glucose) Negative Appearance (test code = Appearance) Clear Color (test code = Color) Yellow [facility], [id number] 09:32:49* Test Item Value Reference Range Interpretation Comme nts Test (test code = Test) positive [facility]
[2024-07-24] MEDS ORDERED: dexAMETHasone 10 MG/ML VIAL ONE (11:16)
[2024-07-24] MEDS ORDERED: KETOROLAC 30 MG/ML INJ ONE (11:16)
[2024-07-24] MEDS ORDERED: MORPHINE 4 MG/ML SYR ONE (11:17)
[2024-07-24 11:52] LABS: Absolute Eosinophils 0.1 K/uL (0-0.5); Absolute Lymphocytes (CBC) 2.1 K/uL (0.7-4.9); Absolute Monocytes 0.4 K/uL (0.1-1.3); Basophils % 0.5 % (0-1.3); Eosinophils % 2.6 % (0-4.4); Hematocrit 41.3 % (36.0-45.0); Hemoglobin 14.2 g/dL (12.0-15.0); Lymphocytes % 37.7 % (15.3-44.8); MCH 30.1 pg (27.0-35.0); MCHC 34.3 g/dL (32.0-36.0); MCV 87.6 fL (80-100); MPV 7.5 fL (7.6-11.3); Monocytes % 6.3 % (3.3-12.3); Neutrophils % 52.9 % (41.7-73.7); Nucleated Red Blood Cells % 0.1 % (0-0); Platelets 352 thou/uL (152-406); RBC Red Blood Cell Count 4.71 M/uL (3.86-4.86); Red Cell Distribution Width 12.8 % (12.1-15.2)
[2024-07-24 11:59] LABS: Specific Gravity 1.012 (1.005-1.030)
[2024-07-24 12:08] LABS: Anion Gap 9.3 mEq/L (5.0-15.0); Potassium 4.3 mEq/L (3.5-5.1)
--- NOTE | 2024-07-24 12:30 | RAD REPORT ---
EXAMINATION: CT LUMBAR SPINE WITHOUT CONTRAST CLINICAL INDICATION: Lower back pain. Radiculopathy. TECHNIQUE: Axial CT images were obtained through the lumbar spine in soft tissue and bone windows wit hout intravenous contrast. Coronal and Sagittal reformatted images were created from the data set. One or more of the following dose reduction techniques were used: Automated exposure control, adjustm ent of the mA and/ or kV according to patient size, and/or iterative reconstruction. Unless otherwise specified, incidental findings do not require dedicated imaging follow-up. COMPARISON: No prior exam. FINDINGS: For purposes of this dictation, it is assumed that there are 5 non rib-bearing lumbar type vertebrae, and the most caudal fully segmented lumbar vertebra is labeled L5. No fracture seen No dislocation. Possible small left lateral disc herniation L4-5 Small disc bulge L5-S1 .. Remainder of the lumbar spine appears unremarkable IMPRESSION: No fracture seen. Possible small left lateral disc herniation L4-5 No high-grade central/foraminal stenosis seen. If the patient continues to have symptoms to suggest significant spinal pathology then MRI would be recommended.
[2024-07-24 12:36] LABS: Specific Gravity 1.012 (1.005-1.030); Urine Bilirubin NEGATIVE (Negative); Urine Blood Negative (Negative); Urine Clarity Extremely Turbid (Clear); Urine Color Light-Yellow (Yellow); Urine Glucose NEGATIVE (Negative); Urine Ketones NEGATIVE (Negative); Urine Microscopic Reflex YN NO UMIC; Urine Nitrite NEGATIVE (Negative); Urine Protein NEGATIVE (Negative); Urine Urobilinogen Normal (Normal); Urine pH 5.5 (5.0-7.0)
--- NOTE | 2024-07-24 12:45 | EDPHYS ---
Physician Documentation [facility] Name: Shannon Mcduffie Age: 24 yrs Sex: Female : 2000 Arrival Date: 07/24/2024 Time: 10:47 Bed 14 Private MD: ED Physician Ean Betancourt HPI: 07/24 12:14 This 24 yrs old Female presents to ER via Ambulatory with complaints of Back Pain. rn 12:14 The patient presents with pain that is acute. The symptoms are located in the low back. rn Onset: The symptoms/episode began/occurred 4 day(s) ago. Associated signs and symptoms: Pertinent negatives: abdominal pain, chest pain, dysuria, fever, hematuria, incontinence, nausea, numbness, tingling, urinary retention, vomiting, weakness. Modifying factors: The patient symptoms are alleviated by nothing, the patient symptoms are aggravated by any movement. Severity of symptoms: At their worst the symptoms were moderate, in the emergency department the symptoms are unchanged. The patient has not experienced similar symptoms in the past. Patient reports just started new exercise program, worked out and then Tuesday started with moderate to severe soreness and pain in the lower back. Reports sore all over really but worse with any bending or twisting of the back. No bowel or bladder issues. Reports limitation from pain but denies any weakness or numbness. No direct trauma. Does not recall a specific time when she injured back during exercise.. Historical: - Allergies: 11:12 No Known Allergies; mb9 - PMHx: 11:12 Anxiety; Asthma; depressive disorder; preeclampia; mb9 - PSHx: 11:12 None; mb9 - Immunization history:: Adult Immunizations up to date. - Infectious Disease History:: Denies. - Social history:: Smoking status: Patient denies any tobacco usage or history of. - Family history:: not pertinent. - Hospitalizations: : No recent hospitalization is reported. ROS: 12:14 Constitutional: Negative for fever, chills, and weight loss, Neck: Negative for injury, rn pain, and swelling, Cardiovascular: Negative for chest pain, palpitations, and edema, Respiratory: Negative for shortness of breath, cough, wheezing, and pleuritic chest pain, Abdomen/GI: Negative for abdominal pain, nausea, vomiting, diarrhea, and constipation, Back: Positive for low back pain : Negative for injury, bleeding, discharge, and swelling, MS/Extremity: Negative for injury and deformity, Neuro: Negative for headache, weakness, numbness, tingling, and seizure, Exam: 12:14 Constitutional: This is a well developed, well nourished patient who is awake, alert, rn appears uncomfortable, ambulatory to room without assistance Cardiovascular: Regular rate and rhythm. No pulse deficits. Respiratory: No increased work of breathing, no retractions or nasal flaring. Abdomen/GI: Soft, non-tender Back: No midline spinal tenderness. MS/ Extremity: Pulses equal, no cyanosis. Neurovascular intact. Neuro: Awake and alert, GCS 15, oriented to person, place, time, and situation. Motor strength 5/5 in all extremities. Sensory grossly intact. Vital Signs: 11:10 BP 124 / 68; Pulse 78; Resp 16; Temp 98; Pulse Ox 100% ; Weight 63.5 kg; Height 5 ft. 0 mb9 in. ; Pain 8/10; 12:16 BP 114 / 52; Pulse 86; Resp 18; Pulse Ox 100% on R/A; mb9 13:04 BP 112 / 69; Pulse 77; Resp 18; Pulse Ox 99% on R/A; mb9 11:10 Body Mass Index 27.34 (63.50 kg, 152.4 cm) mb9 11:10 Pain Scale: Adult mb9 MDM: 10:51 Medical Screening Exam initiated rn 11:52 ED course: Patient markedly improved, appears much more comfortable after pain software intern, reports pain down to a 5 out of 10 from 9 out of 10. 12:43 Differential diagnosis: Fatigue sprain, Disc herniation, disc bulge, muscle spasm. Data rn reviewed: vital signs, nurses notes, radiologic studies, CT scan, and as a result, I will discharge patient. Counseling: I had a detailed discussion with the patient and/or guardian regarding the historical points, exam findings, and any diagnostic results supporting the discharge/admit diagnosis, lab results, radiology results, the need for outpatient follow up, to return to the emergency department if symptoms worsen or persist or if there are any questions or concerns that arise at home. Special discussion: I discussed with the patient/guardian in detail that at this point there is no indication for admission to the hospital. It is understood, however, that if the symptoms persist or worsen the patient needs to return immediately for re-evaluation. Based on the history and exam findings, there is no indication for further emergent testing or inpatient evaluation. I discussed with the patient/guardian the need to see the back specialist for further evaluation of the symptoms. 12:43 Special discussion: Further emergent ED testing is not indicated at this point in time. rn I discussed with the patient/guardian in detail the need to arrange with the PCP or specialist further outpatient testing, MRI. 07/24 11:08 Order name: CBC with Diff; Complete Time: 12:32 rn 07/24 11:08 Order name: Basic Metabolic Panel; Complete Time: 12:32 rn 07/24 11:08 Order name: CK; Complete Time: 12:32 rn 07/24 11:08 Order name: Test, Urine; Complete Time: 12:32 rn 07/24 11:08 Order name: Urinalysis w/ reflexes; Complete Time: 12:42 rn 07/24 11:08 Order name: CT Lumbar Spine Wo Con; Complete Time: 12:32 rn 07/24 11:08 Order name: IV Start; Complete Time: 11:46 rn Administered Medications: 11:40 Drug: morphine IVP or IV 4 mg IVP once over 4 mins Route: IVP; Infused Over: 4 mins; mb9 Site: left antecubital; 12:16 Follow up: Response: No adverse reaction mb9 11:46 Drug: Ketorolac IVP 30 mg IVP once Route: IVP; Site: left antecubital; mb9 12:16 Follow up: Response: No adverse reaction mb9 11:46 Drug: Decadron - Dexamethasone IVP 10 mg IVP once Route: IVP; Site: left antecubital; mb9 12:16 Follow up: Response: No adverse reaction mb9 13:03 Drug: morphine IVP or IV 2 mg IVP once over 4 mins Route: IVP; Infused Over: 4 mins; mb9 Site: left antecubital; 13:16 Follow up: Response: No adverse reaction mb9 Disposition Summary: 07/24/24 12:44 Discharge Ordered Notes: Location: Home rn Problem: new rn Symptoms: have improved rn Condition: Stable rn Diagnosis - Low back pain rn - Muscle spasm of back rn - Intervertebral disc disorders with radiculopathy, lumbosacral region rn Followup: rn - With: Private Physician - When: As needed - Reason: Recheck today's complaints, Re-evaluation by your physician Discharge Instructions: - Discharge Summary Sheet rn - Acute Back Pain, Adult rn - Muscle Cramps and Spasms rn - Musculoskeletal Pain rn Forms: - Medication Reconciliation Form rn - Antibiotic internal control consultant - Prescription Opioid Use rn - Patient Portal Instructions rn - Leadership Thank You Letter rn Prescriptions: - gabapentin 100 mg Oral tablet - take 1 tablet ORAL route every 12 hours As needed; 14 tablet; Refills: 0, rn Product Selection Permitted - Cyclobenzaprine 10 mg Oral tablet - take 1 tablet ORAL route every 8 to 12 hours As needed; 15 tablet; Refills: 0, rn Product Selection Permitted - Medrol (Mikie) 4 mg Oral Tablets, Dose Pack - take 1 tablet ORAL route as directed - follow package instructions; 1 packet; rn Refills: 0, Product Selection Permitted Signatures: Dispatcher [employer] EDEan aBird MD MD rn Wilkerson, Carmina Multani, RN RN mb9 Corrections: (The following items were deleted from the chart) 11:08 11:08 CBC+H.LAB.BRZ ordered. EDMS EDMS 11:08 11:08 BASIC METABOLIC PANEL+C.LAB.BRZ ordered. EDMS EDMS 11:08 11:08 CREATINE PHOSPHOKINASE+C.LAB.BRZ ordered. EDMS EDMS 11:08 11:08 Test, Urine+UC.LAB.BRZ ordered. EDMS EDMS 11:08 11:08 Urinalysis+U.LAB.BRZ ordered. EDPA EDMS
--- NOTE | 2024-07-24 12:45 | ER ---
Nurse's Notes [facility] Name: Shannon Mcduffie Age: 24 yrs Sex: Female : 2000 Arrival Date: 07/24/2024 Time: 10:47 Bed 14 Private MD: Diagnosis: Low back pain;Muscle spasm of back;Intervertebral disc disorders with radiculopathy, lumbosacral region Presentation: 07/24 11:10 Chief complaint: Patient states: "Since Tuesday, I started having lower back pain that mb9 radiates to my hips. They feel like labor contractions and gets worse when I bend.". Coronavirus screen: Vaccine status: Patient reports being unvaccinated. Ebola Screen: No symptoms or risks identified at this time. Initial Sepsis Screen: Does the patient meet any 2 criteria? No. Patient's initial sepsis screen is negative. Does the patient have a suspected source of infection? No. Patient's initial sepsis screen is negative. Risk Assessment: Do you want to hurt yourself or someone else? Patient reports no desire to harm self or others. Onset of symptoms was July 24, 2024. 11:10 Acuity: CLAIRE 3 mb9 11:10 Method Of Arrival: Ambulatory mb9 Triage Assessment: 11:12 General: Appears in no apparent distress. Behavior is calm, cooperative. Pain: mb9 Complains of pain in back Pain radiates to pelvis Pain currently is 8 out of 10 on a pain scale. Quality of pain is described as sharp, shooting, Pain began gradually, Is intermittent. EENT: No signs and/or symptoms were reported regarding the EENT system. Neuro: Laurent Agitation-Sedation Scale (RASS): 0 - Alert and Calm Level of Consciousness is awake, alert, obeys commands, Oriented to person, place, time, situation, Appropriate for age. Cardiovascular: Patient's skin is warm and dry. Respiratory: Airway is patent Respiratory effort is even, unlabored, Respiratory pattern is regular, symmetrical. GI: No signs and/or symptoms were reported involving the gastrointestinal system. : No signs and/or symptoms were reported regarding the genitourinary system. Derm: Skin is pink, warm \\T\\ dry. Musculoskeletal: Range of motion: intact in all extremities. Historical: - Allergies: 11:12 No Known Allergies; mb9 - PMHx: 11:12 Anxiety; Asthma; depressive disorder; preeclampia; mb9 - PSHx: 11:12 None; mb9 - Immunization history:: Adult Immunizations up to date. - Infectious Disease History:: Denies. - Social history:: Smoking status: Patient denies any tobacco usage or history of. - Family history:: not pertinent. - Hospitalizations: : No recent hospitalization is reported. Screenin:13 [facility] ED Fall Risk Assessment (Adult) History of falling in the last 3 months, mb9 including since admission No falls in past 3 months (0 pts) Confusion or Disorientation No (0 pts) Intoxicated or Sedated No (0 pts) Impaired Gait No (0 pts) Mobility Assist Device Used No (0 pt) Altered Elimination No (0 pt) Score/Fall Risk Level 0 - 2 = Low Risk Oriented to surroundings, Maintained a safe environment, Educated pt \\T\\ family on fall prevention, incl call for assistance when getting out of bed. Abuse screen: Denies threats or abuse. Nutritional screening: No deficits noted. Tuberculosis screening: No symptoms or risk factors identified. Assessment: 11:13 Reassessment: see triage assessment. mb9 13:04 Reassessment: Patient and/or family updated on plan of care and expected duration. Pain mb9 level reassessed. Patient is alert, oriented x 3, equal unlabored respirations, skin warm/dry/pink. Patient states feeling better. Patient states symptoms have improved. 13:04 Reassessment: D/C pending medication wait time. mb9 Vital Signs: 11:10 BP 124 / 68; Pulse 78; Resp 16; Temp 98; Pulse Ox 100% ; Weight 63.5 kg; Height 5 ft. 0 mb9 in. ; Pain 8/10; 12:16 BP 114 / 52; Pulse 86; Resp 18; Pulse Ox 100% on R/A; mb9 13:04 BP 112 / 69; Pulse 77; Resp 18; Pulse Ox 99% on R/A; mb9 11:10 Body Mass Index 27.34 (63.50 kg, 152.4 cm) mb9 11:10 Pain Scale: Adult mb9 ED Course: 10:50 Patient arrived in ED. mr 10:51 Ean Betancourt MD is Attending Physician. rn 11:04 Carmina Jara RN is Primary Nurse. mb9 11:04 Arm band placed on. mb9 11:11 Triage completed. mb9 11:13 Bed in low position. Call light in reach. Side rails up X 1. Provided Education on: mb9 press call light if needing anything. Client placed on continuous cardiac and pulse oximetry monitoring. NIBP monitoring applied. 11:13 No provider procedures requiring assistance completed. mb9 11:46 Urinalysis w/ reflexes Sent. mb9 11:46 Test, Urine Sent. mb9 11:46 CK Sent. mb9 11:46 Basic Metabolic Panel Sent. mb9 11:46 CBC with Diff Sent. mb9 11:46 Initial lab(s) drawn, by [place], sent to lab. Inserted saline lock: 20 gauge in left 9 antecubital area, using aseptic technique. Blood collected. Flushed with 10 mL NS. 12:13 CT Lumbar Spine Wo Con In Process Unspecified. EDMS 13:15 IV discontinued, intact, bleeding controlled, No redness/swelling at site. Pressure mb9 dressing applied. Administered Medications: 11:40 Drug: morphine IVP or IV 4 mg IVP once over 4 mins Route: IVP; Infused Over: 4 mins; mb9 Site: left antecubital; 12:16 Follow up: Response: No adverse reaction mb9 11:46 Drug: Ketorolac IVP 30 mg IVP once Route: IVP; Site: left antecubital; mb9 12:16 Follow up: Response: No adverse reaction mb9 11:46 Drug: Decadron - Dexamethasone IVP 10 mg IVP once Route: IVP; Site: left antecubital; mb9 12:16 Follow up: Response: No adverse reaction mb9 13:03 Drug: morphine IVP or IV 2 mg IVP once over 4 mins Route: IVP; Infused Over: 4 mins; mb9 Site: left antecubital; 13:16 Follow up: Response: No adverse reaction mb9 Medication: 11:13 VIS not applicable for this client. mb9 Outcome: 12:44 Discharge ordered by . rn 13:15 Discharged to home ambulatory, mb9 13:15 Condition: stable 13:15 Discharge instructions given to patient, family, Instructed on discharge instructions, follow up and referral plans. Demonstrated understanding of instructions, follow-up care, medications, Prescriptions given X 3, 13:16 Patient left the ED. mb9 Signatures: Dispatcher [employer] Carmina Liu, Reg Reg mr Ean Betancourt MD MD rn Wilkerson, Carmina Multani RN RN [email or web address] Corrections: (The following items were deleted from the chart) 13:04 13:04 BP 112 / 59; Pulse 77bpm; Resp 18bpm; Pulse Ox 99% RA; mb9 mb9
[2024-07-24] MEDS ORDERED: MORPHINE 2 MG/ML SYR ONE (12:59)
[2024-07-24 14:54] VITALS: TEMP 98
[2024-07-24 14:56] VITALS: BP 112/69; O2SAT 99
== END 2024-07-24 13:16 | disposition home or self-care (01) ==
LOC: ER 10:47
DX: M62.830 Muscle spasm of back (principal); M51.17 Intervertebral disc disorders with radiculopathy, lumbosacral region
CPT/HCPCS: 85025; 80048; 36415; 82550; 81025; 81003; 72131; J1100; J2270